=== PATIENT | male | born 1960 | race Caucasian/White ===

== ENCOUNTER 2024-07-02 22:44 | Inpatient (IN) | payer OTHER, SELFPAY ==
[2024-07-02] VITALS (8 sets, daily range): BP systolic 119–138; BP diastolic 71–115; BMI 34.6; BMI 36.0
[2024-07-02 16:50] LABS: % Basophils 0.5 % (0-2); % Immature Granulocytes 0.3 % (0-0.5); % Lymphocytes 27.2 % (20.5-51.1); % Monocytes 15.1 % (1.7-9.3); % Neutrophils 55.9 % (42.2-75.2); Absolute Eosinophils 0.1 10^3/uL (0-0.7); Absolute Lymphocytes 1.6 10^3/uL (1.2-3.4); Absolute Monocytes 0.9 10^3/uL (0.1-0.6); Absolute Neutrophils 3.3 10^3/uL (1.4-6.5); Hematocrit 39.8 % (39.0-52.0); Hemoglobin 13.7 g/dL (13.0-18.0); Mean Corp Hgb Conc. 34.4 g/dL (33.0-37.0); Mean Corpuscular Hgb 30.7 pg (27.0-31.0); Mean Corpuscular Volume 89.2 fL (80.0-94.0); Mean Platelet Volume 8.3 fL (7.4-10.4); Nucleated Red Blood Cells % 0 % (-); Platelet Count 232 10^3/uL (130-400); Red Blood Cell Count 4.46 10^6/uL (4.70-6.10); Red Cell Dist. Width 13.2 % (11.5-14.5)
[2024-07-02 17:13] LABS: ALT (SGPT) 27 U/L (0-50); AST (SGOT) 32 U/L (17-59); Albumin 3.7 g/dl (3.5-5.0); Alkaline Phosphatase 66 U/L (38-126); Blood Urea Nitrogen 10 mg/dl (9-20); Calcium 8.9 mg/dl (8.4-10.2); Carbon Dioxide 21 mmol/L (22-30); Chloride 107 mmol/L (98-107); Glucose 111 mg/dl (70-99); Potassium 3.7 mmol/L (3.5-5.1); Sodium 142 mmol/L (135-145); Total Bilirubin 0.8 mg/dl (0.2-1.3); Total Protein 6.1 g/dl (6.3-8.2); eGFR > 60.00
[2024-07-02 17:22] LABS: NT-proBNP 1180 pg/ml; Troponin I < 0.012 ng/ml
--- NOTE | 2024-07-02 20:05 | ED.GENMED ---
History of Present Illness
General
Chief Complaint: Breathing Problem
Source: patient
Exam Limitations: none
Time Seen by Provider: 07/02/24 19:38
Nursing documentation reviewed up to this point in time: agreed with
History of Present Illness
History of Present Illness:
64-year-old male type II diabetic not currently on meds diet controlled presents with shortness of breath onset a week ago seen in urgent care told he had a pleural effusion referred to the ER for evaluation no fever occasions or cough has trace
edema no history of congestive heart failure
Past History
Past History
ED Past Medical History: Hypercholesterolemia and NIDDM
ED Past Surgical History: Cholecystectomy and Orthopedic
Social History
Tobacco: Non-smoker
Alcohol: Occasional
Drug: None
Living: with family
Employment: Employed
Review of Systems
Review of Systems
All Other Systems: Not applicable
Constitutional: Denies fever or fatigue
EENT: Reports no symptoms
Respiratory: Reports cough and trouble breathing
Cardiac: Reports no symptoms
ABD/GI: Reports no symptoms
: Reports no symptoms
Musculoskeletal: Reports no symptoms
Skin: Reports no symptoms
Neurological: Reports no symptoms
Endocrine: Reports no symptoms
Hematologic/Lymphatic: Reports no symptoms
Phy Exam
Physical Exam
Physical Exam:
Physical Exam
General: Tachypneic 64
Neck: No jaundice
Heart: Irregular
Lungs: Crackles at the bases left greater than right
Abdomen: Nontender
Neuro: alert and oriented. no focal neurological deficits
Skin: no rash
Psychiatric: well kept. interactive and cooperative
Extremities: Trace edema
Scores
Heart Failure Risk
Heart Failure Risk Score: Yes
History of Stroke or TIA: No
History of intubation for respiratory distress: No
Heart rate on ED arrival >/= 110: Yes
SaO2 <90% on arrival on room air: No
HR >/=110 during 3min walk test (or too ill to perform test): Yes
ECG has acute ischemic changes: No
Urea >/=12mmol/L (BUN 33.6mg/dL): No
Serum CO2>/=35mmol/L: No
Troponin I or T elevated to NC Level (0.4mg/dL): No
NT-proBNP >/=5,000ng/L (5,000pg/ml): No
HF Risk Score: 2
Admission Status: MEDIUM RISK 9.2% Consider observation or discharge to home with homecare & f/u visit to PCP/[facility], or SNF for treatment
Course
Orders/Labs/Results
Orders:
Orders
07/02/24 16:02
Electrocardiogram (*1) Urgent
Reason for Study: Abnormal EKG
EKG- Treatment ONCE
07/02/24 16:30
CMP [Comprehensive Metabolic Panel] Urgent
Complete Blood Count/With Diff Urgent
NT-proBNP Urgent
Troponin I Urgent
07/02/24 20:03
Cardiac Monitoring- Treatment ONCE
Furosemide [Lasix] 60 mg IV NOW STA
07/02/24 20:38
CR Chest - 2 Views Urgent
Comment:
Reason For Exam: sob, outpt film radiologist needs order to read fi
07/02/24 21:19
Add On- LAB Urgent
Tests Added?: Magnesium
Potassium Chloride [KCl] 40 meq PO NOW STA
Abnormal Lab Results
07/02/24
16:30
RBC 4.46 L 10^6/uL
(4.70-6.10)
Absolute Monos (auto) 0.9 H 10^3/uL
(0.1-0.6)
Monocytes % 15.1 H %
(1.7-9.3)
Carbon Dioxide 21 L mmol/L
(22-30)
Glucose 111 H mg/dl
(70-99)
Total Protein 6.1 L g/dl
(6.3-8.2)
07/02/24 16:30
07/02/24 16:30
Vital Signs
Initial and Last Documented VS:
Initial Vital Signs
Temp Pulse Resp BP Pulse Ox
97.9 F 61 16 138/94 97
07/02/24 15:53 07/02/24 15:53 07/02/24 15:53 07/02/24 15:53 07/02/24 15:53
Last Documented Vital Signs
Temp Pulse Resp BP Pulse Ox
97.9 F 110 30 124/97 95
07/02/24 15:53 07/02/24 20:33 07/02/24 19:15 07/02/24 20:33 07/02/24 19:15
MDM/Problems Addressed
Differential Diagnosis Includes:
Heart failure pneumonia pleural effusion PE pneumothorax
MDM/Problems Addressed:
Shortness of breath
Chronic conditions affecting care: DM
Acute Exacerbation and/or Progression of Chronic Illness: DM
*Radiology
Radiology exam reviewed: preliminary read by ED provider (Outpatient chest x-ray reviewed looks like pulmonary edema possible left)
*Pulse Oximetry
Patient hypoxic: no
*EKG
Interpreted by ED Provider?: Yes
Interpretation: abnormal
Comparison EKG: no comparison EKG present
Heart Rate: 108
Rate: tachycardiac
Rhythm: a-fib
Ischemia: non-specific ST changes
*Server Support Technician Interpretation
Rate: normal
Interpretation: normal
Heart Rate: 100
Rhythm: sinus
*Critical Care Note
Total Time (30-74mins, 75-104mins- exclusive of procedures): Not Applicable
Update Note
Update Note:
X-ray noted formal report pending proBNP and troponin noted will try dose of diuretic, environmental monitoring specialist
environmental monitoring specialist EKG noted looks like he is in and out of A-fib or flutter potassium noted will replete, check magnesium placed on supplemental oxygen discussed with patient and his spouse I believe he would benefit from admission suspect he is
developed congestive heart failure
ED Attending Note
-
Portions of this chart may have been created with voice recognition software.� Occasional wrong word or��sound alike� substitutions may have occurred due to the inherent limitations of voice recognition software.
Discharge Plan
Departure
Patient Disposition: Admit
Date of Disposition: 07/02/24
Time of Disposition: 21:22
Admit to: Telemetry
Presentation/result/management discussed w/ accepting MD/DO: Hospitalist
Patient with high blood pressure during this ER visit?: No
Condition: Fair
Discharge Problem:
CHF (congestive heart failure)
Referrals:
Breanna Dailey DO [Family Provider] -
Interventions
Interventions:
*Risk Screen - Suicide Last Done: 07/02/24 15:55
*General Assessment Last Done: 07/02/24 18:29
*Neglect/Abuse Screening Last Done: 07/02/24 15:55
ED- Fall Risk Assessment Last Done: 07/02/24 18:29
*ED COVID-19 Vaccine History Last Done: 07/02/24 18:29
ED- Cardiac Assessment Last Done: 07/02/24 18:29
ED- Pulmonary Assessment Last Done: 07/02/24 18:29
Discharge Date and Time
Print Language: URDU
[2024-07-02] MEDS: LASIX 60 MG IV (20:33)
--- NOTE | 2024-07-02 21:49 | HPS.HSE ---
Family Physician
-
Family Physician: Breanna Dailey DO
Chief Complaint
-
Dyspnea on exertion, shortness of breath, pleural effusion
History of Present Illness
This is a 64-year-old male with past medical history of diet controlled diabetes, hypertension and hyperlipidemia as well as ARGENIS on CPAP who presents to the emergency department with approximately 1 week of dyspnea on exertion.
Patient reports that he been in usual state of health up until about 1 week ago. He started developing dyspnea exertion. He denies having any chest pain. He denies any palpitations lightheadedness or dizziness. He denies any nausea or vomiting.
He denies any lower extremity edema. He denies having any cough fevers or chills. He denies any sick contact. There is been no recent travels. He denies any pleuritic chest pain. Patient denies any prior history of irregular heartbeat, CAD, MD,
asthma or COPD. He reports that he has slow amount of weight gain recently. In the past a been treated with GLP-1 agonist but this has been discontinued. He denies any medication changes.
He was seen in urgent care and x-ray performed showed pleural effusion. Was also found to have an irregular heartbeat and was sent to the emergency department.
In the ED he was afebrile hemodynamic stable with a blood pressure of 1 01/27/1997 and found to be in atrial fibrillation with a pulse of 110. ECG shows A-fib at a rate of 115. His troponin was negative. BNP was elevated at 1180. Chemistries were
unremarkable. CBC also unremarkable.
Medical History
Past Medical History
Past Medical History: Reports HTN, Hypercholesterolemia and NIDDM
Additional Past Medical History:
ARGENIS on CPAP
Past Surgical History: Reports None
Social History
Tobacco: Non-smoker
Alcohol: None
Drug: None
Personal:
Living: With Family
Employment: Employed
Family History
Family History: Not pertinent
Allergies / Home Medications
Allergies reflects when Allergies were last updated in [facility].
Home Medications with original date entered in [employer]
Allergy/Medication List:
Allergies
Allergy/AdvReac Type Severity Reaction Status Date / Time
No Known Allergies Allergy Verified 07/02/24 19:25
Home Medications
benazepril 20 mg tablet 20 mg PO DAILY 07/02/24
ibuprofen 200 mg tablet 400 mg PO Q6HPRN PRN mild pain 07/02/24
rosuvastatin 5 mg tablet 5 mg PO DAILY 07/02/24
Review of Systems
-
History Source: Patient
Constitutional: Reports No Symptoms
EENT: Reports No Symptoms
Respiratory: Reports Trouble Breathing
Cardiac: Reports No Symptoms
Abdomen/GI: Reports No Symptoms
: Reports No Symptoms
Musculoskeletal: Reports No Symptoms
Skin: Reports No Symptoms
Neurological: Reports No Symptoms
Endocrine: Reports No Symptoms
Hematologic/Lymphatic: Reports No Symptoms
Psych: Reports No Symptoms
Physical Exam
Vital Signs
Vital Signs
Temp Pulse Resp BP Pulse Ox
97.9 F 83 30 124/97 96
07/02/24 15:53 07/02/24 21:30 07/02/24 21:30 07/02/24 20:34 07/02/24 21:00
Physical Exam
General: Well Developed and Comfortable
HEENT: NormoCephalic, Anicteric, Moist mucous membranes and Atraumatic
Respiratory: Non Labored Respirations and Decreased Breath Sounds
Cardiac: S1/S2, Irregular Rhythm and Tachycardia
Breast: Deferred by me
GI: Soft, Non Tender, Non Distended and Normal Bowel Sounds
Rectal: Other
Genito-urinary: Deferred by me
Musculoskeletal: No Clubbing, No Cyanosis and No Edema
Skin: Warm
Neuro: AO x 3
Hematologic/Lymphatic: No Lymphadenopathy
Psych: Calm
Laboratory Results
-
07/02/24 16:30
07/02/24 16:30
Laboratory Results
Total Bilirubin 0.8 mg/dl (0.2-1.3) 07/02/24 16:30
AST 32 U/L (17-59) 07/02/24 16:30
ALT 27 U/L (0-50) 07/02/24 16:30
Alkaline Phosphatase 66 U/L (38-126) 07/02/24 16:30
Troponin I < 0.012 ng/ml 07/02/24 16:30
Data Reviewed
-
Medical Tests (Nuc Med, Echo, EKG etc): Image Personally Visualized and interpreted
Lab Data: Labs Reviewed by me
Impression/Plan
-
IMPRESSION:
PLAN:
1. CHF - New onset CHF with pleural effusion and elevated BNP. Dyspnea on exertion only history. No history of ischemia. ECG w/o ischemia. Trop negative. No prior ischemic w/u. No recent illness. No new medications Unclear etiology.
Possibly afib induced but unlikely. Etiology includes possibly pericardial effusion.
- admit to telemetry
- lasix 40mg iv bid for now
- echo
- check tsh, inflammatory markers
- check a1c, lipid panel
- initiate rate control
2. AFIB - New onset atrial fibrillation
- start diltiazem IV then gtt for rate control
- CHADS2 > 2, patient refusing anticoagulation pending further evaluation
3. DM II - diet control
- blood glucose achs for now w/ low dose sliding scale coverage
DVT PPX - lovenox sq
Code Status - Full
[2024-07-02 21:54] LABS: Magnesium 2.4 mg/dl (1.6-2.3)
[2024-07-02] MEDS: KCL 40 MEQ PO (22:17)
[2024-07-02] MEDS: CARDIZEM 20 MG IV (22:17)
[2024-07-02 22:37] LABS: Glucose - Point of Care 132 mg/dl (70-99)
--- NOTE | 2024-07-02 23:33 | RESPNOTE ---
pt declines cpap usage due to the facility not having nose pillows
[2024-07-03 00:34] VITALS: BMI 36.0
--- NOTE | 2024-07-03 00:52 | PTCARENOTE ---
Pt is aaox3, no c/o pain. pt is on 2L 96%. placed pt on tele showed sinus rhythm- confirmed w/ ekg. PJ=263/80 P=80. informed DRUG SAFETY DATA MANAGEMENT SPECIALIST Kash - instructed to hold off on Cardizem gtt and monitor on tele for now.
reviewed w/ pt afib and chf. - packets handed to pt.
pt oriented to room w/ call matos in reach.
[2024-07-03 03:44] VITALS: BP 106/71
[2024-07-03 05:20] VITALS: BMI 35.5
--- NOTE | 2024-07-03 05:53 | PTCARENOTE ---
pt converted back to afib but HR 80-100;s. VSS. informed INTERNIST Kash. jack portillo ordered for am.
[2024-07-03] MEDS: CARDIZEM 30 MG PO (06:22)
[2024-07-03 07:05] VITALS: BP 108/96
[2024-07-03 07:38] LABS: Glucose - Point of Care 120 mg/dl (70-99)
[2024-07-03] MEDS: ZESTRIL 20 MG PO (07:50)
[2024-07-03] MEDS: CRESTOR 5 MG PO (07:53)
[2024-07-03] MEDS: LOPRESSOR 25 MG PO ×2 (07:55→20:57)
[2024-07-03] MEDS: LASIX 40 MG IV ×2 (07:55→16:30)
[2024-07-03] MEDS: NOVOLOG FLEXPEN-LOW RESISTANCE SC ×3 (07:57→17:00)
--- NOTE | 2024-07-03 08:02 | W.PN.HOSP.TC ---
Addendum entered and electronically signed by Tyson Yancey MD 07/03/24 08:05:
TSH pending
Original Note:
Today's Communication/Plan
-
start oral BB
Cardio
Echo
Chest XR
Assessment / Plan
Assessment / Plan
71yo M with PMHx of DM diet controlled, HTN, HLD, anxiety came with 2 weeks of worsening SOB. Noticed gaining 15lbs over past couple of months, found in Afib with RVR and CHF
A/P:
#Afib with RVR, new onset
Declined therapeutic AC in ED - pending discussion with cardio
Rate control with BB, avoid Cardizem with acute CHF
Telemetry
#Acute new onset CHF
Echo, lasix, daily electrolytes, daily weight, low sodium diet
Chest XR
Cardio consult
#COPD not in exacerbation
cont bronchodilators
#HLD
#essential HT
cont home meds
#DM type 2 with unknown complications
Accuchecks, Insulin SS, DM diet, check HgbA1c
DVT ppx lovenox pending therapeutic AC
Full code
I have spent at least 58min reviewing chart, test results, communication with consultants and direct patient care
Anticipated Discharge: 24 - 48 hours
Subjective/Interval History
-
Date of Service: July 03, 2024
Objective Data
-
Labs:
Laboratory Results
07/03/24
07:18
Sodium Pending
Potassium Pending
Chloride Pending
Carbon Dioxide Pending
BUN Pending
Creatinine Pending
Glucose Pending
Calcium Pending
Vital Signs:
Vital Signs
Temp Pulse Resp BP Pulse Ox
98.2 F 80 18 118/70 98
07/03/24 03:44 07/03/24 07:50 07/03/24 03:44 07/03/24 07:50 07/03/24 03:44
I&O
07/02/24 07/03/24 07/04/24
06:59 06:59 06:59
Intake Total 480 / 480
Output Total 950 / 950
Balance -470 / -470
Review of Systems
-
History Source: Patient
All other systems: Reviewed and negative
Respiratory: Reports Trouble Breathing
Physical Exam
-
General: No Apparent Distress
HEENT: Normocephalic and Atraumatic
Respiratory: Clear to Auscultation
Cardiac: Irregular Rhythm and Murmur
GI: Soft, Nontender and Nondistended
Genito-urinary: No Costovertebral Tender
Musculoskeletal: No Clubbing, No Cyanosis and No Edema
Skin: Warm
Neuro: Awake, Alert, Oriented and AO x 3
Psych: Calm
[2024-07-03 08:11] LABS: Blood Urea Nitrogen 11 mg/dl (9-20); Calcium 8.7 mg/dl (8.4-10.2); Carbon Dioxide 25 mmol/L (22-30); Chloride 105 mmol/L (98-107); Estimated Creatinine Clearance > 125 ml/min; Glucose 124 mg/dl (70-99); HDL Cholesterol 49 mg/dl; LDL Cholesterol, Calculated 73 mg/dl; Magnesium 2.3 mg/dl (1.6-2.3); Potassium 4.4 mmol/L (3.5-5.1); Sodium 143 mmol/L (135-145); Total Cholesterol 143 mg/dl (50-199); Triglyceride 108 mg/dl (10-149); Very Low Density Lipoprotein 21 mg/dl (0-30); eGFR > 60.00
[2024-07-03 08:42] LABS: TSH Reflex To Free T4 2.21 uIU/ml (0.47-4.68)
--- NOTE | 2024-07-03 09:18 | CON.CAR ---
Addendum entered and electronically signed by Jake Drew DO 07/03/24 21:09:
I saw and examined the patient.
The Household Coordinator's note was reviewed and I agree with the note.
Comment:
Plan:
Discussed atrial fibrillation including rate control, rhythm control and stroke prophylaxis. He was at first not agreeable to anticoagulation then agreeable to Eliquis. Cont Metoprolol for rate control. Discussed amiodarone for now given PAfib with
intermittent sinus. Eventual consideration for possible PVI pending eval and tx of significant MR.
Cont IV lasix diuresis as he admitted to recent significant wt gain.
Reviewed echo with pt showing preserved EF with severe MR. Discussed that MR likely contributed to his HF and aFib. Discussed checking a DOROTHY to further eval MR and that he ultimately may require MV surgery likely as outpt pending DOROTHY findings. Will
likely undergo outpt cath to eval coronary anatomy as part of work up
Took time to answer all questions.
Original Note:
Consultation
Consultation Request
Date/Time Consultation Requested: 07/02/2024, 2313
Date/Time Consultation Performed: 07/03/2024, 918
Performing Provider: INGRID Jalloh for Jake Drew MD
Reason for Consultation: New onset heart failure, atrial fibrillation w/ rapid ventricular response
Medical History
-
History of Present Illness:
64-year-old male with history of diabetes mellitus (now diet controlled per pt), hypertension, hyperlipidemia, sleep apnea on CPAP, anxiety, COPD, who presents with a 1-week history of worsening shortness of breath and cough. He also noted a 15
pound weight gain over the past couple months. He was initially seen at an urgent care on 07/02/24 and a chest x-ray showed a pleural effusion (per report). He was also found to have an irregular heartbeat and sent to [place] ER. In the ER an
EKG showed A-fib with rapid ventricular response. proBNP was 1180. In the ER he was initially given IV Cardizem and subsequently started on oral Metoprolol. He declined anticoagulation. He also received Lasix 60 mg IV.
Pt reports VALDEZ x 1 week, occurs with walking up flight of steps. No PND, orthopnea, edema, +15 lb wt gain in 2-3 months, + palpitations intermittantly over past week, maxine with exertion w/ occ associated lightheadedness. No fever, chills.
Past medical history:
Diabetes mellitus (per pt now diet-controlled, previously on insulin, Metformin, SGLT2)
Hypertension
Hyperlipidemia
sleep apnea on CPAP
Anxiety
COPD
Past Medical History
Past Medical History: Other (as above)
Past Surgical History: Cholecystectomy
Social History
Tobacco: Non-Smoker
Alcohol: Daily (2-3 beverages daily wine, beer)
Drug: None
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
Family History
Family History: Reviewed & Not Pertinent
Allergies / Home Medications
Allergy/AdvReac Type Severity Reaction Status Date / Time
No Known Allergies Allergy Verified 07/02/24 19:25
�Medication �Instructions �Recorded �Confirmed �Type
benazepril 20 mg tablet 20 mg PO DAILY 07/02/24 07/03/24 History
ibuprofen 200 mg tablet 400 mg PO Q6HPRN PRN mild pain 07/02/24 07/02/24 History
rosuvastatin 5 mg tablet 5 mg PO DAILY 07/02/24 07/03/24 History
Review of Systems
-
History Source: Patient
All other systems: Negative unless noted
Physical Exam
Vital Signs
Temp Pulse Resp BP Pulse Ox
98.4 F 80 24 118/70 96
07/03/24 07:05 07/03/24 07:50 07/03/24 07:05 07/03/24 07:50 07/03/24 07:05
Lab Results
GEN: No distress, awake, Ox3
HEENT: supple, anicteric, mmm
LUNGS: decreased BS R LL, no wheezes/rales
CV: irreg, irreg S1/S2, 2/6 systolic murmur, loudest apex
ABD: soft, BS+, NT/ND, obese
EXT: No edema
NEURO: Gross non-focal
SKIN: No rash
07/02/24 16:30
07/03/24 07:18
Troponin I < 0.012 ng/ml 07/02/24 16:30
[id number]-[id number] Pept 1180 pg/ml 07/02/24 16:30
Impression / Plan
-
PCP: [facility] in [place]
Has never seen a paralegal legal secretary
Impression:
Atrial fibrillation-new diagnosis
acute heart failure-new diagnosis
pleural effusion
shortness of breath
palpitations
murmur
DM
HTN
hyperlipidemia
sleep apnea
COPD
NSVT on telemetry
Telemetry reviewed by me: atrial fibrillation HR 80s-90s with bursts to 140s, occasionally alternating with NSR. 24 beat NSVT HR 150bpm @ 0806, 11 beat NSVT 0811
EKG personally reviewed 07/02/24 2356: NSR, iRBBB
EKG personally reviewed 07/02/24 1608:afib with RVR and iRBBB, HR 115
No known previous CV studies
Plan:
Afib- new diagnosis. Has had symptoms for past week. Going in an out of afib on telemetry, HRs <100 bpm with occ bursts to 130-140s. Start anticoagulation-spoke with pt about this and he agrees. Start Eliquis 5 mg bid-I ordered. [id number] 3
(HTN, DM, heart failure). Has known sleep apnea and uses CPAP consistently. Discussed case with Dr Drew, will start Amiodarone load given paroxysmal afib and VT on telemetry-I ordered. Should get CXR today- I ordered. Daily EKG. TSH WNL, LFTs
WNL. If afib becomes persistent consider DOROTHY/CV given acute heart failure. Decrease ETOH use
TSH 2.21
continue telemetry
acute heart failure- one week h/o VALDEZ and recent 15 lb wt gain over past few months. BNP 1180 and admission and pleural effusion on CXR at urgent care. Agree with continued diuresis with IV Lasix. Check echo today.
continue RENEE-I, may eventually switch Metoprolol tartrate to succinate given heart failure.
I/O, fluid restrict to 48 oz., low Na diet
troponin negative
on oxygen 2L
VT - 24 beat NSVT on telemetry today
-newly on beta tushar, starting Amiodarone for afib/VT
-check echo
keep K>4, Mag >2
murmur- noted on exam. Pt denies h/o murmur, has not had echo in past. Check echo today.
DM - per pt, when first diagnosed 5-6 yrs ago, needed to be on Insulin, metformin, SGLT2. He tells me he was able to get glucose controlled with diet and now off meds. Monitor glucose while inpt, check HgbA1c
HTN - continue - RENEE-I, now on Metoprolol. BPs controlled
sleep apnea- continue CPAP
hyperlipidemia - continue statin, LDL 73 (07/03/24).
Data Reviewed
-
EKG: Tracing Personally Visualized and interpreted
Labs: Labs Reviewed by me
--- NOTE | 2024-07-03 10:03 | PTCARENOTE ---
07:30 Received patient AAOx3. Pt on Telemetry - NSR, BBB, PVC's- also going in an out of A-Fib. HR range between 80-140. Intermittently sustaining 130-140. Dr. Yancey made aware. 08:00 HR currently in 80 range. Pt given Lopressor PO as
ordered. IV Lopressor discontinued by MD. Javed to assess patient status.
--- NOTE | 2024-07-03 11:15 | CM ---
Patient seen bedside, initial assessment completed. Patient resides with his , son, daughter in law, and three grandchildren in a multiple story home, one step to enter. Patient currently on O2, is not on home O2, does have a CPAP. Patient
denies VN or SNF history. Patient confirms PCP Breanna Mancilla, pharmacy [facility] in [place]. Patient reports he does not have insurance, agreeable for CM to contact [facility] from [facility]. CM placed call to [facility], will prescreen patient. CM
will continue to follow for all discharge planning needs.
Plan; home no needs likely.
[2024-07-03] MEDS: PACERONE 400 MG PO ×3 (11:20→22:59)
[2024-07-03] MEDS: ELIQUIS 5 MG PO ×2 (11:20→20:57)
[2024-07-03 11:29] VITALS: BP 103/56
--- NOTE | 2024-07-03 12:46 | PTCARENOTE ---
12:30 Pt had a 13 beat run of V tach on tele, on arrival back from x-ray an echo. Cardiology PA made aware an reviewed. Continuing amiodarone load as ordered. Cont to assess patient status.
[2024-07-03 13:08] LABS: Glucose - Point of Care 153 mg/dl (70-99)
[2024-07-03 15:33] VITALS: BP 116/73
[2024-07-03 16:45] LABS: Glucose - Point of Care 102 mg/dl (70-99)
--- NOTE | 2024-07-03 17:18 | PTCARENOTE ---
1635- Pt has an 11 beat run of v-tach, 1656-4 beat run of V -tach, 1700-10 beat run of v-tach. Cardiology made aware. Probably aberrancy from a fib as per cardiology. Cont to assess patient status.
[2024-07-03 19:24] VITALS: BP 103/81
[2024-07-03 21:20] LABS: Glucose - Point of Care 98 mg/dl (70-99)
[2024-07-03 22:59] VITALS: BP 111/62
[2024-07-04] VITALS (7 sets, daily range): BP systolic 92–116; BP diastolic 45–73; BMI 35.1
[2024-07-04] MEDS: NOVOLOG FLEXPEN-LOW RESISTANCE SC ×3 (07:45→17:00)
[2024-07-04 07:46] LABS: Glucose - Point of Care 130 mg/dl (70-99)
--- NOTE | 2024-07-04 08:37 | W.PN.CARDCBS ---
Today's Communication / Plan
-
Cont rate control strategy for PAfib. Continues to go in and out of Afib. Cont Metoprolol for rate control. Cont Eliquis for anticoagulation. Cont Amiodarone for rate control and PAFib.
Receiving 400mg TID amiodarone.
Possible NSVT vs aberrancy. Cont Amiodarone and beta tushar. Keep K>4, Mag >2
Cont IV lasix diuresis, wt is down 3 lbs over last 24 hrs. He admitted to recent significant wt gain 15 lbs prior to admit. Cont beta tushar and ACEI
Sodium and fluid restriction. HF teaching.
Reviewed echo with pt showing preserved EF with severe MR. Discussed that MR likely contributed to his HF and aFib. Reviewed DOROTHY today showing severe MR with torn chord P2. Discussed CT surgical eval with Dr Maldonado for eval for possible MV repair vs
replacement, likely as outpt. Will likely undergo outpt cath to eval coronary anatomy as part of work up
Impression / Plan
-
.
PCP: [facility] in [place]
Repeat Photocomposing Machine Operator: none, seen initially by Dr Drew
Impression:
Atrial fibrillation-new diagnosis
Acute heart failure-new diagnosis
Severe MR with torn cordae post leaflet.
Small b/l pleural effusions
DM-2, HbA1c 6.
HTN
Hyperlipidemia
ARGENIS on CPAP
COPD
NSVT on telemetry vs aberrancy
Overweight
Daily alcohol
EKG personally reviewed 07/02/24 2356: NSR, iRBBB
EKG personally reviewed 07/02/24 1608:afib with RVR and iRBBB, HR 115
Echo Jul 03 2024: EF 65-70% with severe eccentric MR.
Plan:
Cont rate control strategy for PAfib. Continues to go in and out of Afib. Cont Metoprolol for rate control. Cont Eliquis for anticoagulation. Cont Amiodarone for rate control and PAFib.
Receiving 400mg TID amiodarone.
Possible NSVT vs aberrancy. Cont Amiodarone and beta tushar. Keep K>4, Mag >2
Cont IV lasix diuresis, wt is down 3 lbs over last 24 hrs. He admitted to recent significant wt gain 15 lbs prior to admit. Cont beta tushar and ACEI
Sodium and fluid restriction. HF teaching.
Cr stable.
Reviewed echo with pt showing preserved EF with severe MR. Discussed that MR likely contributed to his HF and aFib. Reviewed DOROTHY today showing severe MR with torn chord P2. Discussed CT surgical eval with Dr Maldonado for eval for possible MV repair vs
replacement, likely as outpt. Will likely undergo outpt cath to eval coronary anatomy as part of work up
Troponin negative
DM tx as per primary service
Cont CPAP for ARGENIS
Continue statin for hyperlipiemia, LDL 73 (07/03/24).
Progress Note - Repeat Photocomposing Machine Operator
Subjective
Date of Service: July 04, 2024
Pt seen and examined. No complaints. No chest pain or shortness of breath.
Objective
Labs:
07/02/24 16:30
Labs
Hgb 13.7 g/dL (13.0-18.0) 07/02/24 16:30
Hct 39.8 % (39.0-52.0) 07/02/24 16:30
Plt Count 232 10^3/uL (130-400) 07/02/24 16:30
Sodium 143 mmol/L (135-145) 07/03/24 07:18
Potassium 4.4 mmol/L (3.5-5.1) 07/03/24 07:18
BUN 11 mg/dl (9-20) 07/03/24 07:18
Creatinine 0.7 mg/dL (0.7-1.3) 07/03/24 07:18
Glucose 124 mg/dl (70-99) H 07/03/24 07:18
Troponins
07/02/24
16:30
Troponin I < 0.012
Vital Signs and I&O:
Vital Signs
Temp Pulse Resp BP Pulse Ox
97.6 F 88 18 104/66 98
07/04/24 03:55 07/04/24 03:55 07/04/24 03:55 07/04/24 03:55 07/04/24 03:55
Vital Signs
Temp Pulse Resp BP Pulse Ox
97.6 F 88 18 104/66 98
07/04/24 03:55 07/04/24 03:55 07/04/24 03:55 07/04/24 03:55 07/04/24 03:55
Intake & Output
07/02/24 07/03/24 07/04/24 07/05/24
06:59 06:59 06:59 06:59
Intake Total 480 / 480 600 / 600
Output Total 950 / 950 2850 / 2850
Balance -470 / -470 -2250 / -2250
Physical Exam
Physical Exam
General: No acute distress, AAOX3
Neck: Negative JVD
Heart: Irregularly irregular, Negative S3 positive S1/S2, Negative S4, Holosystolic murmur
Lungs: CTA b/l, negative wheezes/rales/rhonchi
Abd: Truncal obesity. Positive BS, NT/ND, neg rebound/rigidity/guarding
Ext: Negative cyanosis/clubbing/edema
Neuro: nonfocal
[2024-07-04 09:04] LABS: Blood Urea Nitrogen 15 mg/dl (9-20); Carbon Dioxide 29 mmol/L (22-30); Chloride 99 mmol/L (98-107); Estimated Creatinine Clearance 100 ml/min; Glucose 128 mg/dl (70-99); Potassium 4.2 mmol/L (3.5-5.1); Sodium 141 mmol/L (135-145); eGFR > 60.00
--- NOTE | 2024-07-04 10:19 | CONSULT.CT ---
Consultation
-
Date/Time Consultation Requested: 07/04
Date/Time Consultation Performed: 07/04
Requesting Provider: Kenroy Drew
Performing Provider: Lia Villa/Javier Maldonado
Reason for Consultation: evaluate for mitral repair/replacement
Patient History
Physicians
Family Physician: Breanna Dailey
Outpatient Warehouse Attendant: shari [employer]OU[employer] DRIVER
Inpatient Warehouse Attendant: Kenroy Drew
History of Present Illness
Butch Guerrero is a 64-year-old , [id number] male in usual state of health until approximately 1 week prior to admission when he began noticing exertional dyspnea climbing stairs. Patient denied chest pain. On 07/02, patient sought
treatment at urgent care center and was noted to be in atrial fibrillation. Patient was referred to emergency room for further evaluation. Admission BNP was 1180. Patient was diuresed and was started on Eliquis, metoprolol, and amiodarone. His
weight decreased from 106 to 104.5 kg. Eliquis was initiated. A TTE on 07/03 reported an EF of 65-70%, severe mitral regurgitation with a torn P2 cord, trace AI and TR. Patient is currently sitting in bed comfortable, without shortness of breath.
He has not had a cardiac catheterization performed.
Patient denies history of COPD
Past Medical History
Past Medical History: HTN, Hypercholesterolemia, NIDDM (diet only), ARGENIS (uses CPAP w/auto setting) and Other (obesity (BMI 35.1))
Past Surgical History
Past Surgical History: Cholecystectomy and Orthopedic (B/L knee arthroscopy)
Dental History
Dental cleaning for months ago
Family History
Mother: N/A
Father: N/A
Social History
Alcohol: None
Drug: None
Tobacco: Non-Smoker
Personal:
Living: With Spouse
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
Allergies
Allergy/AdvReac Type Severity Reaction Status Date / Time
No Known Allergies Allergy Verified 07/02/24 19:25
Home Medications
�Medication �Instructions �Recorded �Confirmed �Type
benazepril 20 mg tablet 20 mg PO DAILY 07/02/24 07/03/24 History
ibuprofen 200 mg tablet 400 mg PO Q6HPRN PRN mild pain 07/02/24 07/02/24 History
rosuvastatin 5 mg tablet 5 mg PO DAILY 07/02/24 07/03/24 History
Review of Systems
-
History Source: Patient
General: Reports No Symptoms
HEENT: Reports No Symptoms
Respiratory: Reports VALDEZ
Cardiac: Reports No Symptoms
Abdomen/GI: Reports No Symptoms
: Reports No Symptoms
Musculoskeletal: Reports No Symptoms
Skin: Reports No Symptoms
Neurological: Reports No Symptoms
Vascular: Reports No Symptoms
Physical Exam
Vital Signs
Temp 97.6 F 07/04/24 03:55
Temp route: Oral 07/04/24 03:55
Pulse 88 07/04/24 03:55
Rhythm: Atrial fibrillation 07/03/24 20:45
With- Bundle Branch Block Confi, PVC's Monomorphic, Atrial fibrillation 07/03/24 07:45
Resp Rate 18 07/04/24 03:55
Blood pressure 104/66 07/04/24 03:55
Blood pressure extremity used: Right upper arm 07/04/24 03:55
Position: Lying 07/04/24 03:55
MAP (cuff-Love Monitor) 86 07/02/24 23:00
SaO2 98 07/04/24 03:55
Nasal Cannula flow liters per minute 2 07/04/24 03:55
Oxygen Mode of Delivery Room air 07/02/24 15:53
Acceptable pain level during hospitalization? 0 07/02/24 15:55
Can the patient verbally communicate their pain? Yes 07/03/24 07:45
Actual Weight 104.581 kg 07/04/24 04:56
Body Mass Index (BMI) 35.1 07/04/24 04:56
Labs
07/02/24 16:30
07/04/24 07:49
Hemoglobin A1c 6.0 % (4.0-5.6) H 07/03/24 07:18
Troponin I < 0.012 ng/ml 07/02/24 16:30
Qtp-M-Aawvperjgcr Pept 1180 pg/ml 07/02/24 16:30
Exam
General: No Apparent Distress, Comfortable and Other (obese)
HEENT: Normocephalic, Anicteric, Moist Mucous Membranes and PERRLA
Neck: Trachea Midline
Respiratory: Clear
Cardiac: S1/S2, Regular Rhythm and Murmur (II/ HSM LSB 5th ICS>axillae)
GI: Normal Bowel Sounds and Other (obese)
Rectal: Deferred by Provider
Skin: Warm and Dry
Neuro: AO x 3, No Motor Deficits and Nonfocal/Grossly Intact
Extremities: Pulses (+2/4 DP pulses B/L)
Lymph: No Lymphadenopathy
Psych: Calm
Assessment / Plan
-
64-year-old male with new onset atrial fibrillation and severe mitral regurgitation with torn P2 cord and preserved ejection fraction
Patient converted to sinus rhythm with beta-tushar and amiodarone. He is on Eliquis 5 mg twice daily. This will need to be discontinued 3 days prior to surgery. Patient will need left heart catheterization and to obtain dental clearance from his
dentist. Dr. Maldonado will review imaging and speak with patient.
- CT C/A/P ordered
Data Reviewed
-
EKG: Report Reviewed by me and Discussed with Physician
Echo: Report Reviewed by me and Discussed with Physician
Radiology: Report Reviewed by me and Discussed with Physician
Labs: Labs Reviewed by me and Discussed with Physician
[2024-07-04] MEDS: ZESTRIL 20 MG PO (10:24)
[2024-07-04] MEDS: ELIQUIS 5 MG PO ×2 (10:24→20:49)
[2024-07-04] MEDS: LASIX 40 MG IV ×2 (10:27→16:35)
[2024-07-04] MEDS: PACERONE 400 MG PO ×3 (10:27→22:04)
[2024-07-04] MEDS: LOPRESSOR 25 MG PO ×2 (10:27→20:49)
[2024-07-04] MEDS: CRESTOR 5 MG PO (10:27)
--- NOTE | 2024-07-04 10:44 | CM ---
CM reviewed chart, met with patient bedside. Patient reports his spoke with Christy from [facility], does not have any questions for CM at this time. Patient remains on O2. Patient denies any needs at this time, will follow for all discharge planning
needs.
Plan; home with family, [facility] pending.
--- NOTE | 2024-07-04 11:53 | W.PN.UPDATE ---
Update Note
Progress Note Update
Spoke with Ava via phone [phone]
Discussed AFib, HF and severe MR and need for CT surgery eval. As part of work up, he will require cardiac cath. She states that she would ask that this be performed prior to d/c. Would continue with diuresis and hold Eliqius in AM and plan for left
(and possible right heart cath if necessary) on sundayJul 07. She was appreciative of explanation. CT surgery to eval.
[2024-07-04 12:00] LABS: Glucose - Point of Care 132 mg/dl (70-99)
--- NOTE | 2024-07-04 12:18 | W.PN.HOSP.TC ---
Today's Communication/Plan
-
cont lasix and daily labs
check Bcx
Assessment / Plan
Assessment / Plan
71yo M with PMHx of DM diet controlled, HTN, HLD, anxiety came with 2 weeks of worsening SOB. Noticed gaining 15lbs over past couple of months, found in Afib with RVR and CHF, severe MR with torn chordae, planned for cardiac cath on 07/07/24 for preop
eval.
A/P:
#Afib with RVR, new onset
#severe MR with torn chordae
Elqiuis when possible
Echo with severe eccentric MR, DOROTHY on 07/04/24 flail posterior MV leaflet, torn chordae P2
Bcx pending
CTS eval, planned for CT C/A/P for preop and cardiac cath on 07/07/24
Rate control with BB, avoid Cardizem with acute CHF
Telemetry
#Acute hypoxic insufficiency 2/2 Acute new onset CHF
lasix, daily electrolytes, daily weight, low sodium diet
Cardio consult
#COPD not in exacerbation
cont bronchodilators
#HLD
#essential HT
cont home meds
#DM type 2 with unknown complications
Accuchecks, Insulin SS, DM diet, check HgbA1c
DVT ppx lovenox pending therapeutic AC
Full code
I have spent at least 38min reviewing chart, test results, communication with consultants and direct patient care
Anticipated Discharge: > 48 hours
Subjective/Interval History
-
Date of Service: July 04, 2024
Objective Data
-
Labs:
Laboratory Results
07/04/24
07:49
Sodium 141
Potassium 4.2
Chloride 99
Carbon Dioxide 29
BUN 15
Creatinine 0.9
Glucose 128 H
Calcium 9.0
Vital Signs:
Vital Signs
Temp Pulse Resp BP Pulse Ox
97.7 F 75 20 95/63 97
07/04/24 11:15 07/04/24 11:15 07/04/24 11:15 07/04/24 11:15 07/04/24 11:15
I&O
07/03/24 07/04/24 07/05/24
06:59 06:59 06:59
Intake Total 480 / 480 600 / 600
Output Total 950 / 950 2850 / 2850
Balance -470 / -470 -2250 / -2250
Review of Systems
-
History Source: Patient
All other systems: Reviewed and negative
Physical Exam
-
General: No Apparent Distress
HEENT: Normocephalic and Atraumatic
Respiratory: Clear to Auscultation
Cardiac: Irregular Rhythm and Murmur
GI: Soft, Nontender and Nondistended
Musculoskeletal: No Clubbing, No Cyanosis and No Edema
Neuro: Awake, Alert, Oriented and AO x 3
Psych: Calm
[2024-07-04 16:56] LABS: Glucose - Point of Care 119 mg/dl (70-99)
[2024-07-04 22:11] LABS: Glucose - Point of Care 153 mg/dl (70-99)
[2024-07-05] VITALS (8 sets, daily range): BP systolic 98–128; BP diastolic 57–75; BMI 35.0
[2024-07-05 06:02] LABS: INR 1.39; PT 16.9 Sec (11.4-14.6)
[2024-07-05 06:07] LABS: % Basophils 0.4 % (0-2); % Eosinophils 2.8 % (0-6); % Immature Granulocytes 1.3 % (0-0.5); % Lymphocytes 23.8 % (20.5-51.1); % Monocytes 15.3 % (1.7-9.3); % Neutrophils 56.4 % (42.2-75.2); Absolute Eosinophils 0.2 10^3/uL (0-0.7); Absolute Immature Granulocytes 0.1 10^3/uL (0-0.05); Absolute Lymphocytes 1.6 10^3/uL (1.2-3.4); Absolute Neutrophils 3.8 10^3/uL (1.4-6.5); Hemoglobin 13.8 g/dL (13.0-18.0); Mean Corp Hgb Conc. 34.5 g/dL (33.0-37.0); Mean Corpuscular Hgb 31.3 pg (27.0-31.0); Mean Corpuscular Volume 90.7 fL (80.0-94.0); Mean Platelet Volume 8.4 fL (7.4-10.4); Nucleated Red Blood Cells % 0 % (-); Platelet Count 243 10^3/uL (130-400); Red Blood Cell Count 4.41 10^6/uL (4.70-6.10); Red Cell Dist. Width 12.7 % (11.5-14.5); White Blood Cell Count 6.7 10^3/uL (4.8-10.8)
[2024-07-05 06:15] LABS: ALT (SGPT) 32 U/L (0-50); AST (SGOT) 34 U/L (17-59); Albumin 3.6 g/dl (3.5-5.0); Alkaline Phosphatase 58 U/L (38-126); Blood Urea Nitrogen 19 mg/dl (9-20); Calcium 8.8 mg/dl (8.4-10.2); Carbon Dioxide 31 mmol/L (22-30); Chloride 97 mmol/L (98-107); Direct Bilirubin 0.2 mg/dl (0.0-0.4); Estimated Creatinine Clearance 100 ml/min; Glucose 121 mg/dl (70-99); Magnesium 2.3 mg/dl (1.6-2.3); Potassium 4.1 mmol/L (3.5-5.1); Sodium 137 mmol/L (135-145); Total Protein 5.9 g/dl (6.3-8.2); eGFR > 60.00
[2024-07-05 09:35] LABS: Glucose - Point of Care 179 mg/dl (70-99)
[2024-07-05] MEDS: NOVOLOG FLEXPEN-LOW RESISTANCE SC ×3 (09:36→16:36)
[2024-07-05] MEDS: CRESTOR 5 MG PO (09:40)
[2024-07-05] MEDS: ELIQUIS 5 MG PO (09:40)
[2024-07-05] MEDS: PACERONE 400 MG PO ×3 (09:40→21:56)
[2024-07-05] MEDS: ZESTRIL PO (09:42)
[2024-07-05] MEDS: ZESTRIL 5 MG PO (09:45)
[2024-07-05] MEDS: LOPRESSOR 25 MG PO ×2 (09:45→20:48)
--- NOTE | 2024-07-05 09:52 | W.PN.HOSP.TC ---
Today's Communication/Plan
-
COnt current Lasix - with episodes of low BP cautious for overdiuresis
Assessment / Plan
Assessment / Plan
71yo M with PMHx of DM diet controlled, HTN, HLD, anxiety came with 2 weeks of worsening SOB. Noticed gaining 15lbs over past couple of months, found in Afib with RVR and CHF, severe MR with torn chordae, planned for cardiac cath on 07/07/24 for preop
eval.
A/P:
#Afib with RVR, new onset
#severe MR with torn chordae
Elqiuis when possible
Echo with severe eccentric MR, DOROTHY on 07/04/24 flail posterior MV leaflet, torn chordae P2
Bcx pending
CTS eval, planned for CT C/A/P for preop and cardiac cath on 07/07/24
Rate control with BB, avoid Cardizem with acute CHF
Telemetry
#Acute hypoxic insufficiency 2/2 Acute new onset CHF
lasix, daily electrolytes, daily weight, low sodium diet
Cardio consult
#COPD not in exacerbation
cont bronchodilators
#HLD
#essential HT
cont home meds
#DM type 2 with unknown complications
Accuchecks, Insulin SS, DM diet, check HgbA1c
DVT ppx lovenox pending therapeutic AC
Full code
I have spent at least 38min reviewing chart, test results, communication with consultants and direct patient care
Anticipated Discharge: > 48 hours
Subjective/Interval History
-
Date of Service: July 05, 2024
Objective Data
-
Labs:
Laboratory Results
07/05/24
05:27
WBC 6.7
Hgb 13.8
Hct 40.0
Plt Count 243
PT 16.9 H
INR 1.39
APTT 34.0
Sodium 137
Potassium 4.1
Chloride 97 L
Carbon Dioxide 31 H
BUN 19
Creatinine 0.9
Glucose 121 H
Calcium 8.8
Total Bilirubin 1.0
AST 34
ALT 32
Alkaline Phosphatase 58
Vital Signs:
Vital Signs
Temp Pulse Resp BP Pulse Ox
97.7 F 96 18 112/67 95
07/05/24 08:00 07/05/24 09:33 07/05/24 08:00 07/05/24 09:33 07/05/24 08:00
I&O
07/04/24 07/05/24 07/06/24
06:59 06:59 06:59
Intake Total 600 / 600 720 / 720
Output Total 2850 / 2850 1450 / 1450
Balance -2250 / -2250 -730 / -730
Review of Systems
-
History Source: Patient
All other systems: Reviewed and negative
Physical Exam
-
General: No Apparent Distress
HEENT: Normocephalic and Atraumatic
Respiratory: Clear to Auscultation; Negative Wheezes, Rales or Rhonchi
Cardiac: Regular Rhythm; Negative Murmur
GI: Soft, Nontender and Nondistended
Genito-urinary: No Costovertebral Tender
Musculoskeletal: No Clubbing, No Cyanosis and No Edema
Psych: Calm
--- NOTE | 2024-07-05 10:02 | W.PN.CARDCBS ---
Addendum entered and electronically signed by Marc Mares MD 07/05/24 12:53:
I saw and examined the patient.
The TAKER OFF DRYING KILN or PA's note was reviewed and I agree with the note.
Comment: General: Well developed, well nourished in NAD.
Neck: Supple, no JVD, HJR, carotids +2 B/L, no bruits bilaterally.
Heart: Non displaced PMI, RRR, 2/6 apical holosystolic murmur, No S3, S4, no rubs.
Lungs: Few crackles at the base
Extremities: No clubbing, cyanosis or edema bilaterally.
Neuro: Grossly nonfocal, awake, alert and oriented x3.
He continues to do well. Will decrease IV Lasix to once daily. Plan is for cardiac catheterization on Saturday 07/07. Will transition Eliquis to IV heparin tonight and start aspirin 325 mg daily in AM. Eventually change to baby aspirin but
catheterization likely to be diagnostic in preparation for mitral valve repair. Timing of mitral valve repair unclear but likely will be outpatient. Decrease lisinopril due to hypotension. Telemetry with continued A-fib episodes and will continue
amiodarone loading. Discussed with patient and in detail.
Original Note:
Today's Communication / Plan
-
Decrease IV Lasix to daily
Continue Lopressor, amiodarone
Will transition Eliquis to IV heparin tonight in preparation for cardiac catheterization
Lisinopril decreased due to hypotension
Timing of mitral valve surgery per patient preference/CT surgery schedule accommodation
Impression / Plan
-
.
PCP: [facility] in [place]
Dowel Maker: none, seen initially by Dr Drew
Impression:
Atrial fibrillation-new diagnosis
Acute heart failure-new diagnosis
Severe MR with torn cordae post leaflet.
Small b/l pleural effusions
DM-2, HbA1c 6.
HTN
Hyperlipidemia
ARGENIS on CPAP
COPD
NSVT on telemetry vs aberrancy
Overweight
Daily alcohol
EKG personally reviewed 07/02/24 2356: NSR, iRBBB
EKG personally reviewed 07/02/24 1608:afib with RVR and iRBBB, HR 115
Echo Jul 03 2024: EF 65-70% with severe eccentric MR.
Plan:
-Patient feeling improved from admission. Reports he feels close to his dry weight. Remains with mild dry cough and with some borderline blood pressures overnight/this morning
-Will decrease IV Lasix from twice daily to 40 mg daily. Creatinine stable
-On review of telemetry overnight, appears to continue with paroxysms of A-fib. Continue Lopressor, amiodarone load.
-Will plan to transition from Eliquis to IV heparin this evening with plans for cardiac catheterization on Sunday
-trop negative
-Lisinopril dose decreased and hold parameters placed given hypotension.
-Will discuss with CT surgery if plan for inpatient versus outpatient MV repair, and timing
-LDL 73. continue OP crestor
-d/w nursing
Progress Note - Dowel Maker
Subjective
Date of Service: July 05, 2024
Reports feeling improved from admission. States he feels close to his dry weight
Objective
Labs:
07/05/24 05:27
07/05/24 05:27
Labs
Hgb 13.8 g/dL (13.0-18.0) 07/05/24 05:27
Hct 40.0 % (39.0-52.0) 07/05/24 05:27
Plt Count 243 10^3/uL (130-400) 07/05/24 05:27
PT 16.9 Sec (11.4-14.6) H 07/05/24 05:27
INR 1.39 07/05/24 05:27
APTT 34.0 Sec (23.4-35.0) 07/05/24 05:27
Sodium 137 mmol/L (135-145) 07/05/24 05:27
Potassium 4.1 mmol/L (3.5-5.1) 07/05/24 05:27
BUN 19 mg/dl (9-20) 07/05/24 05:27
Creatinine 0.9 mg/dL (0.7-1.3) 07/05/24 05:27
Glucose 121 mg/dl (70-99) H 07/05/24 05:27
Troponins
07/02/24
16:30
Troponin I < 0.012
Vital Signs and I&O:
Vital Signs
Temp Pulse Resp BP Pulse Ox
97.7 F 96 18 112/67 95
07/05/24 08:00 07/05/24 09:33 07/05/24 08:00 07/05/24 09:33 07/05/24 08:00
Vital Signs
Temp Pulse Resp BP Pulse Ox
97.7 F 96 18 112/67 95
07/05/24 08:00 07/05/24 09:33 07/05/24 08:00 07/05/24 09:33 07/05/24 08:00
Intake & Output
07/03/24 07/04/24 07/05/24 07/06/24
07:59 07:59 07:59 07:59
Intake Total 480 / 480 600 / 600 720 / 720
Output Total 950 / 950 2850 / 2850 1450 / 1450
Balance -470 / -470 -2250 / -2250 -730 / -730
Physical Exam
Physical Exam
GEN: No distress, awake, alert, oriented x3. Obese. Sitting in chair
HEENT: supple, anicteric, mmm, eomi
LUNGS: Crackles B/L bases, no wheezes
CV: Irreg, S1/S2, 2/6 murmur
ABD: soft, BS+, NT/ND
EXT: No cyanosis, clubbing. trace edema of B/L LE
NEURO: Gross non-focal
SKIN: Warm, pink, dry. No rash
[2024-07-05] MEDS: LASIX 40 MG IV (11:32)
[2024-07-05 11:51] LABS: Glucose - Point of Care 118 mg/dl (70-99)
--- NOTE | 2024-07-05 14:33 | CM ---
MEt with patient who is now off oxygen. He said he hopes to be able to go home without needing home oxygen.
[2024-07-05 16:33] LABS: Glucose - Point of Care 114 mg/dl (70-99)
[2024-07-05 21:26] LABS: Glucose - Point of Care 114 mg/dl (70-99)
[2024-07-05] MEDS: HEPARIN 25000 UNITS/250 ML IV (21:43)
[2024-07-06] VITALS (10 sets, daily range): BP systolic 94–123; BP diastolic 58–84; BMI 35.1
[2024-07-06 04:24] LABS: % Basophils 0.7 % (0-2); % Eosinophils 2.4 % (0-6); % Immature Granulocytes 0.3 % (0-0.5); % Lymphocytes 29.7 % (20.5-51.1); % Monocytes 13.2 % (1.7-9.3); % Neutrophils 53.7 % (42.2-75.2); Absolute Basophils 0.1 10^3/uL (0-0.2); Absolute Eosinophils 0.2 10^3/uL (0-0.7); Absolute Lymphocytes 2.1 10^3/uL (1.2-3.4); Absolute Neutrophils 3.9 10^3/uL (1.4-6.5); Hemoglobin 13.9 g/dL (13.0-18.0); Mean Corp Hgb Conc. 34.8 g/dL (33.0-37.0); Mean Corpuscular Hgb 31.2 pg (27.0-31.0); Mean Corpuscular Volume 89.7 fL (80.0-94.0); Mean Platelet Volume 8.5 fL (7.4-10.4); Nucleated Red Blood Cells % 0 % (-); Platelet Count 258 10^3/uL (130-400); Red Blood Cell Count 4.46 10^6/uL (4.70-6.10); Red Cell Dist. Width 12.4 % (11.5-14.5); White Blood Cell Count 7.2 10^3/uL (4.8-10.8)
[2024-07-06 04:49] LABS: ALT (SGPT) 30 U/L (0-50); AST (SGOT) 32 U/L (17-59); Albumin 3.7 g/dl (3.5-5.0); Alkaline Phosphatase 64 U/L (38-126); Blood Urea Nitrogen 19 mg/dl (9-20); Calcium 9.2 mg/dl (8.4-10.2); Carbon Dioxide 24 mmol/L (22-30); Chloride 98 mmol/L (98-107); Estimated Creatinine Clearance 100 ml/min; Glucose 109 mg/dl (70-99); Magnesium 2.3 mg/dl (1.6-2.3); Potassium 3.8 mmol/L (3.5-5.1); Sodium 137 mmol/L (135-145); Total Protein 6.1 g/dl (6.3-8.2); eGFR > 60.00
[2024-07-06 05:45] LABS: APTT 41.6 Sec (23.4-35.0)
[2024-07-06 07:22] LABS: Glucose - Point of Care 112 mg/dl (70-99)
[2024-07-06] MEDS: NOVOLOG FLEXPEN-LOW RESISTANCE SC ×3 (08:33→17:21)
--- NOTE | 2024-07-06 08:35 | W.PN.UPDATE ---
Update Note
Progress Note Update
Patient seen this AM with Dr. Maldonado. Surgery options were discussed pending findings from [facility] tomorrow. Patient's Ava was in participation via telephone. Due to patient's symptomatic complaints of VALDEZ and short term memory complaints from his
a CTH was ordered. Patient will be transferred to IVU for closer monitoring and continued diureses. Discussed with primary team.
Mari QUINTERO
Cardiac Surgery
[2024-07-06] MEDS: CRESTOR 5 MG PO (08:53)
[2024-07-06] MEDS: ASPIRIN 325 MG PO (08:53)
[2024-07-06] MEDS: PACERONE 400 MG PO ×3 (08:53→22:55)
[2024-07-06] MEDS: ZESTRIL 5 MG PO (08:56)
[2024-07-06] MEDS: LOPRESSOR 25 MG PO ×2 (08:56→20:39)
[2024-07-06] MEDS: KCL 40 MEQ PO (09:03)
[2024-07-06] MEDS: BUMEX 2 MG IV (09:41)
--- NOTE | 2024-07-06 10:11 | W.PN.HOSP.TC ---
Addendum entered and electronically signed by Tyson Yancey MD 07/06/24 12:12:
on hep drip in preparation for procedures
Original Note:
Today's Communication/Plan
-
Patient to IVU in prep for cardiac cath and valve repair
Assessment / Plan
Assessment / Plan
71yo M with PMHx of DM diet controlled, HTN, HLD, anxiety came with 2 weeks of worsening SOB. Noticed gaining 15lbs over past couple of months, found in Afib with RVR and CHF, severe MR with torn chordae, planned for cardiac cath on 07/07/24 for preop
eval. To be managed with Lasix drip in IVU until valve repair
A/P:
#Afib with RVR, new onset
#severe MR with torn chordae
Elqiuis when possible
Echo with severe eccentric MR, DOROTHY on 07/04/24 flail posterior MV leaflet, torn chordae P2
Bcx NTD
CTS eval, planned for CT C/A/P for preop and cardiac cath on 07/07/24, meanwhile planned for possible Lasix drip in IVU
Rate control with BB, avoid Cardizem with acute CHF
Telemetry
#Acute hypoxic insufficiency 2/2 Acute new onset CHF
lasix, daily electrolytes, daily weight, low sodium diet
Cardio consult
#COPD not in exacerbation
cont bronchodilators
#HLD
#essential HT
cont home meds
#DM type 2 with unknown complications
Accuchecks, Insulin SS, DM diet, check HgbA1c
DVT ppx lovenox pending therapeutic AC
Full code
I have spent at least 38min reviewing chart, test results, communication with consultants and direct patient care
Anticipated Discharge: > 48 hours
Subjective/Interval History
-
Date of Service: July 06, 2024
Objective Data
-
Labs:
Laboratory Results
07/06/24 07/06/24 07/06/24
03:56 03:57 05:17
WBC 7.2
Hgb 13.9
Hct 40.0
Plt Count 258
APTT Cancelled 41.6 H
Sodium 137
Potassium 3.8
Chloride 98
Carbon Dioxide 24
BUN 19
Creatinine 0.9
Glucose 109 H
Calcium 9.2
Total Bilirubin 1.0
AST 32
ALT 30
Alkaline Phosphatase 64
07/06/24
12:00
WBC
Hgb
Hct
Plt Count
APTT Pending
Sodium
Potassium
Chloride
Carbon Dioxide
BUN
Creatinine
Glucose
Calcium
Total Bilirubin
AST
ALT
Alkaline Phosphatase
Vital Signs:
Vital Signs
Temp Pulse Resp BP Pulse Ox
98.6 F 70 18 123/75 94
07/06/24 07:55 07/06/24 09:42 07/06/24 07:55 07/06/24 09:42 07/06/24 07:55
I&O
07/05/24 07/06/24 07/07/24
06:59 06:59 06:59
Intake Total 720 / 720 1040 / 1040
Output Total 1450 / 1450 1800 / 1800
Balance -730 / -730 -760 / -760
Review of Systems
-
History Source: Patient
All other systems: Reviewed and negative
Physical Exam
-
General: No Apparent Distress
HEENT: Normocephalic
Respiratory: Clear to Auscultation
Cardiac: Regular Rhythm and Murmur
Musculoskeletal: No Clubbing, No Cyanosis, Edema, Right Lower Extrem and Edema, Left Lower Extrem
Psych: Calm
--- NOTE | 2024-07-06 10:35 | PTCARENOTE ---
Transferred pt to IVU rm 2246. All belongings with patient. Report given to Mohan. Heparin gtt remains at 12ml/hr.
--- NOTE | 2024-07-06 10:50 | W.PN.CARDCBS ---
Today's Communication / Plan
-
Cardiac catheterization on 07/07
DC IV Lasix as likely has reached dry weight
Still with episodes of A-fib and continue amiodarone loading at 400 mg p.o. 3 times daily started on 07/03
Impression / Plan
-
.
PCP: [facility] in [place]
Mri Ct Tech: none, seen initially by Dr Drew
Impression:
Atrial fibrillation-new diagnosis
Acute heart failure-new diagnosis
Severe MR with torn cordae post leaflet.
Small b/l pleural effusions
DM-2, HbA1c 6.
HTN
Hyperlipidemia
ARGENIS on CPAP
COPD
NSVT on telemetry vs aberrancy
Overweight
Daily alcohol
EKG personally reviewed 07/02/24 2356: NSR, iRBBB
EKG personally reviewed 07/02/24 1608:afib with RVR and iRBBB, HR 115
Echo Jul 03 2024: EF 65-70% with severe eccentric MR.
Plan:
He continues to do well.
He may have reached dry weight and we will hold IV Lasix for now
Plan is for cardiac catheterization on 07/07 to assess coronary arteries prior to mitral valve surgery
Timing of surgery is still unclear and will depend on CT surgery input after cardiac catheterization
On IV heparin now with Eliquis being held
Continues with episodes of A-fib and will continue loading with amiodarone for 100 mg p.o. 3 times daily which was started on 07/03
Discussed with nursing
Progress Note - Mri Ct Tech
Subjective
Date of Service: July 06, 2024
No complaints
Objective
Labs:
07/06/24 03:57
07/06/24 03:57
Labs
Hgb 13.9 g/dL (13.0-18.0) 07/06/24 03:57
Hct 40.0 % (39.0-52.0) 07/06/24 03:57
Plt Count 258 10^3/uL (130-400) 07/06/24 03:57
PT 16.9 Sec (11.4-14.6) H 07/05/24 05:27
INR 1.39 07/05/24 05:27
APTT 41.6 Sec (23.4-35.0) H 07/06/24 05:17
Sodium 137 mmol/L (135-145) 07/06/24 03:57
Potassium 3.8 mmol/L (3.5-5.1) 07/06/24 03:57
BUN 19 mg/dl (9-20) 07/06/24 03:57
Creatinine 0.9 mg/dL (0.7-1.3) 07/06/24 03:57
Glucose 109 mg/dl (70-99) H 07/06/24 03:57
Vital Signs and I&O:
Vital Signs
Temp Pulse Resp BP Pulse Ox
98.6 F 70 18 123/75 98
07/06/24 07:55 07/06/24 09:42 07/06/24 07:55 07/06/24 09:42 07/06/24 08:00
Vital Signs
Temp Pulse Resp BP Pulse Ox
98.6 F 70 18 123/75 98
07/06/24 07:55 07/06/24 09:42 07/06/24 07:55 07/06/24 09:42 07/06/24 08:00
Intake & Output
07/04/24 07/05/24 07/06/24 07/07/24
06:59 06:59 06:59 06:59
Intake Total 600 / 600 720 / 720 1040 / 1040
Output Total 2850 / 2850 1450 / 1450 1800 / 1800
Balance -2250 / -2250 -730 / -730 -760 / -760
Physical Exam
Physical Exam
General: Well developed, well nourished in NAD.
Neck: Supple, no JVD, HJR, carotids +2 B/L, no bruits bilaterally.
Heart: Non displaced PMI, RRR, 2/6 apical holosystolic murmur, No S3, S4, no rubs.
Lungs: Scattered rhonchi
Extremities: No clubbing, cyanosis or edema bilaterally.
Neuro: Grossly nonfocal, awake, alert and oriented x3.
[2024-07-06 11:53] LABS: Glucose - Point of Care 130 mg/dl (70-99)
[2024-07-06 12:14] LABS: APTT 58.1 Sec (23.4-35.0)
--- NOTE | 2024-07-06 12:32 | PTCARENOTE ---
Rec'd pt as transfer from 4E. Pt on TELE monitor in Afib with HR in the 70's and VSS. Pt denies any pain or VALDEZ while resting. Pt oriented to room and unit. Pt sitting at bedside with call matos in reach.
[2024-07-06 16:37] LABS: Glucose - Point of Care 103 mg/dl (70-99)
[2024-07-06] MEDS: HEPARIN 25000 UNITS/250 ML IV (18:14)
[2024-07-06 18:39] LABS: APTT 78.9 Sec (23.4-35.0)
[2024-07-06 23:14] LABS: Glucose - Point of Care 109 mg/dl (70-99)
[2024-07-07] VITALS (15 sets, daily range): BP systolic 95–122; BP diastolic 56–81; BMI 35.0
[2024-07-07 02:15] LABS: % Basophils 0.7 % (0-2); % Eosinophils 2.4 % (0-6); % Immature Granulocytes 0.4 % (0-0.5); % Monocytes 13.1 % (1.7-9.3); % Neutrophils 53.4 % (42.2-75.2); Absolute Basophils 0.1 10^3/uL (0-0.2); Absolute Eosinophils 0.2 10^3/uL (0-0.7); Absolute Lymphocytes 2.2 10^3/uL (1.2-3.4); Absolute Monocytes 0.9 10^3/uL (0.1-0.6); Absolute Neutrophils 3.8 10^3/uL (1.4-6.5); Hematocrit 38.3 % (39.0-52.0); Hemoglobin 13.3 g/dL (13.0-18.0); Mean Corp Hgb Conc. 34.7 g/dL (33.0-37.0); Mean Corpuscular Hgb 31.1 pg (27.0-31.0); Mean Corpuscular Volume 89.5 fL (80.0-94.0); Mean Platelet Volume 8.4 fL (7.4-10.4); Nucleated Red Blood Cells % 0 % (-); Platelet Count 239 10^3/uL (130-400); Red Blood Cell Count 4.28 10^6/uL (4.70-6.10); Red Cell Dist. Width 12.5 % (11.5-14.5); White Blood Cell Count 7.2 10^3/uL (4.8-10.8)
[2024-07-07 02:27] LABS: APTT 80.4 Sec (23.4-35.0)
[2024-07-07 02:40] LABS: ALT (SGPT) 28 U/L (0-50); AST (SGOT) 32 U/L (17-59); Albumin 3.7 g/dl (3.5-5.0); Alkaline Phosphatase 59 U/L (38-126); Blood Urea Nitrogen 21 mg/dl (9-20); Calcium 9.1 mg/dl (8.4-10.2); Carbon Dioxide 22 mmol/L (22-30); Chloride 101 mmol/L (98-107); Estimated Creatinine Clearance 100 ml/min; Glucose 106 mg/dl (70-99); Magnesium 2.3 mg/dl (1.6-2.3); Phosphorus 4.2 mg/dl (2.5-4.5); Sodium 137 mmol/L (135-145); Total Bilirubin 0.8 mg/dl (0.2-1.3); eGFR > 60.00
[2024-07-07 02:47] LABS: NT-proBNP 279 pg/ml
--- NOTE | 2024-07-07 03:21 | PTCARENOTE ---
Pt. received at change of shift. VSS, flipping between NSR and Afib on tele with HR 60s-80s. Pt. endorses SOB when ambulating to the bathroom and also a dry cough. Lungs sound clear and sats 95% on RA. No complaints of pain at this time.
Heparin gtt currently infusing at 14ml/hr. Ambulating independently, gait steady. Plan of care discussed and pt. verbalizes understanding. NPO since midnight for cardiac cath in AM. Can make needs known. Call matos within reach.
--- NOTE | 2024-07-07 07:00 | PTCARENOTE ---
report received at change of shift. Pt AAOX3. denies pain, resting comfortably. Afib on telemetry heart rate 60-80s. pulses palpable. no edema. pt on room air, sat 95%. lung sounds diminished in bases. active bowel sounds, NPO for cath. voiding in
bathroom no difficulty. see worklist for full nursing assessment and interventions.
[2024-07-07 07:15] LABS: Glucose - Point of Care 125 mg/dl (70-99)
[2024-07-07] MEDS: NOVOLOG FLEXPEN-LOW RESISTANCE SC ×3 (07:21→18:27)
[2024-07-07] MEDS: ASPIRIN 325 MG PO (08:36)
[2024-07-07] MEDS: PACERONE 400 MG PO ×3 (08:37→22:14)
[2024-07-07] MEDS: CRESTOR 5 MG PO (08:40)
--- NOTE | 2024-07-07 09:06 | W.PN.HOSP.TC ---
Today's Communication/Plan
-
For cardiac catheterization today
Assessment / Plan
Assessment / Plan
71yo M with PMHx of DM diet controlled, HTN, HLD, anxiety came with 2 weeks of worsening SOB. Noticed gaining 15lbs over past couple of months, found in Afib with RVR and CHF, severe MR with torn chordae, planned for cardiac cath on 07/07/24 for preop
eval. To be managed with Lasix drip in IVU until valve repair
A/P:
#Afib with RVR, new onset
#Severe MR with torn chordae
Eliquis held
Echo with severe eccentric MR, DOROTHY on 07/04/24 flail posterior MV leaflet, torn chordae P2
Appreciate CTS, planned for cardiac cath on 07/07/24
Appreciate cardiology input, rate control with BB & amiodarone, avoid Cardizem with acute CHF
#Acute hypoxic insufficiency 2/2 Acute new onset CHF
S/p IV lasix
#COPD not in exacerbation
Continue bronchodilators
#HLD
#Essential HTN
Continue statin, lisinopril
#DM type 2 with unknown complications
Accuchecks, Insulin SS, DM diet, check HgbA1c
DVT ppx -hold eliquis
Full code
Updated at bedside 07/07
Total time spent to see the patient on the floor, examine the patient, review data and lab results, discuss treatment plan with patient, nursing staff around 36 minutes.
Physical Exam
General: Obese, no acute distress
HEENT: Normocephalic, Atraumatic, EOMI, MMM
Respiratory: Clear to Auscultation bilaterally
Cardiac: Normal S1/S2, Regular Rate and Rhythm
GI: Soft, Nontender, Nondistended, Normal Bowel Sounds
Extremities: No Clubbing, Cyanosis
Neuro: Nonfocal/Grossly Intact
Psych: Calm, Cooperative
Derm: No Visible lesions
Anticipated Discharge: > 48 hours
Subjective/Interval History
-
Date of Service: July 07, 2024
Patient continues to have dyspnea with activity. He also reports a cough. No shortness of breath at rest. No nausea, no vomiting. No fever.
Objective Data
-
Labs:
Laboratory Results
07/07/24
02:05
WBC 7.2
Hgb 13.3
Hct 38.3 L
Plt Count 239
APTT 80.4 H
Sodium 137
Potassium 4.0
Chloride 101
Carbon Dioxide 22
BUN 21 H
Creatinine 0.9
Glucose 106 H
Calcium 9.1
Total Bilirubin 0.8
AST 32
ALT 28
Alkaline Phosphatase 59
Vital Signs:
Vital Signs
Temp Pulse Resp BP Pulse Ox
97.9 F 76 20 109/66 92
07/07/24 07:33 07/07/24 08:39 07/07/24 07:33 07/07/24 08:39 07/07/24 07:36
I&O
07/06/24 07/07/24 07/08/24
06:59 06:59 06:59
Intake Total 1040 / 1040 168 / 168
Output Total 1800 / 1800 1225 / 1225
Balance -760 / -760 -1057 / -1057
[2024-07-07] MEDS: LOPRESSOR 25 MG PO ×2 (09:23→19:39)
[2024-07-07] MEDS: HEPARIN 25000 UNITS/250 ML IV ×2 (13:30→22:15)
[2024-07-07 13:39] LABS: Glucose - Point of Care 114 mg/dl (70-99)
[2024-07-07] MEDS: ZESTRIL PO (15:05)
--- NOTE | 2024-07-07 16:27 | CM ---
spoke with pt and in room. pt lost his insurance in May and did not sign up for cobra that was offered. he is awaiting new insurance that is sched to start jul 29. they are aware that the new insurance will not cover this admission. pt is in
the process of getting cobra reinstated retroactively.
plan is for CT consult for poss MVR. cm following.
asked to vargas jannyquis- can not complete until pts cobra is reinstated and pt has perscrip plan.
--- NOTE | 2024-07-07 17:41 | ITS.CL.CATH ---
Circuit Design Engineer - Catheterization
Cardiac Catheterization
Procedure Report:
RIGHT AND LEFT HEART STUDY
Date of Procedure: July 07, 2024
Referring: Dr. Jake Drew
PROCEDURES:
1. Right heart catheterization
2. Left heart catheterization with coronary and single-plane left ventriculography
INDICATION: This is a 64-year-old gentleman who was admitted to [facility] following the abrupt onset of severe shortness of breath and new onset atrial fibrillation. He was found to have severe mitral regurgitation secondary to a partial
flail posterior mitral leaflet. He was seen by CT surgery for evaluation of mitral valve repair/replacement and is referred now for coronary angiography and right heart catheterization preoperatively
ACCESS: Right radial artery, 6 Maori sheath in right common femoral vein, 6 Maori sheath
HEMODYNAMICS : mmHg
RA (m) : 17
RV (s/d) : 41/7
PA (s/d, m) : 38/24, 26
PCWP (m) : 26
AO (s/d, m) : 100/73
LV (s/d) : 103/14
LVEDP : 20
Estimated Zach Cardiac Output: 4.6 L / min and Cardiac Index: 2.1 L/ min / m-2
CORONARY FINDINGS :
Dominance: Right
LEFT MAIN: Normal
LEFT ANTERIOR DESCENDING: The LAD arises normally from the left main and runs in the anterior interventricular groove. There is a hazy irregular 70% mid LAD stenosis involving the origin of a moderate caliber diagonal branch. The remainder of the
LAD has minor irregularities.
CIRCUMFLEX: The circumflex is a medium caliber nondominant vessel giving rise to a small OM1. The AV continuation of the circumflex gives rise to a moderate size OM 2 that has a 40% proximal stenosis and the circumflex terminates in a sizable
posterolateral branch
RIGHT CORONARY ARTERY: The right coronary artery is a medium caliber dominant vessel with a 30% proximal stenosis and luminal irregularities throughout the remainder of the vessel.
VENTRICULOGRAPHY: Left ventriculography was performed in an MELENDREZ projection. The digital single-plane left ventricular ejection fraction is estimated at 60% feeling a dilated left atrium with +4 mitral regurgitation. No significant aortic valve
gradient was noted
RADIATION SUMMARY: Fluoro Time (min): 5.0, Dose (mGy): 1077, DAP (Gy.cm2) : 81.5
CONCLUSIONS
1. Elevated left ventricular filling pressures with severe mitral regurgitation
2. Preserved left ventricular systolic function
3. Coronary artery disease involving mid LAD and diagonal branch
RECOMMENDATIONS
1. Coronary angiograms will be reviewed by Dr. Maldonado
2. Continue IV diuresis
Copy to: Dr. Jake Drew
--- NOTE | 2024-07-07 18:05 | PTCARENOTE ---
received patient back from analyst microbiology lab. right radial TR band intact, pulse palpable. right venous femoral cath site CDI. dp pulse palpable. A fib on telemetry heart rate 70s. pt resting comfortably, denies pain. tolerated water without difficulty.
educated on restrictions with right arm and to lay flat for 2 hours.
[2024-07-07] MEDS: NSS 1000 IV (18:20)
[2024-07-07 18:27] LABS: Glucose - Point of Care 103 mg/dl (70-99)
--- NOTE | 2024-07-07 20:00 | PTCARENOTE ---
Received pt from [facility]. pt resting comfortably in bed. pt is s/p heart cancerization and has reach expected ambulation time with RN assistance. Currently pt is siting up in bed, pt is instructed to call RN before getting up. pt is AAOx4, denies
pain. Afib on monitor. VSS. heart sounds audible, radial and DP pulses palpable, no edema noted. lungs CTA, spo2 95% on RA. + BS x4 quadrants, abdomen round/obese, soft non tender. pt voiding clear yellow urine. right radial TR bad in place,
deflation in process per orders, right femoral groin site dressing clean, dry, and intact, right upper arm ecchymotic. PIV maintained. heparin gtt ordered to resume at 2200. pt is scheduled for CT surgery later in the week. call matos within reach.
will continue to monitor.
[2024-07-07 22:01] LABS: Glucose - Point of Care 138 mg/dl (70-99)
[2024-07-08] VITALS (9 sets, daily range): BP systolic 101–123; BP diastolic 60–83; BMI 35.0
--- NOTE | 2024-07-08 | PTCARENOTE ---
Pt assessment unchanged. SB on monitor. VSS. pt resting comfortably in bed. right radial TR band removed bt 2200, no bleeding, palpable radial pulse. right femoral cath dressing CDI, palpable DP pulse. Heparin restarted per orders. PTT to be checked
at 0400. call matos within reach. will continue to monitor.
[2024-07-08 03:00] LABS: Hematocrit 35.8 % (39.0-52.0); Hemoglobin 12.6 g/dL (13.0-18.0); Mean Corp Hgb Conc. 35.2 g/dL (33.0-37.0); Mean Corpuscular Hgb 30.6 pg (27.0-31.0); Mean Corpuscular Volume 86.9 fL (80.0-94.0); Mean Platelet Volume 8.7 fL (7.4-10.4); Platelet Count 276 10^3/uL (130-400); Red Blood Cell Count 4.12 10^6/uL (4.70-6.10); Red Cell Dist. Width 12.7 % (11.5-14.5); White Blood Cell Count 7.2 10^3/uL (4.8-10.8)
[2024-07-08 03:06] LABS: APTT 73.4 Sec (23.4-35.0)
[2024-07-08 03:14] LABS: Blood Urea Nitrogen 21 mg/dl (9-20); Calcium 8.8 mg/dl (8.4-10.2); Carbon Dioxide 24 mmol/L (22-30); Chloride 104 mmol/L (98-107); Estimated Creatinine Clearance 90 ml/min; Glucose 111 mg/dl (70-99); Potassium 4.1 mmol/L (3.5-5.1); Sodium 136 mmol/L (135-145); eGFR > 60.00
--- NOTE | 2024-07-08 04:00 | PTCARENOTE ---
Pt assessment unchanged. NSR on monitor. VSS. pt resting comfortably in bed. right radial and right femoral cath dressing CDI, palpable radial and DP pulse. Heparin infusing. PTT lab drawn, no changed to gtt, see worklist. call matos within reach.
will continue to monitor.
--- NOTE | 2024-07-08 04:59 | W.PN.CT ---
Addendum entered and electronically signed by Javier Maldonado MD 07/09/24 14:04:
I saw and examined the patient.
The PA's note was reviewed and I agree with the note.
Comment:
I reviewed MR. Guerrero's [facility] findings with him. Planning for surgery on Sunday as Sternotomy, MV repair, MAZE, ANANT Clip, CABG x (NIEVES-LAD and RSVG-Diagonal).
Original Note:
Today's Communication / Plan
-
Plan:
-Cont. current medical management per primary team
-Cont. current meds (ASA, Heparin gtt, Crestor, Lopressor, Lasix prn; will place Lisinopril on future hold)
-Cont. to hold Eliquis in preparation for OR
-Cont. heparin gtt, will d/c director translation to OR
-Will place Lisinopril on future hold, hold 48hrs prior to OR
-Ongoing preop workup
-For MV repair/replacement/MAZE/ELAA/+/- CABG by Dr. Maldonado on Wednesday 07/11
-Will cont. to closely monitor
Assessment / Plan
-
Assessment:
-Severe eccentric MR (torn chordae @ P2)
-LVEF 60-65% per DOROTHY 07/04/24
-Moderate dilated left atrium
-Single vessel CAD (70% mid/origin of diag) per cath 07/07/24
-New onset Atrial fibrillation (was on Eliquis, transitioned to heparin gtt)
-Acute Diastolic CHF
-Small b/l pleural effusion with adjacent atelectasis
-HTN
-HLD
-T2DM (hgb A1C 6.0, diet controlled)
-Class 2 obesity (BMI 35.2)
-ARGENIS (uses CPAP)
-COPD (pt denies)
-B/L knee arthroscopy
-S/p Cholecystectomy
Discussed patient care with: Cardiology, Nursing, Respiratory Therapy, Pharmacy and Care Team
Subjective
-
Date of Service: July 08, 2024
Pt c/o mild SOB overnight, denies CP
Objective Data
-
Lab Results
07/08/24 02:32
07/08/24 02:32
PT 16.9 Sec (11.4-14.6) H 07/05/24 05:27
INR 1.39 07/05/24 05:27
APTT 73.4 Sec (23.4-35.0) H 07/08/24 02:32
Vital Signs
Vital Signs
Temp Pulse Resp BP Pulse Ox
98.1 F 62 20 121/77 97
07/08/24 02:38 07/08/24 02:38 07/08/24 00:01 07/08/24 02:38 07/08/24 02:38
CT Intake/Output/Weight
07/07/24 07/07/24 07/08/24
06:59 18:59 06:59
Output Total 625 / 1225 350 / 350
Balance -625 / -1057 -350 / -350
SaO2: 97 (2L)
Physical Exam
-
General: Awake, Oriented and AOx3
Cardiovascular: Regular rate & rhythm, Murmur (3/6 sytolic ), No Rub and No Gallop
Respiratory: Decreased Breath Sounds (at bases, otherwise clear)
Incision: Clean, Dry, Intact and Dressing Intact
Extremities: No Edema
Data Reviewed
-
Lab Results: Results Reviewed
Medications: Active Meds Reviewed
Chest X-Ray: Report Reviewed and Image Reviewed
ECG: Report Reviewed and Image Reviewed
[2024-07-08] MEDS: NOVOLOG FLEXPEN-LOW RESISTANCE SC ×3 (07:55→18:34)
[2024-07-08 07:56] LABS: Glucose - Point of Care 124 mg/dl (70-99)
[2024-07-08] MEDS: PACERONE 400 MG PO (07:56)
[2024-07-08] MEDS: ZESTRIL 5 MG PO (07:56)
[2024-07-08] MEDS: CRESTOR 5 MG PO (07:56)
[2024-07-08] MEDS: LOPRESSOR 25 MG PO ×2 (07:56→19:24)
[2024-07-08] MEDS: ASPIRIN 325 MG PO (07:56)
--- NOTE | 2024-07-08 08:44 | W.PN.CARDCBS ---
Addendum entered and electronically signed by Marc Mares MD 07/08/24 10:09:
I saw and examined the patient.
The ART COORDINATOR or PA's note was reviewed and I agree with the note.
Comment: General: Well developed, well nourished in NAD.
Neck: Supple, no JVD, HJR, carotids +2 B/L, no bruits bilaterally.
Heart: Non displaced PMI, RRR, no murmurs, No S3, S4, no rubs.
Lungs: Scattered rhonchi at the bases
Extremities: No clubbing, cyanosis or edema bilaterally.
Neuro: Grossly nonfocal, awake, alert and oriented x3.
Will continue diuresis with IV Lasix based on elevated filling pressures at the time of catheterization on 07/08/2024. For mitral valve repair on Wednesday 07/11
Original Note:
Today's Communication / Plan
-
IV lasix
continue asa, IV heparin, lopressor
decrease amiodarone to 200mg BID. follow QTc
planned for CT surgery Sunday
Impression / Plan
-
.
PCP: [facility] in [place]
Editorial Assistant: none, seen initially by Dr Drew
Impression:
Atrial fibrillation-new diagnosis
Acute heart failure-new diagnosis
Severe MR with torn cordae post leaflet.
Small b/l pleural effusions
Mid LAD stenosis involving diagonal branch by cath 07/07/24
DM-2, HbA1c 6.
HTN
Hyperlipidemia
ARGENIS on CPAP
COPD
NSVT on telemetry vs aberrancy
Overweight
Daily alcohol
EKG personally reviewed 07/02/24 2356: NSR, iRBBB
EKG personally reviewed 07/02/24 1608:afib with RVR and iRBBB, HR 115
Echo Jul 03 2024: EF 65-70% with severe eccentric MR.
Plan:
-reports some orthopnea last evening around 3:30AM, improved with sitting up. his lasix had been stopped due to reaching dry weight, will restart with this episode. Cr stable at 1.0
-cath 07/07 with mid LAD stenosis involving diagonal branch. planned for MV repair/replacement/MAZE/ELAA/+/- CABG by Dr. Maldonado on Wednesday 07/11. continue preop work up
-continue asa, IV heparin, lopressor. lisinopril on future hold
-eventual OAC for PAF post operatively. currently in SR on review of tele, however with several paroxysms of afib noted. also with several 3-4 beat runs of NSVT vs aberrancy. continue amio, with sufficient load, will reduce dose to 200mg BID today.
repeat EKG today to reassess QTc
-Discussed with nursing
Progress Note - Editorial Assistant
Subjective
Date of Service: July 08, 2024
reports orthopnea, SOB overnight
Objective
Labs:
07/08/24 02:32
07/08/24 02:32
Labs
Hgb 12.6 g/dL (13.0-18.0) L 07/08/24 02:32
Hct 35.8 % (39.0-52.0) L 07/08/24 02:32
Plt Count 276 10^3/uL (130-400) 07/08/24 02:32
PT 16.9 Sec (11.4-14.6) H 07/05/24 05:27
INR 1.39 07/05/24 05:27
APTT 73.4 Sec (23.4-35.0) H 07/08/24 02:32
Sodium 136 mmol/L (135-145) 07/08/24 02:32
Potassium 4.1 mmol/L (3.5-5.1) 07/08/24 02:32
BUN 21 mg/dl (9-20) H 07/08/24 02:32
Creatinine 1.0 mg/dL (0.7-1.3) 07/08/24 02:32
Glucose 111 mg/dl (70-99) H 07/08/24 02:32
Vital Signs and I&O:
Vital Signs
Temp Pulse Resp BP Pulse Ox
98.1 F 63 22 115/71 97
07/08/24 07:43 07/08/24 07:43 07/08/24 07:43 07/08/24 07:43 07/08/24 07:43
Vital Signs
Temp Pulse Resp BP Pulse Ox
98.1 F 63 22 115/71 97
07/08/24 07:43 07/08/24 07:43 07/08/24 07:43 07/08/24 07:43 07/08/24 07:43
Intake & Output
07/06/24 07/07/24 07/08/24 07/09/24
07:59 07:59 07:59 07:59
Intake Total 1040 / 1040 168 / 168
Output Total 1800 / 1800 1225 / 1225 350 / 350 425 / 425
Balance -760 / -760 -1057 / -1057 -350 / -350 -425 / -425
Physical Exam
Physical Exam
GEN: No distress, awake, alert, oriented x3
HEENT: supple, anicteric, mmm, eomi
LUNGS: Few crackles B/L bases, no wheezes
CV: Reg, S1/S2, 2/6 murmur
ABD: soft, BS+, NT/ND
EXT: No cyanosis, clubbing. Trace edema of B/L LE
NEURO: Gross non-focal
SKIN: Warm, pink, dry. No rash
--- NOTE | 2024-07-08 09:23 | W.PN.HOSP.TC ---
Today's Communication/Plan
-
see bold
Assessment / Plan
Assessment / Plan
71yo M with PMHx of DM diet controlled, HTN, HLD, anxiety came with 2 weeks of worsening SOB. Noticed gaining 15lbs over past couple of months, found in Afib with RVR and CHF, severe MR with torn chordae, planned for cardiac cath on 07/07/24 for preop
eval. To be managed with Lasix drip in IVU until valve repair
A/P:
#Afib with RVR, new onset
#Severe MR with torn chordae
Heparin drip, hold eliquis
Echo with severe eccentric MR, DOROTHY on 07/04/24 flail posterior MV leaflet, torn chordae P2
Appreciate CTS, cardiac cath on 07/07/24 shows elevated filling pressure
Appreciate cardiology input, rate control with BB & amiodarone, avoid Cardizem with acute CHF
For mitral valve repair on Wednesday 07/11
#Acute hypoxic insufficiency 2/2 Acute new onset CHF
Back on IV Lasix
#COPD not in exacerbation
Continue bronchodilators
#HLD
#Essential HTN
Continue statin, lisinopril
#DM type 2 with unknown complications
Accuchecks, Insulin SS, DM diet, HgbA1c 6
DVT ppx -heparin drip, hold eliquis
Full code
Updated at bedside 07/07
Total time spent to see the patient on the floor, examine the patient, review data and lab results, discuss treatment plan with patient, nursing staff around 37 minutes.
Physical Exam
General: Obese, no acute distress
HEENT: Normocephalic, Atraumatic, EOMI, MMM
Respiratory: Clear to Auscultation bilaterally
Cardiac: Normal S1/S2, Regular Rate and Rhythm
GI: Soft, Nontender, Nondistended, Normal Bowel Sounds
Extremities: No Clubbing, Cyanosis
Neuro: Nonfocal/Grossly Intact
Psych: Calm, Cooperative
Derm: No Visible lesions
Anticipated Discharge: > 48 hours
Subjective/Interval History
-
Date of Service: July 08, 2024
Patient had a tough night, was unable to sleep, reports dyspnea with activity. No fever, no vomiting.
Objective Data
-
Labs:
Laboratory Results
07/08/24 07/08/24
02:32 08:25
WBC 7.2
Hgb 12.6 L
Hct 35.8 L
Plt Count 276
APTT 73.4 H Pending
Sodium 136
Potassium 4.1
Chloride 104
Carbon Dioxide 24
BUN 21 H
Creatinine 1.0
Glucose 111 H
Calcium 8.8
Vital Signs:
Vital Signs
Temp Pulse Resp BP Pulse Ox
98.1 F 63 22 115/71 97
07/08/24 07:43 07/08/24 07:43 07/08/24 07:43 07/08/24 07:43 07/08/24 07:43
I&O
07/07/24 07/08/24 07/09/24
06:59 06:59 06:59
Intake Total 168 / 168
Output Total 1225 / 1225 350 / 350 425 / 425
Balance -1057 / -1057 -350 / -350 -425 / -425
[2024-07-08] MEDS: LASIX 40 MG IV ×2 (09:52→22:45)
--- NOTE | 2024-07-08 10:20 | W.PN.UPDATE ---
Update Note
Progress Note Update
�[email or web address]
Procedure Type:�CABG + MVr
PERIOPERATIVE OUTCOME ESTIMATE %
Operative Mortality 1.24%
Morbidity & Mortality 11.2%
Stroke 1.43%
Renal Failure 2.05%
Reoperation 3%
Prolonged Ventilation 6.63%
Deep Sternal Wound Infection 0.993%
Long Hospital Stay (>14 days) 9.72%
Short Hospital Stay (<6 days)* 22.9%
*higher values reflect a better outcome
Clinical Summary
Planned Surgery: CABG + MVr, Urgent, First cardiovascular surgery
Demographics: 64 year old, White, male, 104kg, 173cm, BMI: 34.8 kg/m�
Insurance/Payor: Medicaid
Lab Values: Creatinine: 1 mg/dL, Hematocrit: 35.8%, WBC Count: 7.2 10�/�L, Platelet Count: 065621 cells/�L
Substance Abuse: Never smoker
Risk Factors / Comorbidities: Diabetes Mellitus , Hypertension
Pulmonary RF: Sleep Apnea
Cardiac Status: Acute heart failure, Ejection Fraction = 60%
Coronary Artery Disease: 1 vessel diseased, Proximal LAD Stenosis >=70%, Stable Angina
Valve Disease: Severe MR, Trivial/Trace TR
Arrhythmia: Recent A-fib, Paroxysmal
[2024-07-08] MEDS: HEPARIN 25000 UNITS/250 ML IV (13:39)
--- NOTE | 2024-07-08 16:15 | PTCARENOTE ---
No acute changes. NSR with pac's. Room air. Mildly short of breath with exertion minimal. PTT was 84.7 (therapeutic) Heparin gtt remains at 1500 units/hr.
[2024-07-08 16:38] LABS: APTT 84.7 Sec (23.4-35.0)
[2024-07-08] MEDS: PACERONE 200 MG PO (19:24)
[2024-07-08 22:08] LABS: Glucose - Point of Care 123 mg/dl (70-99)
[2024-07-08 22:34] LABS: APTT 103.3 Sec (23.4-35.0)
--- NOTE | 2024-07-08 22:49 | W.PN.UPDATE ---
Update Note
Progress Note Update
-at 10:40 pm came in to evaluate pt for SOB. There is no distress, but looks slightly SOB with conversation, + JVD, crackles at the bases b/l, no wheeze, trace ankle edema. Denies any CP. pOx 95% on RA and 98% on 2L. Pt got iv Lasix in am and
diuresed over 1 L. Noted elevated PCWP 26, LVEDP 20, severe MR, EF 60% by Cath on 07/07. Pt is in and out of a-fib 60-70s, BP 123/74.
-will give 40 iv Lasix now
-follow-up CXR in am. BMP/Mg in am
-renewed iv Heparin
-discussed plan with pt, his and nursing
--- NOTE | 2024-07-08 23:03 | PTCARENOTE ---
Pt c/o SOB and 'wheezing'. Upon auscultation pt w/ b/l crackles in the bases. No wheezing noted at this time. Sating 95% RA, applied 2L of O2 for comfort. Pt currently sating 98% on 2L of O2. Has an occasional CARAMEL MAKER dry cough. Eli MCDONALD
made aware, and at bedside. Orders obtained/carried out for STAT IV Lasix 40mg. Med administered at 22:45. Pts spouse Ava on the phone and aware of POC. Pt voids in urinal. Staff monitoring intake and output. Tele monitor shows SR w/ occasional
PACs and intermittently flips in and out of Afib. Eli MCDONALD aware. Rate controlled, in the 60-90's. IV Heparin gtt infusing at 15ml/hr. Call matos within reach.
[2024-07-09] VITALS (8 sets, daily range): BP systolic 98–138; BP diastolic 57–82; BMI 34.5
[2024-07-09 04:44] LABS: APTT 106.8 Sec (23.4-35.0)
[2024-07-09 04:55] LABS: Blood Urea Nitrogen 15 mg/dl (9-20); Calcium 8.9 mg/dl (8.4-10.2); Carbon Dioxide 25 mmol/L (22-30); Chloride 103 mmol/L (98-107); Estimated Creatinine Clearance 99 ml/min; Glucose 117 mg/dl (70-99); Magnesium 2.2 mg/dl (1.6-2.3); Potassium 3.7 mmol/L (3.5-5.1); Sodium 136 mmol/L (135-145); eGFR > 60.00
[2024-07-09] MEDS: KCL 40 MEQ PO (06:11)
[2024-07-09] MEDS: NOVOLOG FLEXPEN-LOW RESISTANCE SC ×3 (06:45→17:27)
[2024-07-09] MEDS: HEPARIN 25000 UNITS/250 ML IV (07:08)
[2024-07-09 07:59] LABS: Glucose - Point of Care 215 mg/dl (70-99)
[2024-07-09] MEDS: CRESTOR 5 MG PO (08:04)
[2024-07-09] MEDS: LOW STRENGTH ASPIRIN 81 MG PO (08:06)
[2024-07-09] MEDS: LOPRESSOR 25 MG PO ×2 (08:06→20:31)
[2024-07-09] MEDS: PACERONE 200 MG PO ×2 (08:06→20:31)
[2024-07-09] MEDS: LASIX 40 MG IV ×2 (08:06→15:54)
[2024-07-09] MEDS: FLUSH (NSS) 2 FLUSH IV (08:07)
--- NOTE | 2024-07-09 08:47 | W.PN.HOSP.TC ---
Today's Communication/Plan
-
see bold
Assessment / Plan
Assessment / Plan
71yo M with PMHx of DM diet controlled, HTN, HLD, anxiety came with 2 weeks of worsening SOB. Noticed gaining 15lbs over past couple of months, found in Afib with RVR and CHF, severe MR with torn chordae, planned for cardiac cath on 07/07/24 for preop
eval. To be managed with Lasix drip in IVU until valve repair
A/P:
#Afib with RVR, new onset
#Severe MR with torn chordae
Heparin drip, hold eliquis
Echo with severe eccentric MR, DOROTHY on 07/04/24 flail posterior MV leaflet, torn chordae P2
Appreciate CTS, cardiac cath on 07/07/24 shows elevated filling pressure
Appreciate cardiology input, rate control with BB & amiodarone, avoid Cardizem with acute CHF
For mitral valve repair on Wednesday 07/11
#Acute hypoxic insufficiency 2/2 Acute new onset CHF
Back on IV Lasix
#COPD not in exacerbation
Continue bronchodilators
#HLD
#Essential HTN
Continue statin, hold lisinopril for surg
#DM type 2 with unknown complications
Accuchecks, Insulin SS, DM diet, HgbA1c 6
DVT ppx -heparin drip, hold eliquis
Full code
Updated at bedside 07/07
Total time spent to see the patient on the floor, examine the patient, review data and lab results, discuss treatment plan with patient, nursing staff around 35 minutes.
Physical Exam
General: Obese, no acute distress
HEENT: Normocephalic, Atraumatic, EOMI, MMM
Respiratory: Clear to Auscultation bilaterally
Cardiac: Normal S1/S2, Regular Rate and Rhythm
GI: Soft, Nontender, Nondistended, Normal Bowel Sounds
Extremities: No Clubbing, Cyanosis
Neuro: Nonfocal/Grossly Intact
Psych: Calm, Cooperative
Derm: No Visible lesions
Anticipated Discharge: > 48 hours
Subjective/Interval History
-
Date of Service: July 09, 2024
Patient reports sleeping better. Dyspnea with activity improved on IV Lasix. No fever, no vomiting.
Objective Data
-
Labs:
Laboratory Results
07/08/24 07/09/24
22:14 04:07
APTT 103.3 H 106.8 H
Sodium 136
Potassium 3.7
Chloride 103
Carbon Dioxide 25
BUN 15
Creatinine 0.9
Glucose 117 H
Calcium 8.9
Vital Signs:
Vital Signs
Temp Pulse Resp BP Pulse Ox
97.6 F 63 16 102/65 95
07/09/24 07:55 07/09/24 07:55 07/09/24 07:55 07/09/24 03:59 07/09/24 07:55
I&O
07/08/24 07/09/24 07/10/24
06:59 06:59 06:59
Intake Total 1300 / 1300
Output Total 350 / 350 2975 / 2975
Balance -350 / -350 -1675 / -1675
--- NOTE | 2024-07-09 08:52 | W.PN.CARDCBS ---
Addendum entered and electronically signed by Jake Drew DO 07/09/24 09:55:
I saw and examined the patient.
The Cardiovascular Technologist's note was reviewed and I agree with the note.
Comment:
Plan:
Increase IV lasix given symptomatic HF
Is and Os negative
Plan for MV repair +/- CABG and consider MAZE Jul 11.
Cont Amiodarone and lopressor. Sinus with prior PAFib
IV heparin with eventual transition to oral anticoagulation post op
Pt was appreciative.
Original Note:
Today's Communication / Plan
-
increase IV lasix
continue asa, IV heparin, lopressor, crestor, amio
for surgery Wednesday 07/11
Impression / Plan
-
.
PCP: [facility] [place]
Secondary School Principal: none, seen initially by Dr Drew
Impression:
Atrial fibrillation-new diagnosis
Acute heart failure-new diagnosis
Severe MR with torn cordae post leaflet.
Small b/l pleural effusions
Mid LAD stenosis involving diagonal branch by cath 07/07/24
DM-2, HbA1c 6.
HTN
Hyperlipidemia
ARGENIS on CPAP
COPD
NSVT on telemetry vs aberrancy
Overweight
Daily alcohol
EKG personally reviewed 07/02/24 2356: NSR, iRBBB
EKG personally reviewed 07/02/24 1608:afib with RVR and iRBBB, HR 115
Echo Jul 03 2024: EF 65-70% with severe eccentric MR.
Plan:
-he had SOB overnight again requiring additional dose of IV lasix with improvement in breathing. will increase IV lasix dose from 40mg daily to BID to attempt to maintain euvolemic status. Cr stable
-cath 07/07 with mid LAD stenosis involving diagonal branch. planned for MV repair/replacement/MAZE/ELAA/+/- CABG by Dr. Maldonado on Wednesday 07/11.
-continue asa, IV heparin, lopressor. lisinopril now on hold
-currently in rate controlled afib on review of tele. eventual OAC for PAF post operatively. currently in SR on review of tele, however with several paroxysms of afib noted. also with several 3 beat runs of NSVT vs aberrancy. continue amio, with
sufficient load, now on 200mg BID. follow QTc
-LDL 73. continue crestor
Progress Note - Secondary School Principal
Subjective
Date of Service: July 09, 2024
denies CP, current SOB, LE edema
Objective
Labs:
07/08/24 02:32
07/09/24 04:07
Labs
Hgb 12.6 g/dL (13.0-18.0) L 07/08/24 02:32
Hct 35.8 % (39.0-52.0) L 07/08/24 02:32
Plt Count 276 10^3/uL (130-400) 07/08/24 02:32
PT 16.9 Sec (11.4-14.6) H 07/05/24 05:27
INR 1.39 07/05/24 05:27
APTT 106.8 Sec (23.4-35.0) H 07/09/24 04:07
Sodium 136 mmol/L (135-145) 07/09/24 04:07
Potassium 3.7 mmol/L (3.5-5.1) 07/09/24 04:07
BUN 15 mg/dl (9-20) 07/09/24 04:07
Creatinine 0.9 mg/dL (0.7-1.3) 07/09/24 04:07
Glucose 117 mg/dl (70-99) H 07/09/24 04:07
Vital Signs and I&O:
Vital Signs
Temp Pulse Resp BP Pulse Ox
97.6 F 63 16 102/65 95
07/09/24 07:55 07/09/24 07:55 07/09/24 07:55 07/09/24 03:59 07/09/24 07:55
Vital Signs
Temp Pulse Resp BP Pulse Ox
97.6 F 63 16 102/65 95
07/09/24 07:55 07/09/24 07:55 07/09/24 07:55 07/09/24 03:59 07/09/24 07:55
Intake & Output
07/07/24 07/08/24 07/09/24 07/10/24
07:59 07:59 07:59 07:59
Intake Total 168 / 168 1300 / 1300
Output Total 1225 / 1225 350 / 350 2975 / 2975
Balance -1057 / -1057 -350 / -350 -1675 / -1675
Physical Exam
Physical Exam
GEN: No distress, awake, alert, oriented x3
HEENT: supple, anicteric, mmm, eomi
LUNGS: CTA B/L, no wheezes
CV: Reg, S1/S2, 2/6 murmur
ABD: soft, BS+, NT/ND
EXT: No cyanosis, clubbing, edema
NEURO: Gross non-focal
SKIN: Warm, pink, dry. No rash
--- NOTE | 2024-07-09 09:22 | PTCARENOTE ---
Received patient this morning resting in bed, IV heparin infusing at 1500 units/hr, PTT at therapeutic range. Accu check completed after patient had eaten a full breakfast, sliding scale based on the patient's lab draw which was fasting. Patient
feels much better, denies sob, call matos in reach.
[2024-07-09 12:45] LABS: Glucose - Point of Care 106 mg/dl (70-99)
--- NOTE | 2024-07-09 14:06 | CM ---
CM following for DC planning needs.
Met w/ patient at bedside. He feels well and is planning to undergo CT Surg 07/11.
We reviewed pre and post op routines.
Pt. has CT surgery booklet.
Reviewed post op restrictions to include lifting, driving, flying and sternal precautions.
Reviewed post op MD appointments, Cardiac Rehab and visit from CT Transitional Care RN.
Plan is for CT Surgery, 07/11
Anticipated DC plan is for home w/ CT Transitional Care RN.
Will cont. to follow.
--- NOTE | 2024-07-09 14:11 | CM ---
Asked that patient update us when he is aware of [employer] insurance coverage.
Once obtained, can check on medication cost/coverage and provide to hospital for hospitalization.
[2024-07-09 17:25] LABS: Glucose - Point of Care 136 mg/dl (70-99)
--- NOTE | 2024-07-09 21:00 | PTCARENOTE ---
Assumed care of pt from dayshift RN. Walking rounds completed. Pt AAOx3. Speech appropriate. Pt flipping between SR and a-fib on the monitor. Murmur on auscultation. BP 138/82. Palpable pulses throughout. No edema. Pt on RA. POX 97%. Fine crackles
auscultated @ L base. Pt dyspnic w/ exertion. Pt abdomen soft/nontender. +BS. Pt voiding w/o difficulty. Right wrist and right groin cath sites intact, soft/nontender. Left PIVx1 CDI. Heparin infusing as ordered. No c/o pain at this time. Pt updated
w/ plan of care for the night. Call matos within reach.
[2024-07-10] VITALS (8 sets, daily range): BP systolic 102–144; BP diastolic 55–85; BMI 34.3
[2024-07-10] MEDS: HEPARIN 25000 UNITS/250 ML IV ×2 (00:59→17:44)
[2024-07-10 04:25] LABS: APTT 85.3 Sec (23.4-35.0)
[2024-07-10 04:38] LABS: Blood Urea Nitrogen 14 mg/dl (9-20); Carbon Dioxide 25 mmol/L (22-30); Chloride 100 mmol/L (98-107); Estimated Creatinine Clearance 111 ml/min; Glucose 121 mg/dl (70-99); Potassium 3.8 mmol/L (3.5-5.1); Sodium 135 mmol/L (135-145); eGFR > 60.00
--- NOTE | 2024-07-10 07:49 | W.PN.CARDCBS ---
Addendum entered and electronically signed by Jake Drew DO 07/10/24 12:10:
I saw and examined the patient.
The Vice President Of Contracts's note was reviewed and I agree with the note.
Comment:
Plan:
Cont IV lasix
Cont amiodarone, continues with PAFib
Cont IV heparin with eventual transition to oral anticoagulation
For MV repair and CABG MAZE LA clip am
Original Note:
Today's Communication / Plan
-
Continue IV Lasix
Continue amiodarone
Plan for OR tomorrow
Impression / Plan
-
.
PCP: [facility] [place]
Primary Education Professor: none, seen initially by Dr Drew
Impression:
Atrial fibrillation-new diagnosis
Acute heart failure-new diagnosis
Severe MR with torn cordae post leaflet.
Small b/l pleural effusions
Mid LAD stenosis involving diagonal branch by cath 07/07/24
DM-2, HbA1c 6.
HTN
Hyperlipidemia
ARGENIS on CPAP
COPD
NSVT on telemetry vs aberrancy
Overweight
Daily alcohol
EKG personally reviewed 07/02/24 2356: NSR, iRBBB
EKG personally reviewed 07/02/24 1608: afib with RVR and iRBBB, HR 115
Echo Jul 03 2024: EF 65-70% with severe eccentric MR.
Plan:
-Had a better night last night. No shortness of breath. Continue IV Lasix 40 mg twice daily to maintain euvolemia
-echo with preserved EF and severe MR. cath 07/07 with mid LAD stenosis involving diagonal branch. planned for MV repair/replacement/MAZE/ELAA/+/- CABG by Dr. Maldonado on Wednesday 07/11.
-continue asa, IV heparin, lopressor. lisinopril on hold preop
-currently in rate controlled afib with suspected occasional brief runs of aberrancy on review of tele. eventual OAC for PAF post operatively. continue amio 200mg BID. follow QTc
-LDL 73. continue crestor
-will continue to follow
Progress Note - Primary Education Professor
Subjective
Date of Service: July 10, 2024
No issues overnight. States he slept well
Objective
Labs:
07/08/24 02:32
07/10/24 03:56
Labs
Hgb 12.6 g/dL (13.0-18.0) L 07/08/24 02:32
Hct 35.8 % (39.0-52.0) L 07/08/24 02:32
Plt Count 276 10^3/uL (130-400) 07/08/24 02:32
PT 16.9 Sec (11.4-14.6) H 07/05/24 05:27
INR 1.39 07/05/24 05:27
APTT 85.3 Sec (23.4-35.0) H 07/10/24 03:56
Sodium 135 mmol/L (135-145) 07/10/24 03:56
Potassium 3.8 mmol/L (3.5-5.1) 07/10/24 03:56
BUN 14 mg/dl (9-20) 07/10/24 03:56
Creatinine 0.8 mg/dL (0.7-1.3) 07/10/24 03:56
Glucose 121 mg/dl (70-99) H 07/10/24 03:56
Vital Signs and I&O:
Vital Signs
Temp Pulse Resp BP Pulse Ox
98.4 F 72 18 117/56 95
07/10/24 07:19 07/10/24 05:00 07/10/24 07:19 07/10/24 03:52 07/10/24 03:52
Vital Signs
Temp Pulse Resp BP Pulse Ox
98.4 F 72 18 117/56 95
07/10/24 07:19 07/10/24 05:00 07/10/24 07:19 07/10/24 03:52 07/10/24 03:52
Intake & Output
07/07/24 07/08/24 07/09/24 07/10/24
07:59 07:59 07:59 07:59
Intake Total 168 / 168 1300 / 1300
Output Total 1225 / 1225 350 / 350 2975 / 2975 2099 / 2099
Balance -1057 / -1057 -350 / -350 -1675 / -1675 -2099 / -2099
Physical Exam
Physical Exam
GEN: No distress, awake, alert, oriented x3
HEENT: supple, anicteric, mmm, eomi
LUNGS: CTA B/L, no wheezes
CV: Reg, S1/S2, 2/6 murmur
ABD: soft, BS+, NT/ND
EXT: No cyanosis, clubbing, edema
NEURO: Gross non-focal
SKIN: Warm, pink, dry. No rash
[2024-07-10] MEDS: LASIX 40 MG IV ×2 (08:00→15:46)
[2024-07-10] MEDS: FLUSH (NSS) 1 FLUSH IV (08:01)
[2024-07-10] MEDS: CRESTOR 5 MG PO (08:01)
[2024-07-10] MEDS: LOW STRENGTH ASPIRIN 81 MG PO (08:01)
[2024-07-10] MEDS: PACERONE 200 MG PO ×2 (08:01→20:24)
[2024-07-10] MEDS: LOPRESSOR 25 MG PO ×2 (08:02→20:24)
[2024-07-10 08:28] LABS: Glucose - Point of Care 126 mg/dl (70-99)
[2024-07-10] MEDS: NOVOLOG FLEXPEN-LOW RESISTANCE SC ×2 (08:32→12:11)
--- NOTE | 2024-07-10 09:33 | W.PN.HOSP.TC ---
Today's Communication/Plan
-
For MV valve repair and CABG MAZE LA clip tomorrow
Assessment / Plan
Assessment / Plan
71yo M with PMHx of DM diet controlled, HTN, HLD, anxiety came with 2 weeks of worsening SOB. Noticed gaining 15lbs over past couple of months, found in Afib with RVR and CHF, severe MR with torn chordae, planned for cardiac cath on 07/07/24 for preop
eval. To be managed with Lasix drip in IVU until valve repair
A/P:
#Afib with RVR, new onset
#Severe MR with torn chordae
Heparin drip, hold eliquis
Echo with severe eccentric MR, DOROTHY on 07/04/24 flail posterior MV leaflet, torn chordae P2
Appreciate CTS, cardiac cath on 07/07/24 shows elevated filling pressure
Appreciate cardiology input, rate control with BB & amiodarone, avoid Cardizem with acute CHF
For mitral valve repair and CABG MAZE LA clip on Wednesday 07/11
#Acute hypoxic insufficiency 2/2 Acute new onset CHF
Back on IV Lasix
#COPD not in exacerbation
Continue bronchodilators
#HLD
#Essential HTN
Continue statin, hold lisinopril for surg
#DM type 2 with unknown complications
Accuchecks, Insulin SS, DM diet, HgbA1c 6
DVT ppx -heparin drip, hold eliquis
Full code
Updated at bedside 07/07
Total time spent to see the patient on the floor, examine the patient, review data and lab results, discuss treatment plan with patient, nursing staff around 37 minutes.
Physical Exam
General: Obese, no acute distress
HEENT: Normocephalic, Atraumatic, EOMI, MMM
Respiratory: Clear to Auscultation bilaterally
Cardiac: Normal S1/S2, Regular Rate and Rhythm
GI: Soft, Nontender, Nondistended, Normal Bowel Sounds
Extremities: No Clubbing, Cyanosis
Neuro: Nonfocal/Grossly Intact
Psych: Calm, Cooperative
Derm: No Visible lesions
Anticipated Discharge: > 48 hours
Subjective/Interval History
-
Date of Service: July 10, 2024
Feels well. No CP/SOB/palp. No fever, no vomiting.
Objective Data
-
Labs:
Laboratory Results
07/10/24
03:56
APTT 85.3 H
Sodium 135
Potassium 3.8
Chloride 100
Carbon Dioxide 25
BUN 14
Creatinine 0.8
Glucose 121 H
Calcium 9.0
Vital Signs:
Vital Signs
Temp Pulse Resp BP Pulse Ox
98.4 F 66 18 112/55 96
07/10/24 07:19 07/10/24 08:02 07/10/24 07:19 07/10/24 08:02 07/10/24 08:34
I&O
07/09/24 07/10/24 07/11/24
06:59 06:59 06:59
Intake Total 1300 / 1300
Output Total 2975 / 2975 2099 / 2099
Balance -1675 / -1675 -2099 / -2099
[2024-07-10 11:46] LABS: Glucose - Point of Care 140 mg/dl (70-99)
--- NOTE | 2024-07-10 14:42 | CM ---
Cm following for DC planning needs.
Met w/ patient at bedside. He is planning and preparing for CT Surgery on 07/11.
Pt. has no concerns or needs at this time. Pre-op teaching completed 07/10.
Pt. knows to provide insurance info. once known.
Will cont. to try to obtain information on [employer] from pt.
[2024-07-10 17:20] LABS: Glucose - Point of Care 164 mg/dl (70-99)
[2024-07-10] MEDS: NOVOLOG FLEXPEN-LOW RESISTANCE 1 UNITS SC (18:27)
[2024-07-10 22:13] LABS: Glucose - Point of Care 126 mg/dl (70-99)
[2024-07-10] MEDS: ATIVAN 1 MG PO (22:29)
--- NOTE | 2024-07-10 22:50 | PTCARENOTE ---
Pt prepped for cvor in am. clipped and showered with $ % chlorhexidine. Pt aware of npo status after mn. po Ativan given at HS per pt request due to anxiety. Heparin continued at 1500 units/hr
[2024-07-11 05:24] VITALS: BP 105/74
[2024-07-11 05:27] VITALS: BP 113/68
[2024-07-11] MEDS: LOPRESSOR 25 MG PO (05:50)
[2024-07-11] MEDS: BACTROBAN 2% OINTMENT 1 APPLIC NASAL ×2 (05:51→19:09)
[2024-07-11] MEDS: PROTONIX 40 MG PO (05:51)
[2024-07-11] MEDS: MAGNESIUM OXIDE 500 MG PO (05:51)
[2024-07-11 05:57] LABS: Glucose - Point of Care 121 mg/dl (70-99)
[2024-07-11 06:00] VITALS: BMI 33.8
--- NOTE | 2024-07-11 06:21 | W.CVOR.SURPR ---
CVOR Surgeon Immed Pre Op
-
I have examined this patient prior to performance of the scheduled procedure.
The patient's condition is unchanged from the time of the dictated/written History and
Physical and the patient is able to undergo the scheduled procedure.
MV Repair + CABG x 2 + MAZE + ANANT Clip
[2024-07-11 07:22] LABS: ACT+ - POC 104 Seconds (82-134)
[2024-07-11 07:55] LABS: Urine Albumin Trace (Neg - Trace); Urine Bilirubin Negative (Negative); Urine Character Slightly Cloudy (Clear); Urine Color Yellow; Urine Glucose Negative (Negative); Urine Ketone Negative (Negative); Urine Leukocyte Trace (Negative); Urine Nitrite Negative (Negative); Urine Occult Blood 1+ (Negative); Urine Urobilinogen Negative (Neg - 1+)
[2024-07-11 08:13] LABS: Urine Bacteria Few (Negative); Urine Red Blood Cell 0-2 /HPF (0-2); Urine Squamous Cell 0-2 /LPF (Few); Urine White Cell 0-2 /HPF (0-5)
[2024-07-11 08:47] LABS: ACT+ - POC 458 Seconds (82-134)
--- NOTE | 2024-07-11 09:14 | CM ---
Plan is for OR today for MV Repair + CABG x 2 + MAZE + ANANT Clip
CM to follow for DC planning needs.
Pt. resides at home w/ spouse, son, DIL and several grandchildren. Pt. is indep. at baseline w/ ADLs, mobility. Recently lost his job and is currently un-insured. Reportedly working on [employer]; awaiting confirmation of coverage to ascertain coverage
for medications, hospitalization.
Anticipated DC plan is for home with CT Transitional Care RN.
CM to follow.
[2024-07-11 09:17] LABS: B.E. - POC -0.7 mmol/L; Glucose - POC 134 mg/dl (70-99); HCO3 - POC 24 mmol/L (21-29); Hematocrit - POC 41 % PCV (42-52); Hemodilution- POC No; Ionized Calcium - POC 1.19 mmol/L (1.12-1.27); O2 Saturation %Calculated-POC 94.9 5 (92-96); PCO2 - POC 38 mmHg (35-45); PO2 - POC 75 mmHg (80-100); POC Comment PRE; Potassium - POC 3.7 mmol/L (3.6-5.0); Sodium - POC 137 mmol/L (135-145); pH - POC 7.41 (7.35-7.45)
[2024-07-11 09:24] LABS: ACT+ - POC 542 Seconds (82-134)
[2024-07-11 09:51] LABS: Glucose - POC 135 mg/dl (70-99); HCO3 - POC 27 mmol/L (21-29); Hematocrit - POC 29 % PCV (42-52); Hemodilution- POC Yes; Ionized Calcium - POC 0.98 mmol/L (1.12-1.27); PCO2 - POC 33 mmHg (35-45); PO2 - POC 326 mmHg (80-100); POC Comment CPB; Potassium - POC 4.3 mmol/L (3.6-5.0); Sodium - POC 135 mmol/L (135-145); pH - POC 7.52 (7.35-7.45)
[2024-07-11 09:59] LABS: ACT+ - POC 526 Seconds (82-134)
[2024-07-11 10:12] LABS: B.E. - POC 1.8 mmol/L; Glucose - POC 190 mg/dl (70-99); HCO3 - POC 27 mmol/L (21-29); Hematocrit - POC 34 % PCV (42-52); Hemodilution- POC Yes; Hemoglobin Calculated - POC 11.6; Ionized Calcium - POC 1.02 mmol/L (1.12-1.27); O2 Saturation %Calculated-POC 99.3 5 (92-96); PCO2 - POC 42 mmHg (35-45); PO2 - POC 150 mmHg (80-100); POC Comment CPB; Sodium - POC 136 mmol/L (135-145); pH - POC 7.41 (7.35-7.45)
[2024-07-11 10:21] LABS: ACT+ - POC 527 Seconds (82-134)
[2024-07-11 10:49] LABS: B.E. - POC 1.1 mmol/L; Glucose - POC 210 mg/dl (70-99); HCO3 - POC 27 mmol/L (21-29); Hematocrit - POC 37 % PCV (42-52); Hemodilution- POC Yes; Hemoglobin Calculated - POC 12.7; Ionized Calcium - POC 1.07 mmol/L (1.12-1.27); O2 Saturation %Calculated-POC 99.8 5 (92-96); PCO2 - POC 49 mmHg (35-45); PO2 - POC 263 mmHg (80-100); POC Comment CPB; Potassium - POC 4.1 mmol/L (3.6-5.0); Sodium - POC 137 mmol/L (135-145); pH - POC 7.36 (7.35-7.45)
[2024-07-11 10:58] LABS: ACT+ - POC 508 Seconds (82-134)
[2024-07-11 11:12] LABS: B.E. - POC 0.5 mmol/L; Glucose - POC 175 mg/dl (70-99); HCO3 - POC 26 mmol/L (21-29); Hematocrit - POC 36 % PCV (42-52); Hemodilution- POC Yes; Hemoglobin Calculated - POC 12.2; Ionized Calcium - POC 1.07 mmol/L (1.12-1.27); O2 Saturation %Calculated-POC 99.9 5 (92-96); PCO2 - POC 46 mmHg (35-45); PO2 - POC 310 mmHg (80-100); POC Comment CPB; Potassium - POC 4.5 mmol/L (3.6-5.0); Sodium - POC 138 mmol/L (135-145); pH - POC 7.37 (7.35-7.45)
[2024-07-11 11:22] LABS: ACT+ - POC 565 Seconds (82-134)
[2024-07-11] MEDS: LASIX IV (11:30)
[2024-07-11] MEDS: NOVOLOG FLEXPEN-LOW RESISTANCE SC ×2 (11:30→11:31)
[2024-07-11] MEDS: CRESTOR PO (11:30)
[2024-07-11] MEDS: LOW STRENGTH ASPIRIN PO (11:31)
[2024-07-11] MEDS: PACERONE PO ×2 (11:31→16:52)
[2024-07-11] MEDS: LOPRESSOR PO (11:31)
[2024-07-11] MEDS: ANCEF 10 IV ×2 (11:53→13:14)
[2024-07-11 12:03] LABS: B.E. - POC 0.8 mmol/L; Glucose - POC 183 mg/dl (70-99); HCO3 - POC 26 mmol/L (21-29); Hematocrit - POC 35 % PCV (42-52); Hemodilution- POC Yes; Ionized Calcium - POC 1.06 mmol/L (1.12-1.27); O2 Saturation %Calculated-POC 99.9 5 (92-96); PCO2 - POC 42 mmHg (35-45); PO2 - POC 258 mmHg (80-100); POC Comment WARM; Potassium - POC 4.4 mmol/L (3.6-5.0); Sodium - POC 139 mmol/L (135-145)
[2024-07-11 12:08] LABS: ACT+ - POC 98 Seconds (82-134)
[2024-07-11 12:34] LABS: B.E. - POC -2.2 mmol/L; Glucose - POC 141 mg/dl (70-99); HCO3 - POC 23 mmol/L (21-29); Hematocrit - POC 32 % PCV (42-52); Hemodilution- POC Yes; Hemoglobin Calculated - POC 10.8; Ionized Calcium - POC 1.27 mmol/L (1.12-1.27); O2 Saturation %Calculated-POC 91.1 5 (92-96); PCO2 - POC 41 mmHg (35-45); PO2 - POC 64 mmHg (80-100); POC Comment POST; Potassium - POC 3.8 mmol/L (3.6-5.0); Sodium - POC 140 mmol/L (135-145); pH - POC 7.36 (7.35-7.45)
--- NOTE | 2024-07-11 12:40 | W.PN.UPDATE ---
Addendum entered and electronically signed by INGRID Patel 07/11/24 16:03:
Edit: UOP 350
Original Note:
Update Note
Progress Note Update
Crystalloid:� 1200
U.O.:� 60
UF:� 1450
Blood:� None
Wires:� A+V
Inotropes:� Dobutamine
Pressors:� Levophed
Sedatives:� Precedex
�
NEURO: sedated on precedex, pupils +1mm B/L
RESP: #8OT @23cm> 12/500/5/60 sats 86% and PEEP was increased to 10 and FIO2 increased to 80%. Lungs clear B/L. 2 mediastinal (10cc on arrival) and pleural (5cc on arrival) chest tubes to -20cm suction. Sanguineous drainage
CV: RRR +S1, S2, no S3, no�rub, no murmur. Dermabond to median sternotomy. RIJ w/Pitts locked @ 48cm. PA XX; CVP XX; C.O XX/CI XX
ABD: round, soft, no BS
EXT: no edema, +2/4 DP pulses B/L, no femoral bruit, LE RENEE wrap intact; left radial A-line intact
: Echeverria with clear yellow urine
�
A/P: POD #0 s/p Radical mitral valve repair [triangular resection of P2, primary repair of P2 and P1, closure of cleft of P2 and P3, plication of the free margin at A2 A3, single Amenia-Jonathan cord to the posterior medial papillary muscle head to the P2
segment, 34 mm band annuloplasty], CABG x 2 [in situ NIEVES to LAD, Ao to RSVG to diagonal], MAZE, LAAC
DOROTHY: EF�50% with no new regional wall motion abnormalities
- wean and extubate
- Monitor CT and urine output
- Follow up labs and CXR
- Wean levophed for maps >65
- Slow wean on dobutamine
- Will start ASA tonight
- EKG pending and will send to cards
>>Currently Junctional with HRs 40s (Pre-op EKG was SB with HR 50s)
>>Hold BB/Amio until HR recovery
- Cards consulted
- will need instruction regarding antibiotic prophylaxis for dental and invasive procedures
�
# acute surgical blood loss anemia-expected
- trend CBC
�
# Pre-DM (A1C 6.0)
- insulin infusion x 24h
- Will transition to SSI
�
# Hyperlipidemia
- resume�statin when tolerating PO
--- NOTE | 2024-07-11 12:46 | W.PN.CT.SURG ---
CT Surgery Operative Note
-
CARDIAC SURGERY OPERATIVE REPORT
Preoperative Diagnosis: Respiratory failure and new onset atrial fibrillation secondary to mitral valve insufficiency
Postoperative Diagnosis: Same in addition to coronary artery disease of the proximal LAD
Procedure(s) Performed:
1. Standard sternotomy with aortic and bicaval cannulation
2. CABG x 2 [in situ NIEVES to LAD, Ao to RSVG to diagonal]
3. Radical mitral valve repair [triangular resection of P2, primary repair of P2 and P1, closure of cleft of P2 and P3, plication of the free margin at A2 A3, single [place]-Jonathan cord to the posterior medial papillary muscle head to the P2 segment, 34
mm band annuloplasty]
4. Left atrial maze using cryo ablation
5. Left atrial appendage exclusion [35 mm clip, additional suture closure of the internal orifice was required]
6. Placement of temporary atrial and ventricular pacing wires
7. Transesophageal echocardiography
8. Endoscopic vein harvest of the right lower extremity
Date of Surgery: 07/11/2024
Comorbidities:
1. Acute on chronic congestive systolic and diastolic heart failure with associated respiratory failure from volume overload, LVEDP was elevated, right heart filling pressures were also elevated
2. Left heart catheter this admission with newly diagnosed proximal LAD disease
3. Type II mitral valve insufficiency secondary to prolapse as well as flail with torn cords at the P2 scallop
4. Morbidly obese with a BMI of 33
5. Non-insulin diabetes melitis
6. Hypertension
7. Hyperlipidemia
8. ARGENIS on CPAP
Attending Surgeon: Javier Maldonado MD, MS
Assistants: Leah Ace PA-C (present and necessary to wheelchair van operator first responder, retraction, suction, exposure, suture management, and wound closure under my direction)
Anesthesiology: Get Leyva MD and Gem Smith CRNA
Scrub and Circulating RNs: Chantell Canchola, RN, Shasta Guthrie RN
Scalping Machine Operator: Fabricio Gutierrez CCP
Anesthesia: GETA
EBL: per perfusion records
Products: None
CPB Time: 166 minutes
Aortic Cross Clamp Time: 139 minutes
Indication(s) for Procedures: This is a 64-year-old male who denies any significant history in the past of mitral valve disease. He presented approximately 12 days ago with new onset atrial fibrillation as well as shortness of breath and
respiratory failure. Per his he also gained significant amount of weight over the last several days. As part of her workup, he was found to have severe mitral valve insufficiency secondary to type II pathology myxomatous degeneration of the
mitral valve, prolapse of the P2 into P1 segment as well as a flail P2 segment with multiple torn cords. His annulus was also dilated with a dilated left atrium. He underwent left heart cath on this admission as part of his workup he was found to
have newly diagnosed proximal LAD disease spanning a large diagonal vessel. He is unable to be discharged home given that he had continued symptoms with ambulation and required IV Lasix frequently. Right heart cath demonstrated significantly
elevated LVEDP is also right heart filling pressures. He was counseled on the risk of mitral valve repair, maze, left atrial appendage ligation, and now CABG x 2. He accepted those risks and so we proceeded..
Conduit(s) Quality:
NIEVES -good quality/excellent visual flow with removal of the bulldog clamp
RSVG -good quality/uniform with no significant varicosities or thickening
Target(s) Quality:
Dx -intramyocardial/overall good quality vessel with a flow of approximately 40 cc a minute at a pressure of 80.
LAD -also intramyocardial/use graft onto the mid to distal region with good visual flow directed towards the apex upon removal of the bulldog
Mitral Valve Description: Abnormal valve with bileaflet thickening, the most significantly abnormal regions include P1 and P2 with prolapse mainly of the P2 scallop heading into towards the P1 scallop. There are also multiple torn cords at the P2
free margin. There was a central jet towards the anterior lateral aspect of the valve between A3 and P3. There was some evidence of prolapsing of the A3 scallop accounting for the central jet.
Findings: Left ventricular ejection fraction preoperatively was 50 to 55% with no significant regional wall motion abnormalities. Following surgery his EF remained the same at approximately 50% with no new regional wall motion abnormalities. His
mitral valve was very abnormal with a complex jet involving both an eccentric component directed anteriorly from the flail segment at the P2 into P1 scallop but also a central component at the anterior lateral aspect of the mitral valve between A3
P3. His valve was repaired using a triangular resection at the P2 scallop of the torn cords and redundant tissue as well as reapproximation of the P2 scallop onto the P1 scallop. I then closed the cleft between P2 and P3 and also had to do free
margin remodeling at the A2 A3 segment in order to bring down the A3 scallop. A single [place]-Jonathan cord was placed to the posterior medial papillary muscle to the P2 scallop and the valve was remodeled using a total of 12 nonpledgeted 2-0 Ethibond
sutures securing a [address] with core knots. Dynamic inflation of the left ventricle demonstrated good coaptation height and ink test demonstrated a posterior coaptation line with appropriate height. Prior to doing the mitral valve
repair, his bypasses were performed as well as the left atrial appendage ligation. His appendage was verified to be free of any thrombus or debris preoperatively and totally occlusive at the conclusion of the case. I did have to sew the orifice of
the left atrial appendage close at the inside of the left atrium as I noticed that the clip may have slipped back slightly given he had a significant amount of intra pericardial fat. A full left atrial maze was performed using cryotherapy with the
lesion set listed below. Test dosing of antegrade down the vein graft demonstrated a mean flow of 40 cc a minute at a pressure of 80. There is excellent visual flow in the LAD territory upon removal of the bulldog clamp. After coming off
cardiopulmonary bypass transesophageal echocardiogram evaluation of mitral valve revealed no residual mitral valve insufficiency. No systolic anterior motion of leaflets. And a mean gradient of 2 across the valve. He was in complete heart block
at the inclusion of the case and required atrial-ventricular pacing. His cardiac index was mild to moderately depressed at approximately 1.6 coming off of cardiopulmonary bypass and so a low-dose of dobutamine was started at 3. No blood products
were given. Some scavenged Cell Saver blood was given back to the patient.
Ablation Lines:
1. Box lesion to posterior LA wall
2. ANANT lesion + ANANT Exclusion + Division of Ligament of Hema
3. Coronary sinus lesion
4. Posterior mitral annular line toward P2/P3
Specimen(s): Posterior P2 scallop, flail segment.
Prosthesis:
1. ANANT Clip, 35mm, SN [id number]
2. 34mm ALEXANDRE PhysioFlex Band, SN [id number]
Description of Procedure: The patient was taken to the operating room. Their identity and procedure to be performed were verified and they were positioned supine on the operating table. Induction via general anesthesia with endotracheal intubation
was performed and central venous access and arterial monitoring were inserted. A preoperative transesophageal echocardiogram was performed to assess cardiac function and valvular function. The patient was then prepped and draped from chin to feet in
a sterile fashion. A preoperative time-out was performed with all members of the team present. A midline chest incision was performed along with median sternotomy. Simultaneous endoscopic access of the right lower extremity for saphenous vein
harvest was obtained along with administration of an initial 5,000 units of IV heparin. A RulTract sternal retractor was positioned to exposure the left internal mammary bed. The mammary was harvested and found to have good flow. A bulldog clamp was
applied to the distal end of the mammary after dividing it. It was wrapped in a papaverine soaked RayTec and replaced back into the left hemithorax. The RulTract was exchanged for a median sternal retractor. The innominate vein was isolated. Full
heparinization was given [place] [address]53 units). We created a pericardial well. The aortic cannulation site was chosen where it was soft, pliable, and free of calcium. Cannulation was performed with an arterial cannula in the ascending aorta,
malleable 32F cannula in the superior vena cava via the right atrial appendage and straight bendable cannula in the inferior vena cava. The arterial cannula line had an appropriate bounce and correlating pressures. Next, a root vent/antegrade
cannula was inserted into the ascending aorta. The ACT was confirmed to be over 400 and retrograde autologous priming was performed before commencing cardiopulmonary bypass. The pulmonary artery was away from the aorta to facilitate a
clamp site. Sondergaard�s groove was developed after creating the oblique sinus. The aortic cross-clamp was placed after decreasing the flow on the bypass and mean arterial pressure. A total of 1.2L initial dose of antegrade Del-Nido cardioplegia
solution was given and planned for re-dosing every 75 minutes as necessary. There was rapid electro-mechanical arrest of the heart at 300 cc of cardioplegia. The left ventricle was observed for distention on echocardiogram and manual palpation. Cold
slush was placed into a lap on the RV and we systemically cooled to 34 degrees centigrade. As the heart was arrested, the left atrial appendage was exposed and clipped with a 35 mm clip.
I positioned the heart to expose the diagonal vessel. Of note, his LAD and diagonal vessels were very intrapericardial and buried in fat. A [place]of bay blade was used to expose the coronary and perform the arteriotomy. Coronary Briceño scissors were used
to enlarge the incision. The saphenous vein was trimmed and beveled to an appropriate size. The distal anastomosis was performed using 7-0 prolene in an end-to-side fashion. Antegrade cardioplegia was administered into the graft. Appropriate
hemostasis and flow were confirmed. The graft was measured for length to the aorta and cut. We retrieved the NIEVES from the chest and created a pericardial opening while being cognizant of the phrenic nerve to facilitate the course of the mammary.
The distal end of the mammary was prepped and beveled to size. We verified orientation and length of the DEYSI and found brisk flow. An end-to-side anastomosis was created with a 7-0 prolene. We temporarily released the bulldog clamp on the mammary to
inspect flow. Perfusion to the LAD territory was visualized and hemostasis was confirmed. The bull clamp was replaced on the mammary. Carbon dioxide was used to flood the field. The mitral valve was access via the left atrium followed by valve
analysis. The mitral valve was repaired as described above. Left atrial maze was also performed using cryoablation the left ventricular vent was repositioned across the mitral valve into the left ventricular and the left atrium was closed with a
3-0 prolene. At this point I turned my attention back to the root performed 1 aortotomy. The vein graft was then anastomosed in end-to-side fashion with 6-0 Prolene in a running fashion.
De-airing maneuvers were performed and temporary bipolar ventricular pacing wires were placed on the base of the right ventricle and atrial pacing wires at the svc right atrial junction. The patient was placed in a Trendelenburg position and flows
on bypass were lowered. The aortic cross clamp was removed and flows were slowly brought back up. The left atrial suture line was hemostatic. Transesophageal echocardiography revealed no evidence of systolic anterior motion and ventricular function
was normal. Once de-airing was satisfactory the left ventricular and root vents were removed. After verifying acceptable parameters, we initiated weaning from cardiopulmonary bypass. Once we were off cardiopulmonary bypass, the venous cannulas was
clamped and removed sequentially. A test dose of protamine was administered and the patient was monitored for any adverse reaction before resuming protamine. Once half of the protamine dose was delivered, pump suckers were turned off and the
systolic blood pressure was lowered for aortic decannulation. The aortic cannula was removed and purse strings were tied down. All cannulation sites were oversewn with a 4-0 prolene. The left atrial suture line was inspected and hemostasis was
confirmed. Mediastinal hemostasis was obtained. Two #24 Nigel drains were placed within the pericardium with a single #19 Nigel drain to the left hemithorax. The sternum was approximated with 4 #7 single and 3 #8 double stainless steel wires. Fascia
was approximated with #1 vicryl suture. The subcutaneous, dermis and epidermis were closed in layers in a running fashion. The skin wound was cleansed and dressed.
All instrument, sponge, and needle counts were confirmed to be correct x 2 at the end of the operation. The patient was transferred to the cardiac intensive care unit in critical but stable condition.
I, Dr. Javier Maldonado, was present, scrubbed for, and performed all critical elements of this procedure.
Javier Maldonado MD, MS
Cardiothoracic Surgeon
[facility]
This dictation was created using the Machine Talker dictation system. Please excuse any grammatical, typographical, or 'sound alike' errors
[2024-07-11 13:00] LABS: Glucose - Point of Care 136 mg/dl (70-99)
--- NOTE | 2024-07-11 13:00 | PTCARENOTE ---
Patient received from [facility] at 1300, intubated and sedated. AV paced HR 70 on the monitor. Epicardial AV wires present with DDD pacer settings 70/15/10. Lungs clear, 8.0 ETT positioned and secured at 23 cm center lip. Ventilator settings SIMV
12/500/5/5 FiO2 80% for low SpO2 on arrival to the unit. CTx3 to -20 cm wall suction draining sanguinous drainage, no tidaling, air leak or crepitus. Hypoactive BS - abdomen soft. Echeverria catheter in place draining yellow urine. Skin dry, cool,
midline sternal incision CDI with skin glue NICOLE. R groin site FARE COLLECTOR, soft, ecchymotic. RSVG site CDI with phillip wrap, distal pedal pulses palpable.
[place] R radial artery, line zeroed/level. Cordis present in RIJ with Hayti-vince at 45. PIV 20 gauge in L wrist. Levophed, insulin, Precedex, and Dobutamine running on arrival. See worklist for titration details.
--- NOTE | 2024-07-11 13:10 | CON.INTV ---
Consultation
Consultation Request
Date/Time Consultation Requested: 07/11/2024 - 1220
Date/Time Consultation Performed: 07/11/2024 - 1250
Requesting Provider: INGRID Valverde
Performing Provider: David Quintanilla MD
Reason for Consultation: s/p CABG + MV-repair
Medical History
-
Chief Complaint: Shortness of breath
History of Present Illness:
64-year-old male with a past medical history of DM type II, hypertension, ARGENIS on CPAP + hyperlipidemia who presented on 07/02/2024 with worsening SOB with activity x 1 week. He denies chest pain, palpitations or dizziness. [facility] and CXR showed pleural effusion (unclear which side). He is also found to have irregular heartbeat so was sent to the ER for further evaluation. Initial EKG showed atrial fibrillation with RVR with ventricular rate of 115 bpm.
Initial vitals showed he was afebrile to 97.9 �F, breathing at 16 breaths/min, BP 138/94 and saturating 97% on room air. Initial vitals showed Hb 13.7, proBNP 1180, and initial troponin negative at <0.12. Initial CXR showed mild pulmonary edema
with small bilateral pleural effusions with adjacent atelectasis. He was given 20 mg Cardizem, 40 mEq potassium +60 mg Lasix and admitted to telemetry under the hospitalist service. Cardiology was consulted, he is started on diuresis and echo
showed severe eccentric MR with preserved LVEF 65-70% with normal regional wall motion. CT surgery was consulted. DOROTHY was performed on 07/04/2024 showing severe eccentric anteriorly directed MR with partial flail posterior MV leaflet with torn
chordae at approximately P2. Left heart catheterization performed on 07/07 showed 70% mid LAD stenosis with elevated LV filling pressures with LVEDP 20 mmHg and +4 mitral regurgitation. Surgical revascularization plus valve repair was discussed
with the patient including its risks and benefits. Eliquis was stopped, heparin drip was started and Lasix was continued. Today, patient underwent CABG x 2 with radical mitral valve repair, ANANT maze using cryoablation + left atrial appendage
exclusion with a 35mm clip. Patient underwent procedure without any immediate complications and was transferred to the CVICU postoperatively. [facility] services consulted for additional management/recommendations.
When I saw the patient he was intubated on SIMV at 12/500/80%/10, with PS of 5. PIP was 24 cmH2O, he was breathing at 12 breaths/minute and VTe was 451 mL. He was saturating 95%, with BP via right femoral A-line 108/58, heart rate 70, PAP: 38/22
and CO/CI: 3.42/1.78. He was on Levophed at 2 mcg/min, dobutamine at 3 mcg/kg/min and insulin drip at 3 units/hr.
PMHx: DM type II, ARGENIS on CPAP, hyperlipidemia, hypertension
PSHx: Bilateral knee surgery, cholecystectomy
Past Medical History
Past Medical History: Other (Above as per HPI)
Past Surgical History: Other (Above as per HPI)
Social History
Tobacco: Non-smoker
Alcohol: None
Drug: None
Personal:
Living: With Family
Employment: Employed
Family History
Family History: Reviewed & Not Pertinent
Allergies / Home Medications
Allergies
Allergy/AdvReac Type Severity Reaction Status Date / Time
No Known Allergies Allergy Verified 07/02/24 19:25
Home Medications
�Medication �Instructions �Recorded �Confirmed �Last Taken �Type
benazepril 20 mg tablet 20 mg PO DAILY 07/02/24 07/03/24 07/02/24 History
ibuprofen 200 mg tablet 400 mg PO Q6HPRN PRN mild pain 07/02/24 07/02/24 07/01/24 History
rosuvastatin 5 mg tablet 5 mg PO DAILY 07/02/24 07/03/24 07/02/24 History
Review of Systems
-
Unable to Obtain full review of systems at this time due to: Patient Intubation
Vitals / Labs / Diagnostic Testing
Vital Signs
Temp Pulse Resp BP Pulse Ox
97.6 F 70 18 113/68 92
07/11/24 15:00 07/11/24 14:05 07/11/24 15:00 07/11/24 05:27 07/11/24 15:00
Lab Data
07/11/24 16:21
07/11/24 12:59
Laboratory Results
07/11/24
12:59
PT 18.0 H
INR 1.51
APTT 35.5 H
pH 7.34 L
pCO2 46
pO2 67 L
HCO3 24.8
O2 Delivery Level Vent
Microbiology
07/04/24 19:25 Blood/Venous Blood Culture - Final
No Growth - Final Report
07/04/24 13:57 Blood/Venous Blood Culture - Final
No Growth - Final Report
Diagnostic Testing:
Physical Exam
-
HEENT: Normocephalic, Anicteric and Other (ETT in place)
Cardiovascular: Peripheral Edema (negative) and Other (normal heart rate)
Respiratory: Wheeze (negative), Rales (negative), Rhonchi (negative), Non-Labored Respirations, Other (Mechanical breath sounds heard bilaterally) and Other (Chest tubes:(mediastinal chest tubes x 2+ left pleural chest tube x 1))
GI: Soft, Non Distended, Non Tender and Normal Bowel Sounds
Neurology: Tremors (negative) and Other (Sedated)
Skin: Warm and Dry
General: Respiratory Distress (negative), Chills (negative) and Sweats (negative)
Assessment
-
Assessment: 64-year-old male with a past medical history of DM type II, hypertension, ARGENIS on CPAP + hyperlipidemia who presented on 07/02/2024 with worsening SOB with activity x 1 week. He denies chest pain, palpitations or dizziness. [facility] and CXR showed pleural effusion (unclear which side). He is also found to have irregular heartbeat so was sent to the ER for further evaluation. Initial EKG showed atrial fibrillation with RVR with ventricular rate of
115 bpm. Initial vitals showed he was afebrile to 97.9 �F, breathing at 16 breaths/min, BP 138/94 and saturating 97% on room air. Initial vitals showed Hb 13.7, proBNP 1180, and initial troponin negative at <0.12. Initial CXR showed mild
pulmonary edema with small bilateral pleural effusions with adjacent atelectasis. He was given 20 mg Cardizem, 40 mEq potassium +60 mg Lasix and admitted to telemetry under the hospitalist service. Cardiology was consulted, he is started on
diuresis and echo showed severe eccentric MR with preserved LVEF 65-70% with normal regional wall motion. CT surgery was consulted. DOROTHY was performed on 07/04/2024 showing severe eccentric anteriorly directed MR with partial flail posterior MV
leaflet with torn chordae at approximately P2. Left heart catheterization performed on 07/07 showed 70% mid LAD stenosis with elevated LV filling pressures with LVEDP 20 mmHg and +4 mitral regurgitation. Surgical revascularization plus valve
repair was discussed with the patient including its risks and benefits. Eliquis was stopped, heparin drip was started and Lasix was continued. On 07/11/2024, he underwent CABG x 2 with radical mitral valve repair, ANANT maze using cryoablation + left
atrial appendage exclusion with a 35mm clip. Patient underwent procedure without any immediate complications and was transferred to the CVICU postoperatively. [facility] services consulted for additional management/recommendations.
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
Impression:
#CAD involving mid-LAD s/p CABG x 2 (POD#0)
#Acute respiratory failure with hypoxia with new onset atrial fibrillation due to mitral valve insufficiency s/p radical mitral valve repair + ANANT-exclusion + LA-MAZE (POD #0)
#Abnormal urinalysis with trace leukocyte esterase and few urine bacteria
#RUL patchy opacities seen on CT Chest from 07/04/2024
#ARGENIS on CPAP
#DM type II
#HTN
#HLD
Plan:
Ventilator settings reviewed
FiO2 will be weaned to maintain SpO2 >90-94%
Minute ventilation will be adjusted
Arterial blood gases will be monitored
Spontaneous breathing trial will be attempted with hopeful extubation after anesthesia/sedation wear off
prn nebulized bronchodilators
Pulmonary artery catheter parameters will be followed
Pressors/antihypertensive/inotropes/diuretics will be provided as needed
Maintain MAP>65
Replete electrolytes with K>4, Mg>2
Monitor chest tube output (mediastinal x 2+ left pleural chest tube x 1)
Monitor hemoglobin
Monitor platelet count and coags
Transfuse blood products as needed to maintain Hb>7g/dL, plt>50k (given post-operative status)
CT surgery managing chest tubes
Monitor blood sugar to maintain euglycemia with goal BG 140-180
Insulin drip per protocol
Aspiration precautions
VAP prevention protocol
DVT prophylaxis
Early nutrition
Early mobilization
Of note, he had several patchy opacities seen in his right upper lobe from CT chest from 07/04/2024. Imaging with CT chest without contrast should be repeated in about 4-6 weeks to follow-up this to resolution.
Critical care statement: A total of 41 minutes of critical care time was provided for this patient today. This includes management of ventilator, spontaneous breathing trial, arterial blood gases, pressors, of unstable vital signs, evaluation of the
patient at bedside, reviewing the patient's pertinent medical records including radiographs, microbiology, laboratory evaluations, and discussion with primary team and critical care nursing.
Data:
Ct Chest/Abdomen/Pelvis 07/04/2024:
1. Small bilateral pleural effusions with adjacent atelectatic changes as above, right greater than left. Small amount of abnormal peribronchovascular groundglass and interstitial opacity in the right upper lobe which could be related to either
edema or infection.
2. Coronary and aortic atherosclerosis. Negative for aortic aneurysmal dilation.
3. No acute intra-abdominal process.
[2024-07-11] MEDS: NEURONTIN PO ×2 (13:14→16:52)
[2024-07-11] MEDS: NOVOLOG FLEXPEN SC ×2 (13:15→16:52)
[2024-07-11] MEDS: TYLENOL PO (13:15)
[2024-07-11] MEDS: NSS 500 IV (13:15)
[2024-07-11 13:20] LABS: B.E. -1.2 mmol/L; HCO3 24.8 mmol/L (21-28); Ionized Calcium 1.19 mMOL/L (1.15-1.33); O2 Saturation % 94.1 % (94-98); PCO2 46 mmHg (35-48); PO2 67 mmHg (83-108); Potassium 4.2 mMOL/L (3.5-5.1); Sodium 135 mMOL/L (136-145); pH 7.34 (7.35-7.45)
[2024-07-11 13:22] LABS: O2 Therapy VENT
[2024-07-11 13:32] LABS: INR 1.51
[2024-07-11 13:33] LABS: APTT 35.5 Sec (23.4-35.0)
--- NOTE | 2024-07-11 13:33 | W.PN.CARDCBS ---
Addendum entered and electronically signed by Robert Sadler MD 07/11/24 17:40:
I saw and examined the patient.
The Water Hydrant Installer's note was reviewed and I agree with the note.
Comment: Briefly, 64-year-old man presenting in decompensated heart failure found to have severe mitral regurgitation due to torn chordae and is now postop day 0 from mitral valve repair and CABG x 2
Intubated and sedated in the CVICU at the time of my exam
On low-dose dobutamine for hemodynamic support
Filling pressures are reasonable by invasive hemodynamics but would monitor closely as he may require IV diuresis in the next few days
Postop ECG with ectopic atrial bradycardia, currently AV paced at 70 bpm
Beta-tushar on hold given bradycardia
Agree with aspirin/Plavix and statin
On Amio given recent diagnosis of atrial fibrillation
Now status post left atrial appendage clip, would consider oral anticoagulation when safe from a surgical standpoint
Original Note:
Today's Communication / Plan
-
continue post op care
follow rhythm
Impression / Plan
-
.
PCP: [facility] in [place]
Energy Conservation Director: none, seen initially by Dr Drew
Impression:
Status post CABG x2 in situ NIEVES to LAD, Ao ro RSVG to diagonal, radial MV repair, maze, ANANT clip 07/11/24
Atrial fibrillation-new diagnosis
Acute heart failure-new diagnosis
Severe MR with torn cordae post leaflet.
Small b/l pleural effusions
Mid LAD stenosis involving diagonal branch by cath 07/07/24
DM-2, HbA1c 6.
HTN
Hyperlipidemia
ARGENIS on CPAP
COPD
NSVT on telemetry vs aberrancy
Overweight
Daily alcohol
EKG personally reviewed 07/02/24 2356: NSR, iRBBB
EKG personally reviewed 07/02/24 1608: afib with RVR and iRBBB, HR 115
Echo Jul 03 2024: EF 65-70% with severe eccentric MR.
Plan:
-Status post CABG x2 in situ NIEVES to LAD, Ao ro RSVG to diagonal, radial MV repair, maze, ANANT clip 07/11/24
-remains intubated, sedated
-CI 1.78
-on dobut @3, levo @2. wean as able
-currently in paced rhythm on review of tele. was in ectopic atrial rhythm with HRs in 30-40s immediately postop. will follow
-had PAF preop. will need OAC once deemed safe to resume from surgical standpoint. would continue amiodarone post operatively
-follow volume status, required diuresis preop
-d/w CT surgery, nursing
Progress Note - Energy Conservation Director
Subjective
Date of Service: July 11, 2024
intubated, sedated
Objective
Labs:
07/11/24 16:21
Labs
Hgb Cancelled 07/11/24 16:21
Hct Cancelled 07/11/24 16:21
Plt Count 276 10^3/uL (130-400) 07/08/24 02:32
PT 16.9 Sec (11.4-14.6) H 07/05/24 05:27
INR 1.39 07/05/24 05:27
APTT 85.3 Sec (23.4-35.0) H 07/10/24 03:56
Sodium 135 mmol/L (135-145) 07/10/24 03:56
Potassium 3.8 mmol/L (3.5-5.1) 07/10/24 03:56
BUN 14 mg/dl (9-20) 07/10/24 03:56
Creatinine 0.8 mg/dL (0.7-1.3) 07/10/24 03:56
Glucose 121 mg/dl (70-99) H 07/10/24 03:56
Vital Signs and I&O:
Vital Signs
Temp Pulse Resp BP Pulse Ox
97.6 F 60 20 113/68 96
07/11/24 13:00 07/11/24 06:30 07/11/24 05:27 07/11/24 05:27 07/11/24 13:31
Vital Signs
Temp Pulse Resp BP Pulse Ox
97.6 F 60 20 113/68 96
07/11/24 13:00 07/11/24 06:30 07/11/24 05:27 07/11/24 05:27 07/11/24 13:31
Intake & Output
07/09/24 07/10/24 07/11/24 07/12/24
07:59 07:59 07:59 07:59
Intake Total 1300 / 1300 280 / 280 88.4 / 88.4
Output Total 2975 / 2975 2100 / 2100 3490 / 3490 120 / 120
Balance -1675 / -1675 -2100 / -2100 -3210 / -3210 -31.6 / -31.6
Physical Exam
Physical Exam
GEN: No distress, intubated, sedated
HEENT: supple, mmm
LUNGS: CTA B/L, no wheezes/rales
CV: Reg, S1/S2, no murmur
ABD: soft, BS+
EXT: No cyanosis, clubbing, edema
NEURO: sedated
SKIN: Warm, pink, dry. No rash. Sternotomy incision c/d/i
[2024-07-11 13:39] LABS: Blood Urea Nitrogen 16 mg/dl (9-20); Estimated Creatinine Clearance 98 ml/min; Glucose 136 mg/dl (70-99); Magnesium 3.8 mg/dl (1.6-2.3)
[2024-07-11 14:09] LABS: Glucose - Point of Care 159 mg/dl (70-99)
[2024-07-11 14:17] LABS: Hemoglobin 11.9 g/dL (13.0-18.0); Platelet Count 147 10^3/uL (130-400)
[2024-07-11] MEDS: DILAUDID 0.5 MG IV (14:29)
[2024-07-11 15:03] LABS: Glucose - Point of Care 159 mg/dl (70-99)
[2024-07-11 15:57] LABS: B.E. -0.2 mmol/L; HCO3 24.8 mmol/L (21-28); O2 Saturation % 94.9 % (94-98); PCO2 41 mmHg (35-48); PO2 68 mmHg (83-108); pH 7.39 (7.35-7.45)
[2024-07-11 16:02] LABS: Hematocrit 37.6 % (39.0-52.0); Hemoglobin 13.2 g/dL (13.0-18.0); Platelet Count 158 10^3/uL (130-400)
[2024-07-11 16:04] LABS: Glucose - Point of Care 159 mg/dl (70-99)
--- NOTE | 2024-07-11 16:52 | PTCARENOTE ---
Patient extubated at 1620, tolerated well. Satting 93% on 6LNC. No reports of pain at this time.
[2024-07-11 17:03] LABS: Glucose - Point of Care 155 mg/dl (70-99)
[2024-07-11] MEDS: ROXICODONE 2.5 MG PO (18:12)
[2024-07-11] MEDS: LOW STRENGTH ASPIRIN 81 MG PO (18:12)
[2024-07-11 19:06] LABS: Glucose - Point of Care 151 mg/dl (70-99)
[2024-07-11] MEDS: SENOKOT-S 1 TABLET PO (19:09)
[2024-07-11] MEDS: ANCEF 5 IV (19:09)
--- NOTE | 2024-07-11 20:00 | PTCARENOTE ---
Care of patient continued. Patient c/o of some sternal pain and pressure, 2.5 mg Oxycodone given, see MAR. Patient sleepy and dozing intermittently between care. Patient tolerating sips of water with PO medication and ice chips. Family at bedside,
education provided about plan for the evening. Patient and family in agreement. Assessment of needs ongoing.
[2024-07-11] MEDS: DILAUDID 0.25 MG IV ×2 (20:09→23:43)
[2024-07-11 20:29] VITALS: BP 103/62
--- NOTE | 2024-07-11 20:30 | PTCARENOTE ---
Report received from Luis Angel, RNs. Walking rounds done. Pt assessed at 1999. Pt awake oriented to person, place, purpose. Speech clear. moving all extremities equally. Pt on 6L/NC. Sats 90-91% CDB and IS encouraged. IS peak ~ 750 mls. BBS
present. Decreased to B bases.
CTs x 3, all to -20 cm suction (see flowsheets). Q 1 hr outputs recorded. Pt with AV epicardial pacing wires. AV paced 100% at 70 bpm. Dobutamine gtt infusing at 3 mcg/kg/min. CI 2.14. Audible heart tones. For pulse and wound assessments, see
flowsheets. Belly soft, nontender. Hypoactive BS x 4. Echeverria to drain, clear, yellow urine. Q1hr UO recorded.
Pt c/o 8/10 sternal pain, tightness. Dilaudid 0.25 mg IV given for pain.
PA in to see and assess pt.
[2024-07-11 21:00] VITALS: BP 104/60
[2024-07-11 21:02] LABS: Glucose - Point of Care 135 mg/dl (70-99)
[2024-07-11] MEDS: TYLENOL 1000 MG PO (21:08)
[2024-07-11] MEDS: NEURONTIN 100 MG PO (21:08)
[2024-07-11] MEDS: FLEXERIL 5 MG PO (21:09)
--- NOTE | 2024-07-11 21:55 | PTCARENOTE ---
RT at bedside offering patient CPAP for bed. Patient refused d/t the full face mask. Switched to 9LPM midflow nasal cannula, satting 92-93%. Patient reported some pain relief with Flexeril PRN and scheduled medications, however stated he feels
anxious at this time. PA aware.
[2024-07-11 22:00] VITALS: BP 108/67
[2024-07-11] MEDS: CALCIUM CHLORIDE 10% SYRINGE 60 MG IV (22:00)
[2024-07-11 22:05] LABS: Glucose - Point of Care 133 mg/dl (70-99)
[2024-07-11 23:00] VITALS: BP 119/61
[2024-07-11 23:11] LABS: Glucose - Point of Care 113 mg/dl (70-99)
[2024-07-11 23:53] LABS: Glucose - Point of Care 123 mg/dl (70-99)
[2024-07-12] VITALS (32 sets, daily range): BP systolic 89–148; BP diastolic 45–80; BMI 34.4
[2024-07-12 01:20] LABS: Glucose - Point of Care 111 mg/dl (70-99)
--- NOTE | 2024-07-12 01:30 | PTCARENOTE ---
Repeat CI 2.55. Dobutamine gtt remains at 3 mcg/kg/min.
Pt repositioned onto side at ~ 2330. Pt with increased pain, 08/07. Dilaudid 0.25 mg IV given for c/o pain at 2343.
Pt able to expectorate small, thick, munoz sputum with CDB. Sats up to 97% on 9L/midflow. Midflow weaned to 8L.
remaining at bedside overnight.
[2024-07-12] MEDS: ROXICODONE 5 MG PO ×4 (03:14→21:11)
[2024-07-12] MEDS: ANCEF 5 IV ×2 (03:15→12:08)
[2024-07-12 03:24] LABS: Glucose - Point of Care 116 mg/dl (70-99)
[2024-07-12 04:31] LABS: Ionized Calcium 1.18 mMOL/L (1.15-1.33)
[2024-07-12 04:33] LABS: Mixed Venous O2 Saturation 75.4 %
[2024-07-12 04:36] LABS: Hemoglobin 11.7 g/dL (13.0-18.0); Mean Corp Hgb Conc. 34.4 g/dL (33.0-37.0); Mean Corpuscular Hgb 31.2 pg (27.0-31.0); Mean Corpuscular Volume 90.7 fL (80.0-94.0); Mean Platelet Volume 8.8 fL (7.4-10.4); Platelet Count 165 10^3/uL (130-400); Red Blood Cell Count 3.75 10^6/uL (4.70-6.10); Red Cell Dist. Width 12.7 % (11.5-14.5); White Blood Cell Count 11.1 10^3/uL (4.8-10.8)
[2024-07-12 04:46] LABS: INR 1.24; PT 15.5 Sec (11.4-14.6)
[2024-07-12] MEDS: DILAUDID 0.5 MG IV (04:51)
[2024-07-12 05:00] LABS: Blood Urea Nitrogen 19 mg/dl (9-20); Calcium 8.8 mg/dl (8.4-10.2); Carbon Dioxide 22 mmol/L (22-30); Chloride 105 mmol/L (98-107); Estimated Creatinine Clearance 110 ml/min; Glucose 107 mg/dl (70-99); Magnesium 2.6 mg/dl (1.6-2.3); Potassium 4.4 mmol/L (3.5-5.1); Sodium 137 mmol/L (135-145); eGFR > 60.00
[2024-07-12 05:11] LABS: Glucose - Point of Care 115 mg/dl (70-99)
--- NOTE | 2024-07-12 05:30 | PTCARENOTE ---
Lab work drawn and sent. EKG done with PA at bedside. Intrinsic rhythm is Junctional, rate-50's with prolonged QT. CXR done this am. Pt with increased c/o pain at ~0300. Oxycodone 5 mg po given for sternal pain. Continued pain and elevated BP at
~3619-8901. Discussed with PA. PA saw pt at bedside. Dilaudid 0.5 mg IV given for sternal pain. O2 weaned to 7L/midflow. Sats on 7L are 95%.Repeat CI 2.88. Dobutamine gtt remains at 3 mcg/kg/min. Glycemic protocol followed.
[2024-07-12 06:19] LABS: Glucose - Point of Care 118 mg/dl (70-99)
--- NOTE | 2024-07-12 06:20 | W.PN.CT ---
Today's Communication / Plan
-
Plan:
-No major issues overnight. Hemodynamically and neurologically intact
-Successfully extubated on 07/11/24 @ 1630
-Noted to be in junctional bradycardia in 40's postop, required A/V pacing @ 70 bpm. Junctional @ 55 bpm this AM, remains A/V paced @ 70 bpm
-Weaned of Levophed gtt, remains on dobutamine gtt @ 3 mcg/kg/min, and on insulin gtt per protocol
-Last CI 2.88, MVO2 75.4, U/O since OR 760 mL
-Monitor chest tube output: 2 meds 165/275, L pleural 85/110
-Cont. current meds (ASA, Crestor; Amiodarone and Lopressor are on hold while on dobutamine; will add Plavix for vein graft; will eventually require resumption of Eliquis for a-fib hx)
-Wean off dobutamine gtt as tolerated
-Will transition off insulin gtt tomorrow since pt is a diabetic
-Telemetry phase once of insulin and dobutamine gtt
-D/C swan and a-line once off dobutamine gtt
-D/C mares later today
-Maintain temporary PW (will pull likely tomorrow)
-Maintain cordis (will d/c on POD#3)
-Wean off of O2 as tolerated
-Encourage use of IS
-OOB into chair/Ambulate
Assessment / Plan
-
Assessment:
-S/P Sternotomy with aortic and bicaval cannulation/CABG x 2 [in situ NIEVES to LAD, Ao to RSVG to diagonal]/R EVH/Radical mitral valve repair [triangular resection of P2, primary repair of P2 and P1, closure of cleft of P2 and P3, plication of the
free margin at A2 A3, single [place]-Jonathan cord to the posterior medial papillary muscle head to the P2 segment, 34 mm band annuloplasty]/Left atrial maze using cryo ablation/Left atrial appendage exclusion [35 mm clip, additional suture closure of the
internal orifice was required], by Dr. Maldonado, 07/11/24, pod#1
-Severe eccentric MR secondary to prolapse as well as flail with torn cords at the P2 scallop
-LVEF 60-65% per intraop DOROTHY
-Moderate dilated left atrium
-Single vessel CAD (70% mid/origin of diag) per cath 07/07/24
-New onset Atrial fibrillation (was on Eliquis)
-Acute on chronic Diastolic CHF with associated respiratory failure from volume overload, LVEDP was elevated, right heart filling pressures were also elevated
-Small b/l pleural effusion with adjacent atelectasis
-HTN
-HLD
-T2DM (hgb A1C 6.0, diet controlled)
-Class 2 obesity (BMI 35.2)
-ARGENIS (uses CPAP)
-COPD (pt denies)
-B/L knee arthroscopy
-S/p Cholecystectomy
-Acute postop blood loss/Anemia (stable without transfusion)
-Acute pre and postop atelectasis
-Acute postop hypovolemia with subsequent hypervolemia
-Acute postop hypoxemia (PO2 60's per ABG)
-Acute postop junctional rhythm in the 40's (requiring A/V pacing @ 70 bpm)
Discussed patient care with: Cardiology, Nursing, Respiratory Therapy, Pharmacy and Care Team
Subjective
Procedure
S/P Sternotomy with aortic and bicaval cannulation/CABG x 2 [in situ NIEVES to LAD, Ao to RSVG to diagonal]/R EVH/Radical mitral valve repair [triangular resection of P2, primary repair of P2 and P1, closure of cleft of P2 and P3, plication of the
free margin at A2 A3, single [place]-Jonathan cord to the posterior medial papillary muscle head to the P2 segment, 34 mm band annuloplasty]/Left atrial maze using cryo ablation/Left atrial appendage exclusion [35 mm clip, additional suture closure of the
internal orifice was required], by Dr. Maldonado, 07/11/24
-
Date of Service: July 12, 2024
Pt c/o incisional pain, otherwise feels well
Objective Data
-
Lab Results
07/12/24 04:00
07/12/24 03:59
PT 15.5 Sec (11.4-14.6) H 07/12/24 03:59
INR 1.24 07/12/24 03:59
APTT 35.5 Sec (23.4-35.0) H 07/11/24 12:59
Vital Signs
Vital Signs
Temp Pulse Resp BP Pulse Ox
98.1 F 70 24 113/59 96
07/12/24 05:00 07/12/24 05:15 07/12/24 05:15 07/12/24 05:00 07/12/24 05:15
CT Intake/Output/Weight
07/11/24 07/11/24 07/12/24
06:59 18:59 06:59
Intake Total 280 / 280 310.9 / 1237.5 926.6 / 1237.5
Output Total 900 / 3490 555 / 1100 545 / 1100
Balance -620 / -3210 -244.1 / 137.5 381.6 / 137.5
SaO2: 94 (6L)
Physical Exam
-
General: Awake, Oriented and AOx3
Cardiovascular: Regular rate & rhythm, No Murmurs and No Gallop
Respiratory: Decreased Breath Sounds
Sternum: Stable
Incision: Clean, Dry, Intact and Dressing Intact
Extremities: No Edema
Data Reviewed
-
Lab Results: Results Reviewed
Medications: Active Meds Reviewed
Chest X-Ray: Report Reviewed and Image Reviewed
ECG: Report Reviewed and Image Reviewed
[2024-07-12] MEDS: TYLENOL 1000 MG PO ×3 (07:00→21:11)
[2024-07-12 07:05] LABS: Glucose - Point of Care 112 mg/dl (70-99)
[2024-07-12] MEDS: NOVOLIN R INSULIN INFUSION 100 IV (07:06)
--- NOTE | 2024-07-12 08:10 | W.PN.CARDCBS ---
Today's Communication / Plan
-
Cont post op care
Impression / Plan
-
.
PCP: [facility] in [place]
Auto Finance Sales Rep: none, seen initially by Dr Drew
Impression:
Status post CABG x2 in situ NIEVES to LAD, Ao ro RSVG to diagonal, radial MV repair, maze, ANANT clip 07/11/24
Atrial fibrillation-new diagnosis
Acute heart failure-new diagnosis
Severe MR with torn cordae post leaflet.
Small b/l pleural effusions
Mid LAD stenosis involving diagonal branch by cath 07/07/24
DM-2, HbA1c 6.
HTN
Hyperlipidemia
ARGENIS on CPAP
COPD
NSVT on telemetry vs aberrancy
Overweight
Daily alcohol
EKG personally reviewed 07/02/24 2356: NSR, iRBBB
EKG personally reviewed 07/02/24 1608: afib with RVR and iRBBB, HR 115
Echo Jul 03 2024: EF 65-70% with severe eccentric MR.
Plan:
64-year-old man presenting in decompensated heart failure found to have severe mitral regurgitation due to torn chordae s/p CABG x2 in situ NIEVES to LAD, Ao ro RSVG to diagonal, radial MV repair, maze, ANANT clip 07/11/24
Cont to wean low-dose dobutamine over next [address] surgery
Gentle IV diuresis as bp will tolerate.
Postop ECG with ectopic atrial bradycardia, remains AV paced at 70 bpm
Beta-tushar on hold
was in ectopic atrial rhythm with HRs in 30-40s immediately postop.
Cont aspirin/Plavix and statin
Cont Amio given recent diagnosis of atrial fibrillation
Now status post left atrial appendage clip, would consider oral anticoagulation when safe from a surgical standpoint
was in ectopic atrial rhythm with HRs in 30-40s immediately postop. will follow
Discussed with CT surgery
Progress Note - Auto Finance Sales Rep
Subjective
Date of Service: July 12, 2024
Pt seen and examined. No complaints. No chest pain or shortness of breath.
Objective
Labs:
07/12/24 04:00
07/12/24 03:59
Labs
Hgb 11.7 g/dL (13.0-18.0) L 07/12/24 04:00
Hct 34.0 % (39.0-52.0) L 07/12/24 04:00
Plt Count 165 10^3/uL (130-400) 07/12/24 04:00
PT 15.5 Sec (11.4-14.6) H 07/12/24 03:59
INR 1.24 07/12/24 03:59
APTT 35.5 Sec (23.4-35.0) H 07/11/24 12:59
Sodium 137 mmol/L (135-145) 07/12/24 03:59
Potassium 4.4 mmol/L (3.5-5.1) 07/12/24 03:59
BUN 19 mg/dl (9-20) 07/12/24 03:59
Creatinine 0.8 mg/dL (0.7-1.3) 07/12/24 03:59
Glucose 107 mg/dl (70-99) H 07/12/24 03:59
Vital Signs and I&O:
Vital Signs
Temp Pulse Resp BP Pulse Ox
97.9 F 70 15 111/58 96
07/12/24 06:00 07/12/24 07:30 07/12/24 07:30 07/12/24 07:00 07/12/24 07:30
Vital Signs
Temp Pulse Resp BP Pulse Ox
97.9 F 70 15 111/58 96
07/12/24 06:00 07/12/24 07:30 07/12/24 07:30 07/12/24 07:00 07/12/24 07:30
Intake & Output
07/10/24 07/11/24 07/12/24 07/13/24
06:59 06:59 06:59 06:59
Intake Total 280 / 280 1291.6 / 1325.7 34.1 / 34.1
Output Total 2099 3490 / 3490 1145 / 1145
Balance -2099 / -2099 -3210 / -3210 146.6 / 180.7 34.1 / 34.1
Physical Exam
Physical Exam
General: No acute distress, AAOX3
Neck: Negative JVD
Heart: Regular, Negative S3 positive S1/S2, Negative S4, No murmur
Lungs: CTA b/l, negative wheezes/rales/rhonchi
Abd: Positive BS, NT/ND, neg rebound/rigidity/guarding
Ext: Negative cyanosis/clubbing/edema
Neuro: nonfocal
--- NOTE | 2024-07-12 08:15 | PTCARENOTE ---
Assumed care of patient. Walking rounds completed with previous RN. Pt assessed while he was lying in the bed. Pt rates sternal pain 6/10-see MAR. Pt denies nausea, and shortness of breath. DEMARCO with equal strength in all extremities. 100% AV paced
via epicardial AV wires. CT PA changed pacing to AAI 80/15. Pt tolerating A pacing. Heart tones audible. BP stable CI 3.16. PA pressures 30s/10s. CVP 6. Bilateral radial and DP pulses palpable. No edema noted. POX 95% on 7L, titrated to 5L NC POX
96%. Lungs diminished in the bases. IS encouraged-1250mL achieved. No cough noted. Left pleural chest tube to -20cm suction draining serosanguineous fluid. Mediastinal x2 chest tubes y-sited to 1 atrium to -20cm suction draining serosanguineous
fluid. No air leaks, tidaling, crepitus noted. Abdomen soft, round, nontender. +BS. Tolerating clear liquid diet. Echeverria draining josemanuel urine, inadequate amounts-CT PA notified. Sternal incision approximated with skin glue, ecchymotic, STORAGE MANAGEMENT CONSULTANT. Chest
tube dressing CDI. Right groin puncture site ecchymotic, approximated with skin glue. Right SVG harvest approximated with skin glue, covered with RENEE-CDI. Right IJ cordis and swan floated to 46cm. Right radial frederick intact with appropriate waveform.
Left wrist 20g PIV intact infusing insulin per Critical Care Glycemic Protocol. All lines flushed, leveled, and zeroed. Dobutamine infusing at 3mcg/kg/min, per CT PA, decrease to 2mcg/kg/min. See MAR for medication administration. See worklist for
complete nursing assessment. Plan of care reviewed and patient in agreement.
[2024-07-12 08:18] LABS: Glucose - Point of Care 99 mg/dl (70-99)
--- NOTE | 2024-07-12 08:21 | W.PN.INTV ---
Today's Communication / Plan
Recommendations
Up OOB as tolerated
Removal of chest tubes per CT surgery team
Continue with insulin drip and wean as tolerated with goal BG 140�180
Wean off dobutamine as tolerated
Goal SpO2 >90-94%
Check procalcitonin in the morning and consider starting ABx if >0.5
Outpatient pulmonary follow-up will be arranged for repeat CT chest to follow-up resolution of RUL patchy opacities
Workers' Compensation Claims Examiner service will continue to follow along while patient remains in the CVICU; once transferred to CVICU�telemetry then we will sign off at that time.
Assessment
-
Assessment: 64-year-old male with a past medical history of DM type II, hypertension, ARGENIS on CPAP + hyperlipidemia who presented on 07/02/2024 with worsening SOB with activity x 1 week. He denies chest pain, palpitations or dizziness. [facility] and CXR showed pleural effusion (unclear which side). He is also found to have irregular heartbeat so was sent to the ER for further evaluation. Initial EKG showed atrial fibrillation with RVR with ventricular rate of
115 bpm. Initial vitals showed he was afebrile to 97.9 �F, breathing at 16 breaths/min, BP 138/94 and saturating 97% on room air. Initial vitals showed Hb 13.7, proBNP 1180, and initial troponin negative at <0.12. Initial CXR showed mild
pulmonary edema with small bilateral pleural effusions with adjacent atelectasis. He was given 20 mg Cardizem, 40 mEq potassium +60 mg Lasix and admitted to telemetry under the hospitalist service. Cardiology was consulted, he is started on
diuresis and echo showed severe eccentric MR with preserved LVEF 65-70% with normal regional wall motion. CT surgery was consulted. DOROTHY was performed on 07/04/2024 showing severe eccentric anteriorly directed MR with partial flail posterior MV
leaflet with torn chordae at approximately P2. Left heart catheterization performed on 07/07 showed 70% mid LAD stenosis with elevated LV filling pressures with LVEDP 20 mmHg and +4 mitral regurgitation. Surgical revascularization plus valve
repair was discussed with the patient including its risks and benefits. Eliquis was stopped, heparin drip was started and Lasix was continued. On 07/11/2024, he underwent CABG x 2 with radical mitral valve repair, ANANT maze using cryoablation + left
atrial appendage exclusion with a 35mm clip. Patient underwent procedure without any immediate complications and was transferred to the CVICU postoperatively. Workers' Compensation Claims Examiner services consulted for additional management/recommendations.
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
Impression:
#CAD involving mid-LAD s/p CABG x 2 (POD#1)
#Acute respiratory failure with hypoxia with new onset atrial fibrillation due to mitral valve insufficiency s/p radical mitral valve repair + ANANT-exclusion + LA-MAZE (POD #1)
#Abnormal urinalysis with trace leukocyte esterase and few urine bacteria
#RUL patchy opacities seen on CT Chest from 07/04/2024
#ARGENIS on CPAP
#DM type II
#HTN
#HLD
Plan:
Patient successfully extubated on 07/11/2024 to nasal cannula. He is now on room air breathing comfortably saturating 94%
prn nebulized bronchodilators
Encourage incentive spirometer use 10x/hr for at least 4 hrs a day
Pressors/antihypertensive/inotropes/diuretics will be provided as needed
Removal of R-IJ cordis per CT surgery team
Maintain MAP>65
Replete electrolytes with K>4, Mg>2
Monitor chest tube output (mediastinal x 2+ left pleural chest tube x 1)
Monitor hemoglobin
Monitor platelet count and coags
Transfuse blood products as needed to maintain Hb>7g/dL, plt>50k (given post-operative status)
CT surgery managing chest tubes
Given RUL patchy opacities seen on CT chest from 07/04/2024, check procal tomorrow AM, and if >0.5 then consider starting ABx.
Monitor blood sugar to maintain euglycemia with goal BG 140-180
Insulin drip per protocol
Aspiration precautions
DVT prophylaxis
Early nutrition
Early mobilization
Of note, he had several patchy opacities seen in his right upper lobe from CT chest from 07/04/2024. Imaging with CT chest without contrast should be repeated in about 4-6 weeks to follow-up this to resolution.
Patient continued on insulin drip + dobutamine, and remains CVICU status. Once weaned off drips and downgraded to CVICU�telemetry, we will sign off at that time. Workers' Compensation Claims Examiner services will continue to follow along while patient remains in CVICU.
Critical care statement: A total of 38 minutes of critical care time was provided for this patient today. This includes management of ventilator, spontaneous breathing trial, arterial blood gases, pressors, of unstable vital signs, evaluation of the
patient at bedside, reviewing the patient's pertinent medical records including radiographs, microbiology, laboratory evaluations, and discussion with primary team and critical care nursing.
Data:
CXR 07/12/2024:
Since prior examination, the endotracheal tube has been discontinued. Left chest tube and multiple mediastinal tubes remain in place as does a right internal jugular Schoenchen-Ruben catheter. The cardiomediastinal margins are stable. No pneumothorax
identified. No significant change in mild left lower lobe atelectasis.
CT Chest/Abdomen/Pelvis 07/04/2024:
1. Small bilateral pleural effusions with adjacent atelectatic changes as above, right greater than left. Small amount of abnormal peribronchovascular groundglass and interstitial opacity in the right upper lobe which could be related to either
edema or infection.
2. Coronary and aortic atherosclerosis. Negative for aortic aneurysmal dilation.
3. No acute intra-abdominal process.
Subjective Dataa
Subjective Data
Date of Service:
Date of Service: July 12, 2024
Chief Complaint: Workers' Compensation Claims Examiner Follow Up
Subjective:
Patient seen and evaluated today at bedside. Currently on room air breathing comfortably, saturating 94%. BP 123/64, and heart rate 80. Mediastinal chest tubes x 2+ left pleural chest tube x [address]. Currently on insulin drip at 4 units/hr
and dobutamine at 1.5mcg/kg/min. He has some postoperative chest discomfort, but denies shortness of breath, MARIE, abdominal pain, nausea, fevers or chills.
Review of Systems
General: Other (Negative unless mentioned above)
Objective Data
Data Reviewed
Vital Signs / I&O / Oxygen:
Vital Signs
Temp Pulse Resp BP Pulse Ox
97.5 F 80 19 127/57 97
07/12/24 09:00 07/12/24 09:00 07/12/24 09:00 07/12/24 09:00 07/12/24 09:00
Intake and Output
07/11/24 07/12/24 07/13/24
06:59 06:59 06:59
Intake Total 280 / 280 1291.6 / 1325.7 108.9 / 108.9
Output Total 3490 / 3490 1145 / 1145 105 / 105
Balance -3210 / -3210 146.6 / 180.7 3.9 / 3.9
SaO2 [CPAP] 92
SaO2 [SIMV] 93
SaO2 97
Nasal Cannula flow liters per 5
minute
Physical Exam
General: Respiratory Distress (negative), Comfortable, Pain (Postoperative chest discomfort) and Chills (negative)
HEENT: Normocephalic and Anicteric
Cardiovascular: S1-S2 and Peripheral Edema (negative)
Respiratory: Wheeze (negative), Rhonchi (negative), Non-Labored Respirations and Other (Coarse breath sounds heard bilaterally)
GI: Soft, Non Distended, Non Tender and Normal Bowel Sounds
Neurology: AO x 3 and Tremors (negative)
Skin: Warm, Dry and Jaundice (negative)
Labs/Micro/Reports
Lab Data
07/12/24 04:00
07/12/24 03:59
Laboratory Results
07/11/24 07/11/24 07/12/24
12:59 15:37 03:59
PT 18.0 H 15.5 H
INR 1.51 1.24
APTT 35.5 H
pH 7.34 L 7.39
pCO2 46 41
pO2 67 L 68 L
HCO3 24.8 24.8
O2 Delivery Level Vent
Microbiology
07/04/24 19:25 Blood/Venous Blood Culture - Final
No Growth - Final Report
07/04/24 13:57 Blood/Venous Blood Culture - Final
No Growth - Final Report
[2024-07-12] MEDS: MAGNESIUM OXIDE PO (08:42)
[2024-07-12] MEDS: LIDOCAINE 4% PATCH 1 PATCH TOPICAL (08:55)
[2024-07-12] MEDS: PROTONIX 40 MG PO (08:56)
[2024-07-12] MEDS: NEURONTIN 100 MG PO ×3 (08:56→21:12)
[2024-07-12] MEDS: SENOKOT-S 1 TABLET PO ×2 (08:56→20:10)
[2024-07-12] MEDS: VITAMIN C 500 MG PO (08:56)
[2024-07-12] MEDS: FLUSH (NSS) 1 FLUSH IV (08:56)
[2024-07-12] MEDS: LASIX 20 MG IV ×2 (08:56→20:09)
[2024-07-12] MEDS: CRESTOR 5 MG PO (08:56)
[2024-07-12] MEDS: FEOSOL 325 MG PO (08:57)
[2024-07-12] MEDS: BACTROBAN 2% OINTMENT 1 APPLIC NASAL ×2 (08:57→20:11)
[2024-07-12] MEDS: LOW STRENGTH ASPIRIN 81 MG PO (08:57)
[2024-07-12] MEDS: PLAVIX 75 MG PO (08:57)
[2024-07-12] MEDS: NOVOLOG FLEXPEN 4 UNITS SC ×3 (09:31→17:32)
[2024-07-12 09:32] LABS: Glucose - Point of Care 124 mg/dl (70-99)
[2024-07-12] MEDS: KCL 20 MEQ PO ×2 (09:32→20:10)
[2024-07-12 10:21] LABS: Mixed Venous O2 Saturation 77.2 %
[2024-07-12] MEDS: NSS IV (11:12)
--- NOTE | 2024-07-12 11:45 | PTCARENOTE ---
Pt reassessed. VSS. 100% A-paced via temp pacer at 80bpm. BP stable. POX 96% on 4L, titrated to 2L NC, POX 94%. Surgical sites stable. Chest tube dressing changed, cleansed with CHG. [place] d/c per orders, new dressing applied to IJ cordis. Right
radial frederick d/c per orders. Hemostasis achieved, dressing applied. Pt assisted OOB with 2 assist. Denies dizziness. Remains on dobutamine 2mcg/kg/min and insulin gtt per Critical care Glycemic Protcol. Pt's at bedside.
[2024-07-12 11:51] LABS: Glucose - Point of Care 112 mg/dl (70-99)
[2024-07-12 12:51] LABS: Glucose - Point of Care 94 mg/dl (70-99)
[2024-07-12] MEDS: FERRLECIT 110 MG IV (13:58)
[2024-07-12 14:07] LABS: Mixed Venous O2 Saturation 65.7 %
[2024-07-12 15:10] LABS: Glucose - Point of Care 141 mg/dl (70-99)
[2024-07-12] MEDS: DOBUTREX 500 MG 250 IV (15:13)
[2024-07-12] MEDS: FLEXERIL 5 MG PO (15:13)
--- NOTE | 2024-07-12 15:15 | PTCARENOTE ---
Pt reassessed. VSS. 100% A-paced via temp wires. Pacer paused, junctional with PACs noted on tele, CT PA notified. BP stable 119/66. POX 95% on RA. Surgical sites stable. CT output WNL. Echeverria d/c per orders. Dobutamine titrated to 1.5mcg/kg/min per
orders. Insulin gtt continues to infuse per critical care glycemic protocol. No other acute changes from previous assessment.
--- NOTE | 2024-07-12 15:26 | W.PN.ANS.POP ---
Anesthesia Post Operative
- Anesthesia Post Op Note
Vital Signs Stable-See Nursing Note: Yes
Airway Patent: Yes
Adequate Pain Control: Yes
Change in Mental Status: No
Current Postoperative Nausea & Vomiting: No
Anesthesia Complications: No
General Anesthetic Recall: No
Unplanned Admission: No
Post Op Hydration Adequate: Yes
[2024-07-12 17:12] LABS: Glucose - Point of Care 107 mg/dl (70-99)
[2024-07-12 19:19] LABS: Glucose - Point of Care 134 mg/dl (70-99)
[2024-07-12] MEDS: MAGNESIUM OXIDE 500 MG PO (20:10)
--- NOTE | 2024-07-12 20:30 | PTCARENOTE ---
Report received from GOOD Carvalho. Pt assess, VS done. See flowsheet. Pt awake, alert, oriented x 4. Speech clear. Moves all extremities equally. Pt on CPAP. Room air. Sats 91%. 2L/NC placed on pt. Sats up to 95-97%. BBS present. Decreased B bases.
CDB and IS encouraged. IS peak 1250 mls. CTs x 3 to -20 suction. Pt A paced at 80. V wire also attached to pacer. Audible heart tones. Normotensive BPs, see flowsheet. For pulse and wound assessments, see flowsheet. Belly round, soft, large/obese.
Normoactive bs x 4. Denies passing flatus. Pt due to void. Lasix 20 mg IV ordered and given with KCL 20 meq po as ordered. Glycemic protocol followed. at bedside. Pt and updated on ongoing plan of care for evening/am.
[2024-07-12 21:19] LABS: Glucose - Point of Care 89 mg/dl (70-99)
--- NOTE | 2024-07-12 21:35 | PTCARENOTE ---
Addendum entered by Jamarcus Stallworth RN 07/13/24 00:37:
Additionally, pt give Oxycodone 5 mg po for c/o moderate to severe sternal pain. Tylenol and gabapentin given per scheduled orders. Ongoing assessment of pain.
Addendum entered by Jamarcus Stallworth RN 07/13/24 00:36:
Additionally, pt give Oxycodone 5 mg po for c/o modeatsternal pain.
Original Note:
Pt voided 300 mls clear, yellow urine in urinal after receiving Lasix 20 mg IV. Pt given CHG bath. Face washed. New gown applied. Pt had brushed teeth with . Ed, PA in to speak with pt and family. went home for evening. Glycemic protocol
maintained.
[2024-07-12 23:47] LABS: Glucose - Point of Care 127 mg/dl (70-99)
[2024-07-12] MEDS: CORDARONE 518 MG IV (23:56)
[2024-07-13] VITALS (16 sets, daily range): BP systolic 93–142; BP diastolic 49–124; BMI 35.3
--- NOTE | 2024-07-13 00:31 | PTCARENOTE ---
Addendum entered by Jamarcus Stallworth RN 07/13/24 00:36:
Of note, dobutamine gtt stopped per order at 2300 after pt went into AF.
Original Note:
Pt noted to be in AF at 2249. Rate 78-100's. See VS for BPs. Normotensive. PA aware. Amiodarone gtt started at 0000 at 0.5 mg/min. Temp pacer Atrial backup rate set at 40 per PA. Glycemic protocol maintained. Pt on 2L/NC. Sats 95-97%. Sleeping
intermittently.
[2024-07-13 01:31] LABS: Glucose - Point of Care 115 mg/dl (70-99)
[2024-07-13] MEDS: ROXICODONE 5 MG PO ×3 (01:34→20:17)
[2024-07-13] MEDS: MUCINEX 600 MG PO ×3 (01:52→20:16)
[2024-07-13 03:17] LABS: Glucose - Point of Care 108 mg/dl (70-99)
--- NOTE | 2024-07-13 03:49 | RESPNOTE ---
Added 2 lpm O2 through patients home CPAP machine
[2024-07-13 05:21] LABS: Glucose - Point of Care 86 mg/dl (70-99)
[2024-07-13 05:22] LABS: Hematocrit 31.9 % (39.0-52.0); Mean Corp Hgb Conc. 34.5 g/dL (33.0-37.0); Mean Corpuscular Hgb 31.3 pg (27.0-31.0); Mean Corpuscular Volume 90.9 fL (80.0-94.0); Mean Platelet Volume 8.9 fL (7.4-10.4); Platelet Count 153 10^3/uL (130-400); Red Blood Cell Count 3.51 10^6/uL (4.70-6.10); Red Cell Dist. Width 12.7 % (11.5-14.5); White Blood Cell Count 11.1 10^3/uL (4.8-10.8)
--- NOTE | 2024-07-13 05:37 | W.PN.CT ---
Today's Communication / Plan
-
Plan:
-No major issues overnight. Hemodynamically and neurologically intact
-Pt went into a-fib with RVR (110 bpm) @ 2300 last night 07/12 while on Dobutamine gtt @ 1.5 mcg/kg/min
-Dobutamine gtt d/c'd following a-fib
-Started on Amiodarone gtt subsequently @ 0.5 mg/min with temporary PW @ backup @ 35 bpm
-BP noted to be soft off Dobutamine. BB and PO Amiodarone are on hold as pt was noted to be in junctional rhythm in the 50's requiring A/V pacing @ 80 bpm
-Current a-fib on Amiodarone gtt is controlled 60-90's with intermittent pacing @ 35 bpm
-Cont. current meds (ASA, Plavix, Crestor, Amiodarone gtt; will eventually require resumption of Eliquis for a-fib hx)
-Consider d/c of chest tubes
-Will transition off insulin gtt today, and transfer to tele phase
-Maintain temporary PW
-Maintain cordis (will d/c on POD#3)
-Wean off of O2 as tolerated
-Encourage use of IS/CPAP machine during sleep
-Cont. gentle diuresis as BP allows
-OOB into chair/Ambulate
Assessment / Plan
-
Assessment:
-S/P Sternotomy with aortic and bicaval cannulation/CABG x 2 [in situ NIEVES to LAD, Ao to RSVG to diagonal]/R EVH/Radical mitral valve repair [triangular resection of P2, primary repair of P2 and P1, closure of cleft of P2 and P3, plication of the
free margin at A2 A3, single [place]-Jonathan cord to the posterior medial papillary muscle head to the P2 segment, 34 mm band annuloplasty]/Left atrial maze using cryo ablation/Left atrial appendage exclusion [35 mm clip, additional suture closure of the
internal orifice was required], by Dr. Maldonado, 07/11/24, pod#2
-Severe eccentric MR secondary to prolapse as well as flail with torn cords at the P2 scallop
-LVEF 60-65% per intraop DOROTHY
-Moderate dilated left atrium
-Single vessel CAD (70% mid/origin of diag) per cath 07/07/24
-New onset Atrial fibrillation (was on Eliquis)
-Acute on chronic Diastolic CHF with associated respiratory failure from volume overload, LVEDP was elevated, right heart filling pressures were also elevated
-Small b/l pleural effusion with adjacent atelectasis
-HTN
-HLD
-T2DM (hgb A1C 6.0, diet controlled)
-Class 2 obesity (BMI 35.2)
-ARGENIS (uses CPAP)
-COPD (pt denies)
-B/L knee arthroscopy
-S/p Cholecystectomy
-Acute postop blood loss/Anemia (stable without transfusion)
-Acute pre and postop atelectasis
-Acute postop hypovolemia with subsequent hypervolemia
-Acute postop hypoxemia (PO2 60's per ABG)
-Acute postop junctional rhythm in the 40's (requiring A/V pacing @ 70 bpm)
Discussed patient care with: Cardiology, Nursing, Respiratory Therapy, Pharmacy and Care Team
Subjective
Procedure
S/P Sternotomy with aortic and bicaval cannulation/CABG x 2 [in situ NIEVES to LAD, Ao to RSVG to diagonal]/R EVH/Radical mitral valve repair [triangular resection of P2, primary repair of P2 and P1, closure of cleft of P2 and P3, plication of the
free margin at A2 A3, single [place]-Jonathan cord to the posterior medial papillary muscle head to the P2 segment, 34 mm band annuloplasty]/Left atrial maze using cryo ablation/Left atrial appendage exclusion [35 mm clip, additional suture closure of the
internal orifice was required], by Dr. Maldonado, 07/11/24
-
Date of Service: July 13, 2024
Objective Data
-
Lab Results
07/13/24 05:12
PT 15.5 Sec (11.4-14.6) H 07/12/24 03:59
INR 1.24 07/12/24 03:59
APTT 35.5 Sec (23.4-35.0) H 07/11/24 12:59
Vital Signs
Vital Signs
Temp Pulse Resp BP Pulse Ox
99 F 79 16 102/66 97
07/13/24 05:00 07/13/24 05:00 07/13/24 05:00 07/13/24 05:00 07/13/24 05:[address] Intake/Output/Weight
07/12/24 07/12/24 07/13/24
06:59 18:59 06:59
Intake Total 980.7 / 1325.7 1053.5 / 1322.4 268.9 / 1322.4
Output Total 590 / 1145 585 / 1000 415 / 1000
Balance 390.7 / 180.7 468.5 / 322.4 -146.1 / 322.4
SaO2: 97 (2L)
Physical Exam
-
General: Awake, Oriented and AOx3
Cardiovascular: Regular rate & rhythm, No Murmurs, No Rub and No Gallop
Respiratory: Decreased Breath Sounds (at bases, otherwise clear)
Sternum: Stable
Incision: Clean, Dry, Intact and Dressing Intact
Extremities: No Edema
Data Reviewed
-
Lab Results: Results Reviewed
Medications: Active Meds Reviewed
Chest X-Ray: Report Reviewed and Image Reviewed
ECG: Report Reviewed and Image Reviewed
--- NOTE | 2024-07-13 05:38 | PTCARENOTE ---
Labs drawn and sent. EKG done. PA at bedside to see pt. Temp pacer set for backup rate 35. mA 5, sensitivity 0.4. Pt remains in AF, occ junctional beats, brief in 40-50's.
[2024-07-13 05:45] LABS: Blood Urea Nitrogen 22 mg/dl (9-20); Calcium 8.3 mg/dl (8.4-10.2); Carbon Dioxide 25 mmol/L (22-30); Chloride 99 mmol/L (98-107); Estimated Creatinine Clearance 99 ml/min; Glucose 88 mg/dl (70-99); Magnesium 2.4 mg/dl (1.6-2.3); Phosphorus 3.3 mg/dl (2.5-4.5); Potassium 4.4 mmol/L (3.5-5.1); Sodium 133 mmol/L (135-145); eGFR > 60.00
[2024-07-13 06:06] LABS: Procalcitonin 0.24 ng/ml (0.0-0.25)
[2024-07-13 06:56] LABS: Glucose - Point of Care 119 mg/dl (70-99)
[2024-07-13] MEDS: TYLENOL 1000 MG PO ×2 (07:01→22:59)
--- NOTE | 2024-07-13 08:00 | PTCARENOTE ---
Resumed care of patient from previous RN. walking rounds completed. VSS. OOB in chair at time of assessment. AAOx3. hearing aids in. AFIB on monitor, HR 60-70s. back up pacing wire present. set to 35/5. 95% Room air. IS 1250 [address]ls. CTs x 3 to -20
suction. draining mostly serous fluid. PA orders to d/c today. soft, large/obese. bs x 4. josemanuel urine into urinal. adequate amounts. Lasix 20 mg IV ordered and given. remains on insulin gtt per Glycemic protocol. Will continue to monitor.
--- NOTE | 2024-07-13 08:10 | W.PN.INTV ---
Today's Communication / Plan
Recommendations
Up OOB as tolerated
Insulin drip to be weaned off this afternoon, and then will transition to SQ insulin with goal BG 140�180
Goal SpO2 >90-94%
Procalcitonin negative; no need to start antibiotics at this time
Outpatient pulmonary follow-up will be arranged for repeat CT chest to follow-up resolution of RUL patchy opacities
Patient currently on insulin drip which will be weaned off this afternoon, and then will be downgraded to CVICU�telemetry status. Health And Safety Specialist/Pulmonary service will now sign off. Please reconsult if there are any additional questions/concerns, or
if patient's respiratory status deteriorates.
Assessment
-
Assessment: 64-year-old male with a past medical history of DM type II, hypertension, ARGENIS on CPAP + hyperlipidemia who presented on 07/02/2024 with worsening SOB with activity x 1 week. He denies chest pain, palpitations or dizziness. [facility] and CXR showed pleural effusion (unclear which side). He is also found to have irregular heartbeat so was sent to the ER for further evaluation. Initial EKG showed atrial fibrillation with RVR with ventricular rate of
115 bpm. Initial vitals showed he was afebrile to 97.9 �F, breathing at 16 breaths/min, BP 138/94 and saturating 97% on room air. Initial vitals showed Hb 13.7, proBNP 1180, and initial troponin negative at <0.12. Initial CXR showed mild
pulmonary edema with small bilateral pleural effusions with adjacent atelectasis. He was given 20 mg Cardizem, 40 mEq potassium +60 mg Lasix and admitted to telemetry under the hospitalist service. Cardiology was consulted, he is started on
diuresis and echo showed severe eccentric MR with preserved LVEF 65-70% with normal regional wall motion. CT surgery was consulted. DOROTHY was performed on 07/04/2024 showing severe eccentric anteriorly directed MR with partial flail posterior MV
leaflet with torn chordae at approximately P2. Left heart catheterization performed on 07/07 showed 70% mid LAD stenosis with elevated LV filling pressures with LVEDP 20 mmHg and +4 mitral regurgitation. Surgical revascularization plus valve
repair was discussed with the patient including its risks and benefits. Eliquis was stopped, heparin drip was started and Lasix was continued. On 07/11/2024, he underwent CABG x 2 with radical mitral valve repair, ANANT maze using cryoablation + left
atrial appendage exclusion with a 35mm clip. Patient underwent procedure without any immediate complications and was transferred to the CVICU postoperatively. Health And Safety Specialist services consulted for additional management/recommendations.
Chronic conditions CAPTAIN/AIRLINE PILOT: DM type II, ARGENIS on CPAP, hyperlipidemia, hypertension
Impression:
#CAD involving mid-LAD s/p CABG x 2 (POD#2)
#Acute respiratory failure with hypoxia with new onset atrial fibrillation due to mitral valve insufficiency s/p radical mitral valve repair + ANANT-exclusion + LA-MAZE (POD #2)
#Abnormal urinalysis with trace leukocyte esterase and few urine bacteria � likely due to asymptomatic bacteria
#RUL patchy opacities seen on CT Chest from 07/04/2024
#ARGENIS on CPAP
#DM type II
#HTN
#HLD
Plan:
Patient successfully extubated on 07/11/2024 to nasal cannula. He is now on room air breathing comfortably saturating 97-98%
prn nebulized bronchodilators
Encourage incentive spirometer use 10x/hr for at least 4 hrs a day
Removal of R-IJ cordis per CT surgery team
Maintain MAP>65
Replete electrolytes with K>4, Mg>2
Chest tubes now all removed
Monitor hemoglobin
Monitor platelet count and coags
Transfuse blood products as needed to maintain Hb>7g/dL, plt>50k (given post-operative status)
Given RUL patchy opacities seen on CT chest from 07/04/2024; procalcitonin was checked which was negative at 0.24. No need to start antibiotics at this time. Repeat imaging as stated below. Patient is aware of this plan.
Monitor blood sugar to maintain euglycemia with goal BG 140-180
Insulin drip per protocol --> plan to stop this afternoon and then transition to SQ insulin to maintain BG goal as above
Aspiration precautions
DVT prophylaxis
Early nutrition
Early mobilization
Of note, he had several patchy opacities seen in his right upper lobe from CT chest from 07/04/2024. Imaging with CT chest without contrast should be repeated in about 4-6 weeks to follow-up this to resolution. Outpatient office follow-up will be
arranged. Patient is aware of this plan and is in agreement.
Patient currently on insulin drip which will be weaned off this afternoon, and then will be downgraded to CVICU�telemetry status. Health And Safety Specialist/Pulmonary service will now sign off. Thank you for allowing us to be involved in the care of this
patient. Please reconsult if there are any additional questions/concerns, or if patient's respiratory status deteriorates.
Total time spent today was 55 minutes for this encounter. Time includes reviewing laboratory test/imaging results, reviewing pertinent medical records, obtaining and reviewing medical history, performing an appropriate exam, ordering medications,
tests and procedures. Time also includes documentation of this encounter, coordinating patient care and communicating with other healthcare professionals. Total time does not include separately billed tests performed on this date of service.
Data:
CXR 07/12/2024:
Since prior examination, the endotracheal tube has been discontinued. Left chest tube and multiple mediastinal tubes remain in place as does a right internal jugular Hardin-Ruben catheter. The cardiomediastinal margins are stable. No pneumothorax
identified. No significant change in mild left lower lobe atelectasis.
CXR 07/13/2024: Cardiomegaly - Stable; obscuration of the left hemidiaphragm concerning for mild left lower lobe atelectasis versus pneumonia - progressed.
CT Chest/Abdomen/Pelvis 07/04/2024:
1. Small bilateral pleural effusions with adjacent atelectatic changes as above, right greater than left. Small amount of abnormal peribronchovascular groundglass and interstitial opacity in the right upper lobe which could be related to either
edema or infection.
2. Coronary and aortic atherosclerosis. Negative for aortic aneurysmal dilation.
3. No acute intra-abdominal process.
Subjective Dataa
Subjective Data
Date of Service:
Date of Service: July 13, 2024
Chief Complaint: Health And Safety Specialist Follow Up
Subjective:
Patient seen and evaluated today at bedside. Coughing overnight with yellow phlegm but denies SOB. Still with some postoperative chest discomfort. Currently on insulin at 10 units/hr + amiodarone at 0.5mg/min. Heart rate 81, BP 95/65 and
saturating 98% on room air. at bedside and all questions were answered. Procalcitonin this morning was negative at 0.24. Patient denies MARIE, abdominal pain, nausea, fevers or chills.
Review of Systems
General: Other (Negative unless mentioned above)
Objective Data
Data Reviewed
Vital Signs / I&O / Oxygen:
Vital Signs
Temp Pulse Resp BP Pulse Ox
98.9 F 84 18 95/65 96
07/13/24 09:00 07/13/24 09:00 07/13/24 06:00 07/13/24 09:00 07/13/24 09:00
Intake and Output
07/12/24 07/13/24 07/14/24
06:59 06:59 06:59
Intake Total 1291.6 / 1325.7 1349.6 / 1349.6 266 / 266
Output Total 1145 / 1145 1030 / 1030 640 / 640
Balance 146.6 / 180.7 319.6 / 319.6 -374 / -374
SaO2 [CPAP] 92
SaO2 [SIMV] 93
SaO2 96
Nasal Cannula flow liters per 2
minute
Physical Exam
General: Respiratory Distress (negative), Comfortable, Pain (Postoperative chest discomfort) and Chills (negative)
HEENT: Normocephalic and Anicteric
Cardiovascular: S1-S2 and Peripheral Edema (negative)
Respiratory: Wheeze (negative), Rhonchi (negative), Non-Labored Respirations and Other (Coarse breath sounds heard bilaterally)
GI: Soft, Non Distended, Non Tender and Normal Bowel Sounds
Neurology: AO x 3 and Tremors (negative)
Skin: Warm, Dry and Jaundice (negative)
Labs/Micro/Reports
Lab Data
07/13/24 05:12
07/13/24 05:12
--- NOTE | 2024-07-13 08:14 | W.PN.CARDCBS ---
Today's Communication / Plan
-
IV Amiodarone and transition to oral amio
IV lasix diuresis
Cont post op care
Impression / Plan
-
.
PCP: [facility] in [place]
Gluer: none, seen initially by Dr Drew
Impression:
Status post CABG x2 in situ NIEVES to LAD, Ao ro RSVG to diagonal, radial MV repair, maze, ANANT clip 07/11/24
Atrial fibrillation-new diagnosis
Post op AFib
Acute heart failure-new diagnosis
Severe MR with torn cordae post leaflet.
Mid LAD stenosis involving diagonal branch by cath 07/07/24
DM-2, HbA1c 6.
HTN
Hyperlipidemia
ARGENIS on CPAP
COPD
NSVT on telemetry vs aberrancy
Overweight
Daily alcohol
EKG personally reviewed 07/02/24 2356: NSR, iRBBB
EKG personally reviewed 07/02/24 1608: afib with RVR and iRBBB, HR 115
Echo Jul 03 2024: EF 65-70% with severe eccentric MR.
Plan:
64-year-old man presenting in decompensated heart failure found to have severe mitral regurgitation due to torn chordae s/p CABG x2 in situ NIEVES to LAD, Ao ro RSVG to diagonal, radial MV repair, maze, ANANT clip 07/11/24
Off IV Dobutamine
Gentle IV diuresis as bp will tolerate; lasix 20 mg IV Nov 15
Postop ECG with ectopic atrial bradycardia, recurrent AFib, rate controlled.
Cont IV Amiodarone.
Beta-tushar on hold
was in ectopic atrial rhythm with HRs in 30-40s immediately postop.
Cont aspirin/Plavix and statin
Now status post left atrial appendage clip, would consider oral anticoagulation when safe from a surgical standpoint
Discussed with nursing
Progress Note - Gluer
Subjective
Date of Service: July 13, 2024
Pt seen and examined. No complaints. No chest pain or shortness of breath.
Objective
Labs:
07/13/24 05:12
07/13/24 05:12
Labs
Hgb 11.0 g/dL (13.0-18.0) L 07/13/24 05:12
Hct 31.9 % (39.0-52.0) L 07/13/24 05:12
Plt Count 153 10^3/uL (130-400) 07/13/24 05:12
PT 15.5 Sec (11.4-14.6) H 07/12/24 03:59
INR 1.24 07/12/24 03:59
APTT 35.5 Sec (23.4-35.0) H 07/11/24 12:59
Sodium 133 mmol/L (135-145) L 07/13/24 05:12
Potassium 4.4 mmol/L (3.5-5.1) 07/13/24 05:12
BUN 22 mg/dl (9-20) H 07/13/24 05:12
Creatinine 0.9 mg/dL (0.7-1.3) 07/13/24 05:12
Glucose 88 mg/dl (70-99) 07/13/24 05:12
Vital Signs and I&O:
Vital Signs
Temp Pulse Resp BP Pulse Ox
99 F 85 18 106/56 97
07/13/24 05:00 07/13/24 06:00 07/13/24 06:00 07/13/24 06:00 07/13/24 05:47
Vital Signs
Temp Pulse Resp BP Pulse Ox
99 F 85 18 106/56 97
07/13/24 05:00 07/13/24 06:00 07/13/24 06:00 07/13/24 06:00 07/13/24 05:47
Intake & Output
07/11/24 07/12/24 07/13/24 09/16/24
06:59 06:59 06:59 06:59
Intake Total 280 / 280 1291.6 / 1325.7 1349.6 / 1349.6
Output Total 3490 / 3490 1145 / 1145 1030 / 1030
Balance -3210 / -3210 146.6 / 180.7 319.6 / 319.6
Physical Exam
Physical Exam
General: No acute distress, AAOX3
Neck: Negative JVD
Heart: Iregularly irregular, Negative S3 positive S1/S2, Negative S4, No murmur
Lungs: CTA b/l, negative wheezes/rales/rhonchi
Abd: Positive BS, NT/ND, neg rebound/rigidity/guarding
Ext: Negative cyanosis/clubbing/edema
Neuro: nonfocal
[2024-07-13] MEDS: NOVOLOG FLEXPEN 4 UNITS SC (08:45)
[2024-07-13 08:47] LABS: Glucose - Point of Care 128 mg/dl (70-99)
[2024-07-13] MEDS: BACTROBAN 2% OINTMENT 1 APPLIC NASAL ×2 (09:23→20:15)
[2024-07-13] MEDS: LASIX 20 MG IV (09:31)
[2024-07-13] MEDS: CRESTOR 5 MG PO (09:31)
[2024-07-13] MEDS: SENOKOT-S 1 TABLET PO ×2 (09:32→20:16)
[2024-07-13] MEDS: MAGNESIUM OXIDE 500 MG PO ×2 (09:32→20:16)
[2024-07-13] MEDS: FEOSOL 325 MG PO (09:32)
[2024-07-13] MEDS: PROTONIX 40 MG PO (09:32)
[2024-07-13] MEDS: KCL 20 MEQ PO (09:32)
[2024-07-13] MEDS: LOW STRENGTH ASPIRIN 81 MG PO (09:33)
[2024-07-13] MEDS: NEURONTIN 100 MG PO ×3 (09:33→22:59)
[2024-07-13] MEDS: PLAVIX 75 MG PO (09:33)
[2024-07-13] MEDS: LIDOCAINE 4% PATCH 1 PATCH TOPICAL (09:34)
[2024-07-13] MEDS: VITAMIN C 500 MG PO (09:34)
[2024-07-13 11:12] LABS: Glucose - Point of Care 186 mg/dl (70-99)
[2024-07-13] MEDS: NOVOLIN R INSULIN INFUSION 100 IV (11:13)
--- NOTE | 2024-07-13 12:00 | PTCARENOTE ---
CTS d/c'd without issue
[2024-07-13 12:03] LABS: Glucose - Point of Care 138 mg/dl (70-99)
[2024-07-13] MEDS: NOVOLOG FLEXPEN SC (13:44)
[2024-07-13] MEDS: TYLENOL PO (14:09)
[2024-07-13] MEDS: NSS 500 IV (14:11)
[2024-07-13] MEDS: FERRLECIT 110 MG IV (14:11)
--- NOTE | 2024-07-13 15:14 | PTCARENOTE ---
Assumed care for outgoing RN, pt oob in chair, with family, VSS, Afib, Amio gtt, Rt IJ cordis, RA, 2l with cpap qhs, AC/HS bs, pain control with oxy PRN, CT x3 dced today, insulin gtt dced today. ambulate with nursing assistance as tolerated.
[2024-07-13 16:39] LABS: Glucose - Point of Care 142 mg/dl (70-99)
[2024-07-13] MEDS: NOVOLOG FLEXPEN-MODERATE RESISTANCE SC (16:39)
--- NOTE | 2024-07-13 20:45 | PTCARENOTE ---
Report received from GOOD Randolph. Walking rounds done. Pt sitting in chair. VS done. Pt assessed. Pt awake, alert, oriented x 4. Speech clear. On room air. Sat 94%. Pt with frequent, moist, intermittently productive cough. Mucinex given as scheduled.
BBS present. Decreased to B bases, decreased L base. CDB and IS encouraged. IS peak 1250. Pt in a-fib, then a junctional rhythm at times, rate 49-50's-brief, then back to AF. Amiodarone gtt at 0.5 mg/min. AV wires present. Attached to temp PM. AAI,
rate 35, mA 5, sensitivity 0.4. Audible heart tones. Normotensive BP, see VS flowsheet. For pulse and wound assessments, see flowsheets. Belly soft, obese, nontender. Normoactive bs x 4. Passing flatus. Pt due to void on my shift. Voided 1600 mls on
day shift.
at bedside. Ed, PA in to see pt. Pt given CHG bath, new gown and linens provided. Oxycodone 5 mg given for 8/10 sternal pain. Ongoing plan of care.
--- NOTE | 2024-07-13 23:45 | PTCARENOTE ---
2200 scheduled meds given. IV site redressed per protocol. Pt helped to standing, used urinal to void 500 mls of clear, yellow urine. Pt helped back to bed. Pt to wear home CPAP with 3L/O2. Sats 94-98% with this device. States pain feels less after
roxicodone.
[2024-07-14] VITALS (17 sets, daily range): BP systolic 99–154; BP diastolic 44–80; PULSE 53; O2SAT 97–99; BMI 35.5
[2024-07-14] MEDS: CORDARONE 518 MG IV (04:14)
--- NOTE | 2024-07-14 04:49 | PTCARENOTE ---
Labs drawn and sent. EKG done. VS recorded. See flowsheet. Pt sleeping intermittently. Will awake appropriately. CPAP 3L, Sats 95%. No c/o pain.
[2024-07-14 04:53] LABS: Hematocrit 29.3 % (39.0-52.0); Hemoglobin 10.3 g/dL (13.0-18.0); Mean Corp Hgb Conc. 35.2 g/dL (33.0-37.0); Mean Corpuscular Hgb 30.6 pg (27.0-31.0); Mean Corpuscular Volume 86.9 fL (80.0-94.0); Platelet Count 172 10^3/uL (130-400); Red Blood Cell Count 3.37 10^6/uL (4.70-6.10); Red Cell Dist. Width 12.7 % (11.5-14.5); White Blood Cell Count 9.7 10^3/uL (4.8-10.8)
[2024-07-14 05:14] LABS: Blood Urea Nitrogen 16 mg/dl (9-20); Calcium 7.8 mg/dl (8.4-10.2); Carbon Dioxide 26 mmol/L (22-30); Chloride 99 mmol/L (98-107); Estimated Creatinine Clearance > 125 ml/min; Glucose 133 mg/dl (70-99); Magnesium 2.6 mg/dl (1.6-2.3); Potassium 4.7 mmol/L (3.5-5.1); Sodium 130 mmol/L (135-145); eGFR > 60.00
--- NOTE | 2024-07-14 05:15 | PTCARENOTE ---
Pt helped up to chair this am. Weighed on standing scale. VS remained stable. Tylenol given as scheduled.
[2024-07-14] MEDS: TYLENOL 1000 MG PO ×3 (05:19→21:40)
--- NOTE | 2024-07-14 05:23 | W.PN.CT ---
Today's Communication / Plan
-
Plan:
-No major issues overnight. Hemodynamically and neurologically intact
-Pt went into a-fib with RVR (110 bpm) @ 2300 on 07/12 while on Dobutamine gtt @ 1.5 mcg/kg/min
-Dobutamine gtt d/c'd following a-fib
-Started on Amiodarone gtt subsequently @ 0.5 mg/min with temporary PW @ backup @ 35 bpm
-BP noted to be soft off Dobutamine. BB and PO Amiodarone are on hold as pt was noted to be in junctional rhythm in the 50's requiring A/V pacing @ 80 bpm prior to A-fib
-Currently in NSR with 1st deg HB per EKG this AM, intermittent pacing @ 35 bpm noted overnight
-Cont. current meds (ASA, Plavix, Crestor, Amiodarone gtt; will eventually require resumption of Eliquis for a-fib hx)
-Maintain temporary PW
-Maintain cordis another day while on Amiodarone gtt
-Wean off of O2 as tolerated
-Encourage use of IS/CPAP machine during sleep
-Cont. gentle diuresis as BP allows
-Monitor hyponatremia, 130. Fluid restriction
-OOB into chair/Ambulate
Assessment / Plan
-
Assessment:
-S/P Sternotomy with aortic and bicaval cannulation/CABG x 2 [in situ NIEVES to LAD, Ao to RSVG to diagonal]/R EVH/Radical mitral valve repair [triangular resection of P2, primary repair of P2 and P1, closure of cleft of P2 and P3, plication of the
free margin at A2 A3, single [place]-Jonathan cord to the posterior medial papillary muscle head to the P2 segment, 34 mm band annuloplasty]/Left atrial maze using cryo ablation/Left atrial appendage exclusion [35 mm clip, additional suture closure of the
internal orifice was required], by Dr. Maldonado, 07/11/24, pod#3
-Severe eccentric MR secondary to prolapse as well as flail with torn cords at the P2 scallop
-LVEF 60-65% per intraop DOROTHY
-Moderate dilated left atrium
-Single vessel CAD (70% mid/origin of diag) per cath 07/07/24
-New onset Atrial fibrillation (was on Eliquis)
-Acute on chronic Diastolic CHF with associated respiratory failure from volume overload, LVEDP was elevated, right heart filling pressures were also elevated
-Small b/l pleural effusion with adjacent atelectasis
-HTN
-HLD
-T2DM (hgb A1C 6.0, diet controlled)
-Class 2 obesity (BMI 35.2)
-ARGENIS (uses CPAP)
-COPD (pt denies)
-B/L knee arthroscopy
-S/p Cholecystectomy
-Acute postop blood loss/Anemia (stable without transfusion)
-Acute pre and postop atelectasis
-Acute postop hypovolemia with subsequent hypervolemia
-Acute postop hypoxemia (PO2 60's per ABG)
-Acute postop junctional rhythm in the 40's (requiring A/V pacing @ 70 bpm)
Discussed patient care with: Cardiology, Nursing, Respiratory Therapy, Pharmacy and Care Team
Subjective
Procedure
S/P Sternotomy with aortic and bicaval cannulation/CABG x 2 [in situ NIEVES to LAD, Ao to RSVG to diagonal]/R EVH/Radical mitral valve repair [triangular resection of P2, primary repair of P2 and P1, closure of cleft of P2 and P3, plication of the
free margin at A2 A3, single [place] cord to the posterior medial papillary muscle head to the P2 segment, 34 mm band annuloplasty]/Left atrial maze using cryo ablation/Left atrial appendage exclusion [35 mm clip, additional suture closure of the
internal orifice was required], by Dr. Maldonado, 07/11/24
-
Date of Service: July 14, 2024
Objective Data
-
Lab Results
07/14/24 04:26
07/14/24 04:26
PT 15.5 Sec (11.4-14.6) H 07/12/24 03:59
INR 1.24 07/12/24 03:59
APTT 35.5 Sec (23.4-35.0) H 07/11/24 12:59
Vital Signs
Vital Signs
Temp Pulse Resp BP Pulse Ox
98.5 F 90 16 115/71 96
07/14/24 04:00 07/14/24 04:00 07/14/24 04:00 07/14/24 04:00 07/14/24 04:00
CT Intake/Output/Weight
07/13/24 07/13/24 07/14/24
06:59 18:59 06:59
Intake Total 296.1 / 1349.6 581.4 / 838.4 257.0 / 838.4
Output Total 445 / 1030 1640 / 2615 975 / 2615
Balance -148.9 / 319.6 -1058.6 / -1776.6 -718.0 / -1776.6
SaO2: 96 (2L)
Physical Exam
-
General: Awake, Oriented and AOx3
Cardiovascular: Regular rate & rhythm, No Murmurs, No Rub and No Gallop
Respiratory: Decreased Breath Sounds (at bases, otherwise clear)
Sternum: Stable
Incision: Clean, Dry, Intact and Dressing Intact
Extremities: Other (+trace edema)
Data Reviewed
-
Lab Results: Results Reviewed
Medications: Active Meds Reviewed
Chest X-Ray: Report Reviewed and Image Reviewed
ECG: Report Reviewed and Image Reviewed
[2024-07-14 07:46] LABS: Glucose - Point of Care 170 mg/dl (70-99)
[2024-07-14] MEDS: NOVOLOG FLEXPEN-MODERATE RESISTANCE 1 UNITS SC ×3 (07:46→18:07)
--- NOTE | 2024-07-14 08:00 | PTCARENOTE ---
Resumed care of patient from previous RN. Walking rounds done. Patient OOB in chair at time of assessment. VSS. AAOx3. Pt appears to be in a junctional rhythm with HR 50s. Amiodarone stopped and EKG obtained. PA made aware. AV wires present.
Attached to temp PM. AAI, rate 35, mA 5, sensitivity 0.4. Sat 95% RA. Occasional productive cough. IS peak 1250. Lungs diminished at bases. Round obese distended. Normoactive bs. Passing flatus. clear josemanuel urine in urinal. Pulses palpable. All
surgical sites c/d/i. Will continue to monitor.
--- NOTE | 2024-07-14 09:09 | W.PN.CARDCBS ---
Addendum entered and electronically signed by Jake Drew DO 07/14/24 10:00:
I saw and examined the patient.
The Store Hand's note was reviewed and I agree with the note.
Comment:
Plan:
Transition to oral amiodarone
Sinus with first degree, PAFib
Consider transition to oral anticoagulation once ok with surgery. he did have ANANT clip
Increase lasix to 40 mg IV for further diuresis
Cont post op care
Original Note:
Today's Communication / Plan
-
-transition to oral amiodarone
-increase Lasix to 40 mg IV
Impression / Plan
-
.
PCP: [facility] in [place]
Farm Service Adviser: none, seen initially by Dr Drew
Impression:
POD Day 3 - Status post CABG x2 in situ NIEVES to LAD, Ao ro RSVG to diagonal, radial MV repair, maze, ANANT clip 07/11/24
Atrial fibrillation-new diagnosis
Post op AFib
Acute heart failure-new diagnosis
Severe MR with torn cordae post leaflet.
Mid LAD stenosis involving diagonal branch by cath 07/07/24
DM-2, HbA1c 6.
HTN
Hyperlipidemia
ARGENIS on CPAP
COPD
NSVT on telemetry vs aberrancy
Overweight
Daily alcohol
EKG personally reviewed 07/02/24 2356: NSR, iRBBB
EKG personally reviewed 07/02/24 1608: afib with RVR and iRBBB, HR 115
Echo Jul 03 2024: EF 65-70% with severe eccentric MR.
CXR 07/14/24: haziness L diaphragm, may represent LLL atelectasis, otherwise clear lungs
Plan:
64-year-old man presenting in decompensated heart failure found to have severe mitral regurgitation due to torn chordae s/p CABG x2 in situ NIEVES to LAD, Ao ro RSVG to diagonal, radial MV repair, maze, ANANT clip 07/11/24
POD 3
-still with VALDEZ and wt trending up (Wt up 11 lbs since day of surgery 07/11/24) - increase Lasix to 40 mg IV 07/14, creatinine stable
Postop ECGs with ectopic atrial bradycardia, recurrent AFib, rate controlled.
EKG 07/14/24 personally reviewed NSR w/ first degree AVB
telemetry 07/14/24 personally reviewed: NSR with intermittant afib and occasional bradycardia overnight requiring backup pacing
-transition to oral amiodarone
-will need to start anticoagulation once safe from a surgical standpoint. He is s/p ANANT clip
Beta-tushar on hold due to bradycardia and lower BPs 99/77-115/71
was in ectopic atrial rhythm with HRs in 30-40s immediately postop.
Cont aspirin/Plavix and statin
-wean O2 at tolerated
-PT
-cardiac rehab on discharge
Progress Note - Farm Service Adviser
Subjective
Date of Service: July 14, 2024
SOB with ambulation yesterday
telemetry showing paroxysmal afib, rate controlled, occasional HRs to 30s overnight requiring backup pacing
Objective
Labs:
07/14/24 04:26
07/14/24 04:26
Labs
Hgb 10.3 g/dL (13.0-18.0) L 07/14/24 04:26
Hct 29.3 % (39.0-52.0) L 07/14/24 04:26
Plt Count 172 10^3/uL (130-400) 07/14/24 04:26
PT 15.5 Sec (11.4-14.6) H 07/12/24 03:59
INR 1.24 07/12/24 03:59
APTT 35.5 Sec (23.4-35.0) H 07/11/24 12:59
Sodium 130 mmol/L (135-145) L 07/14/24 04:26
Potassium 4.7 mmol/L (3.5-5.1) 07/14/24 04:26
BUN 16 mg/dl (9-20) 07/14/24 04:26
Creatinine 0.7 mg/dL (0.7-1.3) 07/14/24 04:26
Glucose 133 mg/dl (70-99) H 07/14/24 04:26
Vital Signs and I&O:
Vital Signs
Temp Pulse Resp BP Pulse Ox
98.5 F 90 16 115/71 96
07/14/24 04:00 07/14/24 04:00 07/14/24 04:00 07/14/24 04:00 07/14/24 05:34
Vital Signs
Temp Pulse Resp BP Pulse Ox
98.5 F 90 16 115/71 96
07/14/24 04:00 07/14/24 04:00 07/14/24 04:00 07/14/24 04:00 07/14/24 05:34
Intake & Output
07/12/24 07/13/24 07/14/24 07/15/24
06:59 06:59 06:59 06:59
Intake Total 1291.6 / 1325.7 1349.6 / 1349.6 838.4 / 838.4
Output Total 1145 / 1145 1030 / 1030 2615 / 2615
Balance 146.6 / 180.7 319.6 / 319.6 -1776.6 / -1776.6
Physical Exam
Physical Exam
GEN: No distress, awake, Ox3
HEENT: supple, anicteric, mmm
LUNGS: CTA, no wheezes/rales
CV: Reg, S1/S2,no murmur
ABD: soft, BS+, NT/ND
EXT: No edema
NEURO: Gross non-focal
SKIN: No rash, sternal incision well approximated, no drainage
[2024-07-14] MEDS: SENOKOT-S 1 TABLET PO ×2 (09:44→20:30)
[2024-07-14] MEDS: PROTONIX 40 MG PO (09:44)
[2024-07-14] MEDS: PLAVIX 75 MG PO (09:44)
[2024-07-14] MEDS: MAGNESIUM OXIDE 500 MG PO ×2 (09:45→20:29)
[2024-07-14] MEDS: MUCINEX 600 MG PO ×2 (09:45→20:29)
[2024-07-14] MEDS: FEOSOL 325 MG PO (09:45)
[2024-07-14] MEDS: KCL 20 MEQ PO (09:45)
[2024-07-14] MEDS: NEURONTIN 100 MG PO ×3 (09:45→21:41)
[2024-07-14] MEDS: LOW STRENGTH ASPIRIN 81 MG PO (09:45)
[2024-07-14] MEDS: CRESTOR 5 MG PO (09:45)
[2024-07-14] MEDS: VITAMIN C 500 MG PO (09:45)
[2024-07-14] MEDS: LASIX 20 MG IV (09:46)
[2024-07-14] MEDS: BACTROBAN 2% OINTMENT 1 APPLIC NASAL ×2 (09:46→20:29)
[2024-07-14] MEDS: LIDOCAINE 4% PATCH 1 PATCH TOPICAL (09:48)
--- NOTE | 2024-07-14 11:56 | CM ---
Chart reviewed. Patient is independent of ADLS, lives with his , son, DIL and 3 grandchildren in a 2 sT, 1 AURA, 0 DME. Plan is for the patient to return home with CT Transitional RN. CM to follow
[2024-07-14 12:10] LABS: Glucose - Point of Care 175 mg/dl (70-99)
[2024-07-14] MEDS: LASIX 40 MG IV (12:28)
[2024-07-14] MEDS: NSS IV (13:42)
[2024-07-14] MEDS: ROXICODONE 5 MG PO ×2 (13:50→20:42)
[2024-07-14] MEDS: FERRLECIT 110 MG IV (13:51)
[2024-07-14] MEDS: ROXICODONE 2.5 MG PO (14:35)
--- NOTE | 2024-07-14 15:48 | PTCARENOTE ---
patient flipped back into afib. Asymptomatic. ACCOUNTING REPRESENTATIVE helen made aware. awaiting orders.
[2024-07-14] MEDS: PACERONE 200 MG PO ×2 (16:18→21:41)
[2024-07-14 17:44] LABS: Glucose - Point of Care 156 mg/dl (70-99)
--- NOTE | 2024-07-14 21:00 | PTCARENOTE ---
Assumed care of pt from dayshift RN. Walking rounds completed. Pt AAOx3. DEMARCO. Pt a-fib on the monitor. HR 50s. Temporary A/V wires intact and set to AAI 35/5/0.4. BP stable. Palpable pulses throughout. Trace bilateral LE edema. Pt on RA. POX 97%.
Lung sounds diminished bilaterally. Pt reports he gets dyspneic w/ exertion. Pt has frequent cough. Mucinex ordered. Deep breathing and IS encouraged. Abdomen round/nontender. +BS. Pt states he is voiding w/o issue. Sternal incision approximated and
NICOLE. Right knee/groin surgical sites intact. CT dressing changed. Right IJ cordis intact w/ KVO infusing. Pt c/o pain - see MAR. See worklist for full nursing assessment and interventions. Call matos within reach.
[2024-07-14 21:41] LABS: Glucose - Point of Care 139 mg/dl (70-99)
[2024-07-14] MEDS: FLEXERIL 5 MG PO (22:00)
[2024-07-15] VITALS (8 sets, daily range): BP systolic 110–153; BP diastolic 57–79; PULSE 55; O2SAT 98–99; BMI 35.4
--- NOTE | 2024-07-15 00:54 | PTCARENOTE ---
Previous assessment unchanged. Pt a-fib on the tele monitor. Temporary epicardial A/V wires intact. Settings unchanged. HR 50s. BP stable. Pt using home CPAP machine w/ 3 L NC. POX 98%. All surgical sites stable. Pt repositioned in bed. Call matos
within reach.
[2024-07-15] MEDS: ROXICODONE 5 MG PO ×5 (02:42→23:36)
[2024-07-15 04:09] LABS: Ionized Calcium 1.04 mMOL/L (1.15-1.33)
[2024-07-15 04:11] LABS: Hematocrit 29.8 % (39.0-52.0); Hemoglobin 10.3 g/dL (13.0-18.0); Mean Corp Hgb Conc. 34.6 g/dL (33.0-37.0); Mean Corpuscular Hgb 31.5 pg (27.0-31.0); Mean Corpuscular Volume 91.1 fL (80.0-94.0); Mean Platelet Volume 8.7 fL (7.4-10.4); Platelet Count 188 10^3/uL (130-400); Red Blood Cell Count 3.27 10^6/uL (4.70-6.10); Red Cell Dist. Width 12.6 % (11.5-14.5); White Blood Cell Count 8.6 10^3/uL (4.8-10.8)
--- NOTE | 2024-07-15 04:16 | W.PN.CT ---
Today's Communication / Plan
-
Plan:
-No major issues overnight. Hemodynamically and neurologically intact
-Off all drips, amiodarone gtt transitioned to PO Amiodarone per Cardiology
-Held BB d/t bradycardia @ 43 bpm (appeared junctional) last night (during sleep)
-EKG this AM shows junctional rhythm @ 46 bpm
-Will eventual require resumption of Eliquis for PAF
-Cont. current meds (ASA, Plavix, Crestor; will eventually require resumption of Eliquis for a-fib hx)
-Maintain temporary PW
-D/C cordis
-F/U 2-view cxr
-Encourage use of IS/CPAP machine during sleep
-Monitor hyponatremia, 133 today, was 130 yesterday. Cont. fluid restriction
-Continue diuresis, replete electrolytes
-Holding mag oxide, mg 2.4
-OOB into chair/Ambulate
-Home in 1-2 days
Assessment / Plan
-
Assessment:
-S/P Sternotomy with aortic and bicaval cannulation/CABG x 2 [in situ NIEVES to LAD, Ao to RSVG to diagonal]/R EVH/Radical mitral valve repair [triangular resection of P2, primary repair of P2 and P1, closure of cleft of P2 and P3, plication of the
free margin at A2 A3, single [place]-Jonathan cord to the posterior medial papillary muscle head to the P2 segment, 34 mm band annuloplasty]/Left atrial maze using cryo ablation/Left atrial appendage exclusion [35 mm clip, additional suture closure of the
internal orifice was required], by Dr. Maldonado, 07/11/24, pod#4
-Severe eccentric MR secondary to prolapse as well as flail with torn cords at the P2 scallop
-LVEF 60-65% per intraop DOROTHY
-Moderate dilated left atrium
-Single vessel CAD (70% mid/origin of diag) per cath 07/07/24
-New onset Atrial fibrillation (was on Eliquis)
-Acute on chronic Diastolic CHF with associated respiratory failure from volume overload, LVEDP was elevated, right heart filling pressures were also elevated
-Small b/l pleural effusion with adjacent atelectasis
-HTN
-HLD
-T2DM (hgb A1C 6.0, diet controlled)
-Class 2 obesity (BMI 35.2)
-ARGENIS (uses CPAP)
-COPD (pt denies)
-B/L knee arthroscopy
-S/p Cholecystectomy
-Acute postop blood loss/Anemia (stable without transfusion)
-Acute pre and postop atelectasis
-Acute postop hypovolemia with subsequent hypervolemia
-Acute postop hypoxemia (PO2 60's per ABG)
-Acute postop junctional rhythm in the 40's (requiring A/V pacing @ 70 bpm)
Discussed patient care with: Cardiology, Nursing, Respiratory Therapy, Pharmacy and Care Team
Subjective
Procedure
S/P Sternotomy with aortic and bicaval cannulation/CABG x 2 [in situ NIEVES to LAD, Ao to RSVG to diagonal]/R EVH/Radical mitral valve repair [triangular resection of P2, primary repair of P2 and P1, closure of cleft of P2 and P3, plication of the
free margin at A2 A3, single [place]-Jonathan cord to the posterior medial papillary muscle head to the P2 segment, 34 mm band annuloplasty]/Left atrial maze using cryo ablation/Left atrial appendage exclusion [35 mm clip, additional suture closure of the
internal orifice was required], by Dr. Maldonado, 07/11/24
-
Date of Service: July 15, 2024
Pt c/o mild incisional pain, otherwise feels well
Objective Data
-
Lab Results
07/15/24 03:53
PT 15.5 Sec (11.4-14.6) H 07/12/24 03:59
INR 1.24 07/12/24 03:59
APTT 35.5 Sec (23.4-35.0) H 07/11/24 12:59
Vital Signs
Vital Signs
Temp Pulse Resp BP Pulse Ox
98.1 F 46 20 110/57 98
07/15/24 03:50 07/15/24 03:50 07/15/24 03:50 07/15/24 03:50 07/15/24 03:50
CT Intake/Output/Weight
07/14/24 07/14/24 07/15/24
06:59 18:59 06:59
Intake Total 257.0 / 838.4 136.7 / 226.7 90 / 226.7
Output Total 975 / 2615 1595 / 1595
Balance -718.0 / -1776.6 -1458.3 / -1368.3 90 / -1368.3
SaO2: 94 (RA)
Physical Exam
-
General: Awake, Oriented and AOx3
Cardiovascular: Regular rate & rhythm, No Murmurs, No Rub and No Gallop
Respiratory: Decreased Breath Sounds (at bases, otherwise clear)
Sternum: Stable
Incision: Clean, Dry, Intact and Dressing Intact
Extremities: No Edema
Data Reviewed
-
Lab Results: Results Reviewed
Medications: Active Meds Reviewed
Chest X-Ray: Report Reviewed and Image Reviewed
ECG: Report Reviewed and Image Reviewed
[2024-07-15 04:44] LABS: Blood Urea Nitrogen 17 mg/dl (9-20); Calcium 7.7 mg/dl (8.4-10.2); Carbon Dioxide 26 mmol/L (22-30); Chloride 98 mmol/L (98-107); Estimated Creatinine Clearance > 125 ml/min; Glucose 108 mg/dl (70-99); Magnesium 2.7 mg/dl (1.6-2.3); Potassium 4.4 mmol/L (3.5-5.1); Sodium 133 mmol/L (135-145); eGFR > 60.00
--- NOTE | 2024-07-15 04:44 | PTCARENOTE ---
No acute changes in assessment. Pt going from a-fib to junctional on the tele monitor. HR 40-50s. BP stable. Pt using home CPAP machine w/ 3 L of oxygen. POX 98%. All surgical sites stable. Labs drawn and sent. EKG obtained. EKG showed pt was in a
junctional rhythm - CTPA aware. Pt repositioned in bed. Call matos within reach.
[2024-07-15] MEDS: TYLENOL 1000 MG PO ×3 (05:30→21:14)
[2024-07-15] MEDS: CALCIUM CHLORIDE 10% SYRINGE 60 MG IV ×2 (05:30→08:29)
[2024-07-15] MEDS: ANESTHETIC LOZENGE 1 LOZENGE PO (06:26)
[2024-07-15 07:24] LABS: Glucose - Point of Care 136 mg/dl (70-99)
[2024-07-15] MEDS: ELIQUIS 5 MG PO ×2 (08:30→19:23)
[2024-07-15] MEDS: KCL 20 MEQ PO (08:30)
[2024-07-15] MEDS: NEURONTIN 100 MG PO ×3 (08:30→21:14)
[2024-07-15] MEDS: LIDOCAINE 4% PATCH 1 PATCH TOPICAL (08:30)
[2024-07-15] MEDS: CRESTOR 5 MG PO (08:30)
[2024-07-15] MEDS: VITAMIN C 500 MG PO (08:30)
[2024-07-15] MEDS: LOW STRENGTH ASPIRIN 81 MG PO (08:30)
[2024-07-15] MEDS: MUCINEX 600 MG PO ×2 (08:30→19:23)
[2024-07-15] MEDS: SENOKOT-S 1 TABLET PO ×2 (08:30→19:23)
[2024-07-15] MEDS: PACERONE 200 MG PO (08:30)
[2024-07-15] MEDS: PROTONIX 40 MG PO (08:30)
[2024-07-15] MEDS: FEOSOL 325 MG PO (08:31)
[2024-07-15] MEDS: BACTROBAN 2% OINTMENT 1 APPLIC NASAL (08:31)
[2024-07-15] MEDS: NOVOLOG FLEXPEN-MODERATE RESISTANCE SC ×2 (08:31→13:46)
[2024-07-15] MEDS: LASIX 40 MG IV (08:45)
--- NOTE | 2024-07-15 09:03 | PTCARENOTE ---
assumed care of pt from previous shift RN, junctional rhythm on tele w HR 50's, AV wires set to AAI 35/5/0.4. BP 125/63, + peripheral pulses, trace edema. Lungs diminished, pox 96% on RA. + bs, tolerating PO intake, voids spontaneously. Post op
sites intact, right IJ cordis w KVO infusing. plan of care reviewed w the pt and questions encourage.
--- NOTE | 2024-07-15 09:48 | W.PN.CARDCBS ---
Addendum entered and electronically signed by Marc Mares MD 07/15/24 12:13:
I saw and examined the patient.
The BREAKFAST SUPERVISOR or PA's note was reviewed and I agree with the note.
Comment: General: Well developed, well nourished in NAD.
Neck: Supple, no JVD, HJR, carotids +2 B/L, no bruits bilaterally.
Heart: Non displaced PMI, RRR, no murmurs, No S3, S4, no rubs.
Lungs: Scattered rhonchi
Sternotomy appears well-healed
Extremities: No clubbing, cyanosis or edema bilaterally.
Neuro: Grossly nonfocal, awake, alert and oriented x3.
He continues to do very well. He is in a junctional rhythm at present and pacer wires remain in place. He has had significant load with amiodarone while awaiting surgery and also postop. Will hold amiodarone. Beta-tushar has been held as well.
Eliquis has been restarted.
Original Note:
Today's Communication / Plan
-
-hold Amiodarone and continue monitoring rhythm
-PT
Impression / Plan
-
.
PCP: [facility] in [place]
Line Maintenance: none, seen initially by Dr Drew
Impression:
POD Day 4 - Status post CABG x2 in situ NIEVES to LAD, Ao ro RSVG to diagonal, radical MV repair, maze, ANANT clip 07/11/24
Post op AFib
Post op junctional rhythm
Acute heart failure-new diagnosis upon admission
Atrial fibrillation-new diagnosis upon admission
Severe MR with torn cordae post leaflet.
Mid LAD stenosis involving diagonal branch by cath 07/07/24
DM-2, HbA1c 6.
HTN
Hyperlipidemia
ARGENIS on CPAP
COPD
NSVT on telemetry vs aberrancy
Overweight
Daily alcohol
EKG personally reviewed 07/02/24 2356: NSR, iRBBB
EKG personally reviewed 07/02/24 1608: afib with RVR and iRBBB, HR 115
EKG 07/15/24 personally reviewed: junctional rhythm
Echo Jul 03 2024: EF 65-70% with severe eccentric MR.
CXR 07/14/24: haziness L diaphragm, may represent LLL atelectasis, otherwise clear lungs
Plan:
64-year-old man presenting in decompensated heart failure found to have severe mitral regurgitation due to torn chordae s/p CABG x2 in situ NIEVES to LAD, Ao ro RSVG to diagonal, radical MV repair, maze, ANANT clip 07/11/24
POD 4
-telemetry personally reviewed, paroxysmal afib with underlying junctional rhythm, occasional sinus beats. HRs high 47-58 bpm.
-EKG 07/15/24 personally reviewed: junctional rhythm
-Pt denies lightheadedness, syncope. Transitioned to oral Amio 07/14/24, now on Amio 200 mg tid. Beta tushar on hold. Eliquis restarted today 07/15/24.
-given junctional rhythm, will hold Amiodarone and continue to watch rhythm.
-still with VALDEZ, continues on IV Lasix, creatinine stable
-Plavix stopped, remains on ASA
continue statin with goal LDL <55
-wean O2 at tolerated, using O2 at night with CPAP, off during the day
-PT
-cardiac rehab on discharge
Progress Note - Line Maintenance
Subjective
Date of Service: July 15, 2024
c/o VALDEZ with walking 1/2 [address] hallway, also felt 'shaky'
telemety showing junctional rhythm with occ sinus rhythm with paroxysmal afib - denies lightheadedness, syncope
Objective
Labs:
07/15/24 03:53
07/15/24 03:53
Labs
Hgb 10.3 g/dL (13.0-18.0) L 07/15/24 03:53
Hct 29.8 % (39.0-52.0) L 07/15/24 03:53
Plt Count 188 10^3/uL (130-400) 07/15/24 03:53
PT 15.5 Sec (11.4-14.6) H 07/12/24 03:59
INR 1.24 07/12/24 03:59
APTT 35.5 Sec (23.4-35.0) H 07/11/24 12:59
Sodium 133 mmol/L (135-145) L 07/15/24 03:53
Potassium 4.4 mmol/L (3.5-5.1) 07/15/24 03:53
BUN 17 mg/dl (9-20) 07/15/24 03:53
Creatinine 0.7 mg/dL (0.7-1.3) 07/15/24 03:53
Glucose 108 mg/dl (70-99) H 07/15/24 03:53
Vital Signs and I&O:
Vital Signs
Temp Pulse Resp BP Pulse Ox
98.2 F 53 16 125/63 96
07/15/24 08:24 07/15/24 08:24 07/15/24 08:24 07/15/24 08:24 07/15/24 09:14
Vital Signs
Temp Pulse Resp BP Pulse Ox
98.2 F 53 16 125/63 96
07/15/24 08:24 07/15/24 08:24 07/15/24 08:24 07/15/24 08:24 07/15/24 09:14
Intake & Output
07/13/24 07/14/24 07/15/24 07/16/24
06:59 06:59 06:59 06:59
Intake Total 1349.6 / 1349.6 838.4 / 838.4 246.7 / 246.7 110 / 110
Output Total 1030 / 1030 2615 / 2615 2045 / 2045
Balance 319.6 / 319.6 -1776.6 / -1776.6 -1798.3 / -1797.3 110 / 110
Physical Exam
Physical Exam
GEN: No distress, awake, Ox3
HEENT: supple, anicteric, mmm
LUNGS: CTA, no wheezes/rales
CV: Reg, S1/S2, no murmur
ABD: soft, BS+, NT/ND
EXT: No edema
NEURO: Gross non-focal
SKIN: sternal incision well approximated, mild ecchymosis
--- NOTE | 2024-07-15 11:41 | CM ---
Chart reviewed. Patient is independent of ADLS, lives with his , son, DIL and grandchildren in a [address], 1 AURA, 0 DME. Plan is for the patient to return home with CT Transitional RN. CM to follow
--- NOTE | 2024-07-15 12:39 | PTCARENOTE ---
2 view cxr and echo completed. pt remains asymptomatic in junctional rhythm.
[2024-07-15] MEDS: NSS 500 IV (13:43)
[2024-07-15 13:46] LABS: Glucose - Point of Care 120 mg/dl (70-99)
--- NOTE | 2024-07-15 16:39 | PTCARENOTE ---
pt medicated for pain w good relief, VSS, surgical sites intact.
[2024-07-15 17:09] LABS: Glucose - Point of Care 191 mg/dl (70-99)
[2024-07-15] MEDS: NOVOLOG FLEXPEN-MODERATE RESISTANCE 1 UNITS SC (17:09)
--- NOTE | 2024-07-15 20:00 | PTCARENOTE ---
assumed care of pt from previous RN. pt A&Ox4, resting in chair at time of assessment. junctional rhythm on tele-monitor. temp epicardial A/V wires w/ backup settings AAI 35/5/0.4. POX 95% on RA. abd s/n, round, obese. +BS. voiding clear, yellow
urine. all surgical sites stable. R IJ cordis w/ KVO. see worklist for complete nursing assessment, interventions, VS, and I&Os.
[2024-07-15] MEDS: FLEXERIL 5 MG PO (21:14)
[2024-07-15 23:41] LABS: Glucose - Point of Care 126 mg/dl (70-99)
--- NOTE | 2024-07-15 23:45 | PTCARENOTE ---
assessment remains unchanged. VSS. pt using home CPAP.
[2024-07-16] VITALS (10 sets, daily range): BP systolic 77–142; BP diastolic 52–83; PULSE 61; O2SAT 70–97; BMI 35.5
[2024-07-16 04:56] LABS: Hematocrit 28.1 % (39.0-52.0); Hemoglobin 9.7 g/dL (13.0-18.0); Mean Corp Hgb Conc. 34.5 g/dL (33.0-37.0); Mean Corpuscular Hgb 30.2 pg (27.0-31.0); Mean Corpuscular Volume 87.5 fL (80.0-94.0); Mean Platelet Volume 8.5 fL (7.4-10.4); Platelet Count 221 10^3/uL (130-400); Red Blood Cell Count 3.21 10^6/uL (4.70-6.10); Red Cell Dist. Width 12.4 % (11.5-14.5); White Blood Cell Count 7.4 10^3/uL (4.8-10.8)
--- NOTE | 2024-07-16 05:06 | W.PN.CT ---
Today's Communication / Plan
-
Plan:
-No major issues overnight. Hemodynamically and neurologically intact
-Holding Amiodarone and BB given postop junctional rhythm
-Resumed Eliquis for PAF hx
-Cont. current meds (ASA, Plavix, Crestor, Eliquis)
-Maintain temporary PW
-Encourage use of IS/CPAP machine during sleep
-Monitor hyponatremia, 133-> 132. Cont. fluid restriction, diuresis
-OOB into chair/Ambulate
-Home today
Assessment / Plan
-
Assessment:
-S/P Sternotomy with aortic and bicaval cannulation/CABG x 2 [in situ NIEVES to LAD, Ao to RSVG to diagonal]/R EVH/Radical mitral valve repair [triangular resection of P2, primary repair of P2 and P1, closure of cleft of P2 and P3, plication of the
free margin at A2 A3, single [place]-Jonathan cord to the posterior medial papillary muscle head to the P2 segment, 34 mm band annuloplasty]/Left atrial maze using cryo ablation/Left atrial appendage exclusion [35 mm clip, additional suture closure of the
internal orifice was required], by Dr. Maldonado, 07/11/24, pod#5
-Severe eccentric MR secondary to prolapse as well as flail with torn cords at the P2 scallop
-LVEF 60-65% per intraop DOROTHY
-Moderate dilated left atrium
-Single vessel CAD (70% mid/origin of diag) per cath 07/07/24
-New onset Atrial fibrillation (was on Eliquis)
-Acute on chronic Diastolic CHF with associated respiratory failure from volume overload, LVEDP was elevated, right heart filling pressures were also elevated
-Small b/l pleural effusion with adjacent atelectasis
-HTN
-HLD
-T2DM (hgb A1C 6.0, diet controlled)
-Class 2 obesity (BMI 35.2)
-ARGENIS (uses CPAP)
-COPD (pt denies)
-B/L knee arthroscopy
-S/p Cholecystectomy
-Acute postop blood loss/Anemia (stable without transfusion)
-Acute pre and postop atelectasis
-Acute postop hypovolemia with subsequent hypervolemia
-Acute postop hypoxemia (PO2 60's per ABG)
-Acute postop junctional rhythm in the 40's (requiring A/V pacing @ 70 bpm)
Discussed patient care with: Cardiology, Nursing, Respiratory Therapy, Pharmacy and Care Team
Subjective
Procedure
S/P Sternotomy with aortic and bicaval cannulation/CABG x 2 [in situ NIEVES to LAD, Ao to RSVG to diagonal]/R EVH/Radical mitral valve repair [triangular resection of P2, primary repair of P2 and P1, closure of cleft of P2 and P3, plication of the
free margin at A2 A3, single [place]-Jonathan cord to the posterior medial papillary muscle head to the P2 segment, 34 mm band annuloplasty]/Left atrial maze using cryo ablation/Left atrial appendage exclusion [35 mm clip, additional suture closure of the
internal orifice was required], by Dr. Maldonado, 07/11/24
-
Date of Service: July 16, 2024
Pt c/o mild incisional pain, otherwise feels well
Objective Data
-
Lab Results
07/16/24 04:41
PT 15.5 Sec (11.4-14.6) H 07/12/24 03:59
INR 1.24 07/12/24 03:59
APTT 35.5 Sec (23.4-35.0) H 07/11/24 12:59
Vital Signs
Vital Signs
Temp Pulse Resp BP Pulse Ox
98.5 F 47 16 114/52 98
07/16/24 04:00 07/16/24 04:45 07/16/24 04:00 07/16/24 04:45 07/16/24 04:45
CT Intake/Output/Weight
07/15/24 07/15/24 07/16/24
06:59 18:59 06:59
Intake Total 110 / 246.7 120 / 240 120 / 240
Output Total 450 / 2045 1500 / 1700 200 / 1700
Balance -340 / -1798.3 -1380 / -1460 -80 / -1460
SaO2: 98 (RA)
Physical Exam
-
General: Awake, Oriented and AOx3
Cardiovascular: Regular rate & rhythm, No Murmurs, No Rub and No Gallop
Respiratory: Decreased Breath Sounds (at bases, otherwise clear)
Sternum: Stable
Incision: Clean, Dry, Intact and Dressing Intact
Extremities: Other (+trace edema)
Data Reviewed
-
Lab Results: Results Reviewed
Medications: Active Meds Reviewed
Chest X-Ray: Report Reviewed and Image Reviewed
ECG: Report Reviewed and Image Reviewed
[2024-07-16 05:16] LABS: Blood Urea Nitrogen 18 mg/dl (9-20); Carbon Dioxide 26 mmol/L (22-30); Chloride 98 mmol/L (98-107); Estimated Creatinine Clearance > 125 ml/min; Glucose 99 mg/dl (70-99); Magnesium 2.3 mg/dl (1.6-2.3); Potassium 4.4 mmol/L (3.5-5.1); Sodium 132 mmol/L (135-145); eGFR > 60.00
[2024-07-16] MEDS: ROXICODONE 5 MG PO (05:56)
[2024-07-16] MEDS: TYLENOL 1000 MG PO ×3 (06:45→21:30)
--- NOTE | 2024-07-16 08:00 | PTCARENOTE ---
pt received from previous RN, oriented, OOB in chair. Junctional on the monitor, HR 40-50s. A&V wires in place, pacer box off. SBP 110s. palpable pulses. pt on RA, 95% POX. lungs clear, diminished in bases. R base crackles. IS encouraged. pt abdomen
s/n, denies n/v. diet tolerated well. voids. sternal incision FINANCIAL EXAMINER. chest tube site c/d/i. R groin intact. R knee incision intact. RIJ cordis maintained. see worklist for VS, I&O, and assessment.
[2024-07-16] MEDS: CRESTOR 5 MG PO (08:34)
[2024-07-16] MEDS: VITAMIN C 500 MG PO (08:34)
[2024-07-16] MEDS: ELIQUIS 5 MG PO ×2 (08:34→20:23)
[2024-07-16] MEDS: PROTONIX 40 MG PO (08:35)
[2024-07-16] MEDS: LASIX 80 MG IV (08:35)
[2024-07-16] MEDS: MUCINEX 600 MG PO ×2 (08:35→20:23)
[2024-07-16] MEDS: LIDOCAINE 4% PATCH TOPICAL (08:35)
[2024-07-16] MEDS: SENOKOT-S 1 TABLET PO ×2 (08:35→20:23)
[2024-07-16] MEDS: LOW STRENGTH ASPIRIN 81 MG PO (08:35)
[2024-07-16] MEDS: FEOSOL 325 MG PO (08:35)
[2024-07-16] MEDS: NEURONTIN 100 MG PO ×3 (08:35→21:30)
[2024-07-16] MEDS: KCL 20 MEQ PO (08:35)
[2024-07-16] MEDS: NOVOLOG FLEXPEN-MODERATE RESISTANCE SC ×3 (08:46→17:37)
[2024-07-16 08:47] LABS: Glucose - Point of Care 106 mg/dl (70-99)
[2024-07-16] MEDS: DULCOLAX 5 MG PO (10:13)
--- NOTE | 2024-07-16 10:42 | W.PN.CARDCBS ---
Addendum entered and electronically signed by Sawyer Pérez MD 07/16/24 14:36:
Patient seen, interviewed and examined by me.
Well-appearing, no acute distress
Irregular rate and rhythm with normal S1 and S2, no S3 no S4. There is a grade 1/6 apical holosystolic murmur and no rubs. PMI is normally placed.
Lungs are clear to auscultation bilaterally without wheezes rales or rhonchi.
Abdomen soft nontender nondistended with normoactive bowel sounds
Extremities show trace pretibial edema bilaterally no clubbing or cyanosis.
Neurologic exam is grossly nonfocal.
Review of telemetry and EKGs find that yesterday he had sinus bradycardia with a junctional escape rhythm of approximately 45 bpm, asymptomatic. This morning EKG shows sinus bradycardia at 52 bpm and again the patient described being asymptomatic.
Later today he developed atrial fibrillation and while he could discern the sensation of some irregular beating and palpitations he tells me that at rest and with walking slowly in the hallway he was otherwise asymptomatic. While doing a physical
therapy session which included walking up a flight of stairs he became more tachycardic with rates in atrial fibrillation up to 120-130 bpm. He tells me he felt uncomfortable with his heart going so fast, worsening sensation of palpitations and
even some mild dizziness. No near-syncope or syncope. Sitting down and at rest now heart rate is approximately 100 bpm in atrial fibrillation and he is again asymptomatic. Earlier in the hospital stay given his sinus bradycardia with junctional
escape rhythm amiodarone was stopped. AV rigo blocking agents are currently being avoided over concern for bradycardia should he revert back to sinus rhythm.
I have discussed this in detail with the patient and also with CVICU care team. I have recommended initiating low-dose short acting beta-tushar (metoprolol tartrate 12.5 mg p.o. every 6 hrs) to assess both heart rate control and atrial
fibrillation and to assess effect on bradycardia arrhythmia should he revert back to sinus rhythm.
If he tolerates this low-dose beta-tushar with good clinical effect I would then convert him to long-acting metoprolol succinate 25 mg p.o. twice daily and continue observational follow-up for any symptoms related to sick sinus syndrome. Should he
develop symptomatic bradycardia or we are unable to adequately control his rate in atrial fibrillation dual-chamber permanent pacing followed by amiodarone would be reasonable next step. Okay to resume DOAC today.
All of the patient's questions and all of the CVICU care team questions have been answered.
total time 35 min
Addendum entered and electronically signed by Janna Todd PA-C 07/16/24 13:40:
patient back into afib while climbing stairs with cardiac rehab. felt palpitations. HRs in 120-130s, however improved sitting, now in 70s. d/w EP. hold discharge. place on lopressor 12.5mg Q6H. appears by review of EKG this AM, felt to have some
function of sinus node. hoping to avoid PPM placement if possible. will follow
Original Note:
Today's Communication / Plan
-
continue post op care
7 day rhythm start monitor upon DC
avoiding av rigo blocking agents
continue asa, eliquis
OP cardiac follow up arranged
Impression / Plan
-
.
PCP: [facility] in [place]
Cotton Jammer: none, seen initially by Dr Drew
Impression:
Status post CABG x2 in situ NIEVES to LAD, Ao ro RSVG to diagonal, radical MV repair, maze, ANANT clip 07/11/24
Post op AFib
Post op junctional rhythm
Acute heart failure-new diagnosis upon admission
Atrial fibrillation-new diagnosis upon admission
Severe MR with torn cordae post leaflet.
Mid LAD stenosis involving diagonal branch by cath 07/07/24
DM-2, HbA1c 6.
HTN
Hyperlipidemia
ARGENIS on CPAP
COPD
NSVT on telemetry vs aberrancy
Overweight
Daily alcohol
EKG personally reviewed 07/02/24 2356: NSR, iRBBB
EKG personally reviewed 07/02/24 1608: afib with RVR and iRBBB, HR 115
EKG 07/15/24 personally reviewed: junctional rhythm
Echo Jul 03 2024: EF 65-70% with severe eccentric MR.
CXR 07/14/24: haziness L diaphragm, may represent LLL atelectasis, otherwise clear lungs
Plan:
-64 year-old man presenting in decompensated heart failure found to have severe mitral regurgitation due to torn chordae s/p CABG x2 in situ NIEVES to LAD, Ao ro RSVG to diagonal, radical MV repair, maze, ANANT clip 07/11/24
-remains in junctional rhythm overnight with HRs in 50s. also had some pre and post op paroxysmal afib.
-currently holding all av rigo blocking agents given junctional rhythm. for 7 day rhythm star monitor upon DC. may require PPM
-continue eliquis, asa. of note, patient is between insurances at present. [place] pending. to start new insurance 07/29. will provide with some samples and copay card.
-continue statin
-continue PT/cardiac rehab
-for likely DC today
-OP cardiac follow up arranged
-d/w CT surgery FISH RECEIVER
Progress Note - Cotton Jammer
Subjective
Date of Service: July 16, 2024
feeling well. no complaints.
Objective
Labs:
07/16/24 04:41
07/16/24 04:41
Labs
Hgb 9.7 g/dL (13.0-18.0) L 07/16/24 04:41
Hct 28.1 % (39.0-52.0) L 07/16/24 04:41
Plt Count 221 10^3/uL (130-400) 07/16/24 04:41
PT 15.5 Sec (11.4-14.6) H 07/12/24 03:59
INR 1.24 07/12/24 03:59
APTT 35.5 Sec (23.4-35.0) H 07/11/24 12:59
Sodium 132 mmol/L (135-145) L 07/16/24 04:41
Potassium 4.4 mmol/L (3.5-5.1) 07/16/24 04:41
BUN 18 mg/dl (9-20) 07/16/24 04:41
Creatinine 0.7 mg/dL (0.7-1.3) 07/16/24 04:41
Glucose 99 mg/dl (70-99) 07/16/24 04:41
Vital Signs and I&O:
Vital Signs
Temp Pulse Resp BP Pulse Ox
97.4 F 56 16 115/57 95
07/16/24 08:00 07/16/24 10:00 07/16/24 08:00 07/16/24 08:35 07/16/24 10:19
Vital Signs
Temp Pulse Resp BP Pulse Ox
97.4 F 56 16 115/57 95
07/16/24 08:00 07/16/24 10:00 07/16/24 08:00 07/16/24 08:35 07/16/24 10:19
Intake & Output
07/14/24 07/15/24 07/16/24 07/17/24
07:59 07:59 07:59 07:59
Intake Total 838.4 / 865.1 246.7 / 356.7 240 / 250 10 10
Output Total 2615 / 2615 2045 / 2045 1700 / 1700 700 / 700
Balance -1776.6 / -1749.9 -1798.3 / -1688.3 -1460 / -1450 -690 / -690
Physical Exam
Physical Exam
GEN: No distress, awake, alert, oriented x3. sitting in chair
HEENT: supple, anicteric, mmm, eomi
LUNGS: CTA B/L, no wheezes/rales
CV: Reg, S1/S2, no murmur
ABD: soft, BS+, NT/ND
EXT: No cyanosis, clubbing. trace edema of B/L LE
NEURO: Gross non-focal
SKIN: Warm, pink, dry. No rash. Temp wire in place. Sternotomy incision c/d/i
[2024-07-16] MEDS: DULCOLAX 10 MG RECTAL (11:30)
--- NOTE | 2024-07-16 12:15 | PTCARENOTE ---
pt VSS, Dulcolax PO and suppository given for constipation. +BM. pt completed stairs w/ CR, @~1135 pt went into A-fib w/ frequent ectopy, WORKERS' COMPENSATION MAGISTRATE Millie Tong aware. EKG completed.
[2024-07-16] MEDS: LOPRESSOR 12.5 MG PO ×2 (13:48→20:22)
[2024-07-16] MEDS: NSS 500 IV (13:48)
[2024-07-16 14:50] LABS: Glucose - Point of Care 125 mg/dl (70-99)
--- NOTE | 2024-07-16 15:16 | CM ---
Followed up with patient and his cobra coverage. Cobra will take into effect on July 29, along with prescription coverage. I gave the patient a free 30 day coupon for Kei to help with the first 30 days.
--- NOTE | 2024-07-16 16:00 | PTCARENOTE ---
pt VS completed, RADIO COMMENTATOR aware of SBP. denies lightheadedness or dizziness. voids in urinal.
[2024-07-16] MEDS: LASIX 40 MG IV (17:07)
[2024-07-16 17:36] LABS: Glucose - Point of Care 143 mg/dl (70-99)
--- NOTE | 2024-07-16 20:00 | PTCARENOTE ---
assumed care of pt from previous RN. pt A&Ox4, resting in chair at time of assessment. A fib on tele-monitor. temp epicardial A/V wires. pulse generator on w/ backup settings VVI 60/10/2. wires not plugged in to pulse generator. POX 95% on RA. lungs
diminished in the bases. abd s/n, +BS. pt voiding clear, yellow urine in urinal. all surgical sites stable. R IJ cordis w/ KVO. see worklist for complete nursing assessment, interventions, VS, and I&Os.
[2024-07-16] MEDS: FLEXERIL 5 MG PO (20:23)
[2024-07-16] MEDS: ANESTHETIC LOZENGE 1 LOZENGE PO (21:30)
[2024-07-16 22:34] LABS: Glucose - Point of Care 134 mg/dl (70-99)
[2024-07-17] VITALS (10 sets, daily range): BP systolic 85–143; BP diastolic 61–85; PULSE 106; O2SAT 97–99; BMI 34.6
--- NOTE | 2024-07-17 | PTCARENOTE ---
assessment remains unchanged. a fib on tele-monitor. POX 97% on RA. pt placed on home cpap. CT PA re-timed admin of lopressor. will recheck BP at 0300.
[2024-07-17] MEDS: LOPRESSOR PO (00:42)
[2024-07-17] MEDS: LOPRESSOR 12.5 MG PO ×3 (02:34→08:54)
[2024-07-17 03:20] LABS: Hematocrit 31.9 % (39.0-52.0); Mean Corp Hgb Conc. 34.5 g/dL (33.0-37.0); Mean Corpuscular Hgb 31.2 pg (27.0-31.0); Mean Corpuscular Volume 90.4 fL (80.0-94.0); Mean Platelet Volume 8.3 fL (7.4-10.4); Platelet Count 273 10^3/uL (130-400); Red Blood Cell Count 3.53 10^6/uL (4.70-6.10); Red Cell Dist. Width 12.4 % (11.5-14.5); White Blood Cell Count 6.5 10^3/uL (4.8-10.8)
[2024-07-17 03:33] LABS: Blood Urea Nitrogen 15 mg/dl (9-20); Calcium 7.7 mg/dl (8.4-10.2); Carbon Dioxide 25 mmol/L (22-30); Chloride 99 mmol/L (98-107); Estimated Creatinine Clearance > 125 ml/min; Glucose 98 mg/dl (70-99); Magnesium 2.4 mg/dl (1.6-2.3); Potassium 4.2 mmol/L (3.5-5.1); Sodium 137 mmol/L (135-145); eGFR > 60.00
[2024-07-17] MEDS: TYLENOL 1000 MG PO ×2 (06:53→14:36)
--- NOTE | 2024-07-17 07:55 | W.PN.CT ---
Today's Communication / Plan
-
-pod #6
-a-fib overnight 90s-low 100s
-converted to sinus at 5:40am with 2.6 sec conversion pause. Pt was sleeping and asymptomatic. He converted back to a-fib shortly'
-continue po Lopressor, ASA and Eliquis
-outpatient Rhythm monitor per Cardiology
-possible discharge
Assessment / Plan
-
Assessment:
-S/P Sternotomy with aortic and bicaval cannulation/CABG x 2 [in situ NIEVES to LAD, Ao to RSVG to diagonal]/R EVH/Radical mitral valve repair [triangular resection of P2, primary repair of P2 and P1, closure of cleft of P2 and P3, plication of the
free margin at A2 A3, single [place]-Jonathan cord to the posterior medial papillary muscle head to the P2 segment, 34 mm band annuloplasty]/Left atrial maze using cryo ablation/Left atrial appendage exclusion [35 mm clip, additional suture closure of the
internal orifice was required], by Dr. Maldonado, 07/11/24, pod#6
-Severe eccentric MR secondary to prolapse as well as flail with torn cords at the P2 scallop
-LVEF 60-65% per intraop DOROTHY
-Moderate dilated left atrium
-Single vessel CAD (70% mid/origin of diag) per cath 07/07/24
-New onset Atrial fibrillation (was on Eliquis)
-Acute on chronic Diastolic CHF with associated respiratory failure from volume overload, LVEDP was elevated, right heart filling pressures were also elevated
-Small b/l pleural effusion with adjacent atelectasis
-HTN
-HLD
-T2DM (hgb A1C 6.0, diet controlled)
-Class 2 obesity (BMI 35.2)
-ARGENIS (uses CPAP)
-COPD (pt denies)
-B/L knee arthroscopy
-S/p Cholecystectomy
-Acute postop blood loss/Anemia (stable without transfusion)
-Acute pre and postop atelectasis
-Acute postop hypovolemia with subsequent hypervolemia
-Acute postop hypoxemia (PO2 60's per ABG)
-Acute postop junctional rhythm in the 40's (requiring A/V pacing @ 70 bpm)
Discussed patient care with: Nursing and Care Team
Subjective
Procedure
S/P Sternotomy with aortic and bicaval cannulation/CABG x 2 [in situ NIEVES to LAD, Ao to RSVG to diagonal]/R EVH/Radical mitral valve repair [triangular resection of P2, primary repair of P2 and P1, closure of cleft of P2 and P3, plication of the
free margin at A2 A3, single [place] cord to the posterior medial papillary muscle head to the P2 segment, 34 mm band annuloplasty]/Left atrial maze using cryo ablation/Left atrial appendage exclusion [35 mm clip, additional suture closure of the
internal orifice was required], by Dr. Maldonado, 07/11/24
-
Date of Service: July 17, 2024
Objective Data
-
Lab Results
07/17/24 02:39
07/17/24 02:39
PT 15.5 Sec (11.4-14.6) H 07/12/24 03:59
INR 1.24 07/12/24 03:59
APTT 35.5 Sec (23.4-35.0) H 07/11/24 12:59
Vital Signs
Vital Signs
Temp Pulse Resp BP Pulse Ox
98.8 F 108 16 103/84 95
07/17/24 00:00 07/17/24 07:00 07/17/24 00:00 07/17/24 06:50 07/17/24 06:50
CT Intake/Output/Weight
07/16/24 07/17/24 07/17/24
18:59 06:59 18:59
Intake Total 50 / 130 80 / 130
Output Total 1850 / 3850 2000 / 3850
Balance -1800 / -3720 -1920 / -3720
SaO2: 95
Physical Exam
-
General: Awake and AOx3
Cardiovascular: Regular rate & rhythm, No Murmurs and No Rub
Respiratory: Decreased Breath Sounds
Sternum: Stable
Incision: Clean and Dressing Intact
Extremities: Other (trace edema b/l)
Data Reviewed
-
Lab Results: Results Reviewed
Medications: Active Meds Reviewed
Chest X-Ray: Report Reviewed and Image Reviewed
ECG: Report Reviewed and Image Reviewed
[2024-07-17] MEDS: KCL 20 MEQ PO (08:07)
[2024-07-17] MEDS: VITAMIN C 500 MG PO (08:07)
[2024-07-17] MEDS: SENOKOT-S 1 TABLET PO (08:07)
[2024-07-17] MEDS: FEOSOL 325 MG PO (08:07)
[2024-07-17] MEDS: PROTONIX 40 MG PO (08:07)
[2024-07-17] MEDS: ELIQUIS 5 MG PO (08:07)
[2024-07-17] MEDS: LOW STRENGTH ASPIRIN 81 MG PO (08:07)
[2024-07-17] MEDS: NEURONTIN 100 MG PO (08:07)
[2024-07-17] MEDS: MUCINEX 600 MG PO (08:07)
[2024-07-17] MEDS: CRESTOR 5 MG PO (08:07)
[2024-07-17] MEDS: NOVOLOG FLEXPEN-MODERATE RESISTANCE SC (08:09)
[2024-07-17] MEDS: LIDOCAINE 4% PATCH TOPICAL (08:09)
[2024-07-17 08:13] LABS: Glucose - Point of Care 132 mg/dl (70-99)
--- NOTE | 2024-07-17 09:30 | PTCARENOTE ---
Received pt from gamma ray operator RN; Pt AAOx3 and resting comfortably in chair; A-fib on monitor and VSS; RIJ Cordis patent; Lungs diminished; IS to 1250; positive bowel sounds; pt voiding yellow urine; palpable pulses throughout; no edema noted;
surgical sites C/D/I; see nursing documentation for further details.
--- NOTE | 2024-07-17 09:39 | W.PN.CARDCBS ---
Addendum entered and electronically signed by Tesfaye Vuong MD 07/17/24 12:50:
patient seen and discussed plan of care with by phone
20 min discussion with patient, , nursing and CT surgery team
Tele reviewed
2.6s pause overnight, SB, slow AF noted each asymptomatic
Discussed with above that there is no acute need for permanent pacing although we will place an ambulatory monitor at discharge.
Exam:
sternum intact
cor irreg irreg
aao x3
non focal neurologically
remainder of exam deferred and as per PA-C note
Impression:
Status post CABG x2 in situ NIEVES to LAD, Ao ro RSVG to diagonal, radical MV repair, maze, ANANT clip 07/11/24
Post op AFib
Post op junctional rhythm
Acute heart failure-new diagnosis upon admission
Atrial fibrillation-new diagnosis upon admission
Severe MR with torn cordae post leaflet.
Mid LAD stenosis involving diagonal branch by cath 07/07/24
DM-2, HbA1c 6.
HTN
Hyperlipidemia
ARGENIS on CPAP
COPD
NSVT on telemetry vs aberrancy
Overweight
Daily alcohol
EKG personally reviewed 07/02/24 2356: NSR, iRBBB
EKG personally reviewed 07/02/24 1608: afib with RVR and iRBBB, HR 115
EKG 07/15/24 personally reviewed: junctional rhythm
Echo Jul 03 2024: EF 65-70% with severe eccentric MR.
CXR 07/14/24: haziness L diaphragm, may represent LLL atelectasis, otherwise clear lungs
Plan:
-64 year-old man presenting in decompensated heart failure found to have severe mitral regurgitation due to torn chordae s/p CABG x2 in situ NIEVES to LAD, Ao ro RSVG to diagonal, radical MV repair, maze, ANANT clip 07/11/24
-he continues with paroxysms of afib (symptomatic with elevated rates with exercise) as well as junctional escape rhythm with HRs in 40-50s. he had a 2.6 second conversion pause overnight. largely asymptomatic. reviewed with EP. plan for toprol 25mg
daily upon DC with 7 day rhythm star monitor and hopeful normal conduction will return. if not, will require PPM
-continue asa, eliquis. of note, patient is between insurances at present. [place] pending. to start new insurance 07/29. will provide with some samples and copay card.
-continue statin
-continue PT/cardiac rehab
-for likely DC today
-OP cardiac follow up arranged
-d/w CT surgery POWER SAW MECHANIC, nursing
Original Note:
Today's Communication / Plan
-
toprol 25mg daily, asa, eliquis 5mg BID
7 day rhythm star monitor upon DC
OP cardiac follow up arranged
Impression / Plan
-
.
PCP: [facility] in [place]
Transformation Coach: none, seen initially by Dr Drew
Impression:
Status post CABG x2 in situ NIEVES to LAD, Ao ro RSVG to diagonal, radical MV repair, maze, ANANT clip 07/11/24
Post op AFib
Post op junctional rhythm
Acute heart failure-new diagnosis upon admission
Atrial fibrillation-new diagnosis upon admission
Severe MR with torn cordae post leaflet.
Mid LAD stenosis involving diagonal branch by cath 07/07/24
DM-2, HbA1c 6.
HTN
Hyperlipidemia
ARGENIS on CPAP
COPD
NSVT on telemetry vs aberrancy
Overweight
Daily alcohol
EKG personally reviewed 07/02/24 2356: NSR, iRBBB
EKG personally reviewed 07/02/24 1608: afib with RVR and iRBBB, HR 115
EKG 07/15/24 personally reviewed: junctional rhythm
Echo Jul 03 2024: EF 65-70% with severe eccentric MR.
CXR 07/14/24: haziness L diaphragm, may represent LLL atelectasis, otherwise clear lungs
Plan:
-64 year-old man presenting in decompensated heart failure found to have severe mitral regurgitation due to torn chordae s/p CABG x2 in situ NIEVES to LAD, Ao ro RSVG to diagonal, radical MV repair, maze, ANANT clip 07/11/24
-he continues with paroxysms of afib (symptomatic with elevated rates with exercise) as well as junctional escape rhythm with HRs in 40-50s. he had a 2.6 second conversion pause overnight. largely asymptomatic. reviewed with EP. plan for toprol 25mg
daily upon DC with 7 day rhythm star monitor and hopeful normal conduction will return. if not, will require PPM
-continue asa, eliquis. of note, patient is between insurances at present. [place] pending. to start new insurance 07/29. will provide with some samples and copay card.
-continue statin
-continue PT/cardiac rehab
-for likely DC today
-OP cardiac follow up arranged
-d/w CT surgery POWER SAW MECHANIC, nursing
Progress Note - Transformation Coach
Subjective
Date of Service: July 17, 2024
feels well this morning. no palpitations, dizziness
Objective
Labs:
07/17/24 02:39
07/17/24 02:39
Labs
Hgb 11.0 g/dL (13.0-18.0) L 07/17/24 02:39
Hct 31.9 % (39.0-52.0) L 07/17/24 02:39
Plt Count 273 10^3/uL (130-400) D 07/17/24 02:39
PT 15.5 Sec (11.4-14.6) H 07/12/24 03:59
INR 1.24 07/12/24 03:59
APTT 35.5 Sec (23.4-35.0) H 07/11/24 12:59
Sodium 137 mmol/L (135-145) 07/17/24 02:39
Potassium 4.2 mmol/L (3.5-5.1) 07/17/24 02:39
BUN 15 mg/dl (9-20) 07/17/24 02:39
Creatinine 0.6 mg/dL (0.7-1.3) L 07/17/24 02:39
Glucose 98 mg/dl (70-99) 07/17/24 02:39
Vital Signs and I&O:
Vital Signs
Temp Pulse Resp BP Pulse Ox
98 F 109 20 103/81 96
07/17/24 08:00 07/17/24 08:08 07/17/24 08:00 07/17/24 08:08 07/17/24 09:36
Vital Signs
Temp Pulse Resp BP Pulse Ox
98 F 109 20 103/81 96
07/17/24 08:00 07/17/24 08:08 07/17/24 08:00 07/17/24 08:08 07/17/24 09:36
Intake & Output
07/15/24 07/16/24 07/17/24 07/18/24
07:59 07:59 07:59 07:59
Intake Total 246.7 / 356.7 240 / 250 130 / 610 480 / 480
Output Total 2045 / 2045 1700 / 1700 3850 / 3850
Balance -1798.3 / -1688.3 -1460 / -1450 -3720 / -3240 480 / 480
Physical Exam
Physical Exam
GEN: No distress, awake, alert, oriented x3. sitting in chair
HEENT: supple, anicteric, mmm, eomi
LUNGS: CTA B/L, no wheezes/rales
CV: Irreg, S1/S2, no murmur
ABD: soft, BS+, NT/ND
EXT: No cyanosis, clubbing. trace edema of B/L LE
NEURO: Gross non-focal
SKIN: Warm, pink, dry. No rash. Temp wire in place. Sternotomy incision c/d/i
[2024-07-17] MEDS: NOVOLOG FLEXPEN-MODERATE RESISTANCE 1 UNITS SC (11:45)
[2024-07-17 11:48] LABS: Glucose - Point of Care 193 mg/dl (70-99)
--- NOTE | 2024-07-17 13:26 | PTCARENOTE ---
Assessment unchanged; A-fib on monitor and VSS; pt awaiting discharge paperwork.
--- NOTE | 2024-07-17 14:13 | W.DCSUMMARY ---
Discharge Summary
Discharge Data
Date of Admission: 07/02/24
Date of Discharge: 07/17/24
-
Pending Results: No
Hospital Course
Primary care physician:
Dr. Breanna Dailey
Outpatient business applications specialist:
Dr. Jake Drew
Inpatient consultants:
[facility]
Procedures:
1. Coronary artery bypass grafting x 2,
2. Radical mitral valve repair with #34 millimeter band annuloplasty
3. Left atrial maze using cryoablation
4. Left atrial appendage exclusion with number [address] Javier Maldonado MD on 07/11/2024
Primary Diagnosis:
1. Respiratory failure secondary to mitral valve insufficiency
2. New onset atrial fibrillation secondary to mitral valve insufficiency
3. Severe mitral valve regurgitation, symptomatic
4. Coronary artery disease
Secondary Diagnoses:
1. Respiratory failure secondary to mitral valve insufficiency
2. New onset atrial fibrillation secondary to mitral valve insufficiency
3. Severe mitral valve regurgitation, symptomatic
4. Coronary artery disease
5. Hypertension
6. Hyperlipidemia
7. Kow-jpkfjth-aujripcuv diabetes mellitus type 2, hemoglobin A1c 6.0
8. Obstructive sleep apnea with use of continuous positive airway pressure machine
9. Obesity, BMI 34.6
HPI:
Patient is a 64-year-old male who denies any significant history in the past of mitral valve disease. He presented with new onset atrial fibrillation as well as shortness of breath and respiratory failure. Patient also subsequently has gained
significant amount of weight over the past several days. Patient underwent further workup and was found to have severe mitral valve insufficiency. Subsequent left heart catheterization on this admission as part of his workup revealed newly
diagnosed proximal LAD disease. Patient was still symptomatic and was unable to be discharged home. He continued aggressive IV rinses. CT surgery was consulted for mitral valve repair, modified maze procedure, left atrial appendage ligation, and
coronary artery revascularization x 2.
Hospital course:
Patient presented to the operating room on the date described above for the procedure described above. Patient tolerated procedure well. Patient was recovered in the cardiovascular ICU. Patient was AV paced via temporary epicardial pacing wires
had a intrinsic rhythm of junctional heart rates in the 40s underneath. He remained on dobutamine and Levophed. Patient had low saturations and his PEEP was increased to 10. He was successfully extubated at 1630 on postoperative day #0.
By postoperative day #1 dobutamine was slowly weaned. Mixed venous's were in the 60s. He remained junctional underneath his pacer. He was declined and his dobutamine was off by the end of that morning. On postoperative day #2 he went into atrial
fibrillation overnight. He remained rate controlled throughout the day and on amnio drip at 0.5. He remained hemodynamically stable. Amiodarone and beta-tushar were subsequently held later that day due to bradycardia. On postoperative day #3
patient converted back to sinus bradycardia with rates in the 40s. Amiodarone drip was continued to be put on hold. Patient throughout the day had subsequent issues of atrial fibrillation. Discussion was had with cardiology and amiodarone and
Lopressor were resumed. During the next subsequent days the patient underwent diuresis and was started on Eliquis for anticoagulation due to his paroxysmal atrial fibrillation. Aggressive diuresis was continued and he was tolerating beta-tushar.
On postoperative day #6 patient again had intermittent episodes of atrial fibrillation/sinus rhythm. He was transitioned to Toprol-XL 25 mg daily. He was tolerating Eliquis. His Cordis was removed without issues. His temporary pacing wires were
cut at the bedside. His home heart rate monitor per cardiology was set up and in place. And the patient was medically stable to be discharged to home. He will be sent home with a 5-day course of Lasix 40 mg p.o. daily as well as 20 mill
equivalents of potassium for electrolyte replacement.
Home medication changes:
STOP taking your benazepril and ibuprofen
Please weigh yourself everyday while on lasix
You will be discharged with a heart monitor that is managed by [facility].
Take Lasix 40 mg p.o. x 5 days and then stop unless instructed otherwise.
Take potassium chloride 20 mill equivalents p.o. daily x 5 days with Lasix and stop unless instructed otherwise.
Discharge Plan
-
Patient Disposition: Home (Routine Discharge)
Discharge Diagnosis/Procedures: cardiac catheterization, MV repair, CABG x2, MAZE, LAAC
Condition: Fair
Diet: Low Cholesterol
Activity: No strenuous activity
Driving Restrictions: No driving for 24 hours
Bathing Restrictions: OK to Shower
Blood Work: Repeat BMP and magnesium 07/23 AND 07/30
Other Services: Cardiac Rehab
Specialty Instructions: Weigh Daily- Call MD for wt gain/loss 3 lbs overnight/5 lbs in 1 week
Activity Restrictions/Additional Instructions:
ACTIVITY:
-No strenuous activity: no heavy lifting, pushing, pulling anything over 15 pounds for one month
-continue to use stairs as tolerated
DRIVING RESTRICTIONS:
-No driving for one month or until approved by your surgeon
WOUND CARE:
-Shower daily. Use soap & water.
-No lotions, creams or powders on incision area.
DIET:
-continue a low fat/low cholesterol diet.
-IF you are diabetic, continue carb controlled diet.
CARDIAC REHAB:
-Please make appointment to start in 5-6 weeks with your local hospital program. (See Cardiac Rehabilitation Discharge Booklet).
SPECIALTY INSTRUCTIONS:
-Weigh yourself daily. Call your physician for any weight gain/loss of 3 lbs overnight or 5 lbs in one week.
-REPORT any clicking noise or uneven appearance of your sternum to your surgeon immediately.
-If you smoke, you are instructed to quit. The [facility] smoking hotline phone number is [phone]
Instructions: *PCP/Other [place] Heart Failure Instructions
Stand Alone Forms: DC Instructions- Cath/EP Lab
Referrals:
CT Transitional Care Nurse [Outside] - in one to two days
(
The Cardiothoracic Transitional Care Nurse will call you to set up a visit in 1-2 days.)
Nara Ornelas PA-C [Specified Professional Personl] - 08/25/24 9:20 am
David Quintanilla MD [Active] - in three to four weeks (right upper lobe patchy opacities seen on CT Chest from 07/04/2024; need follow up Chest to follow up to resolution)
Breanna Dailey DO [Family Provider] - in four to six weeks (Please make an appointment in four to six weeks. )
Javier Maldonado MD [Active] - 08/14/24 1:15 pm
Additional Discharge Medication Instructions: STOP taking your benazepril and ibuprofen
Please weigh yourself everyday while on lasix
You will be discharged with a heart monitor that is managed by [facility].
Take Lasix 40 mg p.o. x 5 days and then stop unless instructed otherwise.
Take potassium chloride 20 mill equivalents p.o. daily x 5 days with Lasix and stop unless instructed otherwise.
Prescriptions:
New
cyclobenzaprine 10 mg Tablet
5 mg PO Q8HPRN PRN (Reason: muscle spasm) Qty: 30 0RF
acetaminophen 325 mg Tablet
650 mg PO Q4HPRN PRN (Reason: mild pain,headache,temp >101F ) Qty: 0 0RF
aspirin 81 mg Tablet,Chewable
81 mg PO DAILY Qty: 0 0RF
oxycodone 5 mg Tablet
5 mg PO Q4HPRN PRN (Reason: severe pain) Qty: 15 0RF
Eliquis 5 mg Tablet
5 mg PO BID Qty: 60 0RF
guaifenesin 600 mg Tablet Extended Release 12hr
600 mg PO Q12 PRN (Reason: cough) Qty: 60 0RF
alprazolam 0.25 mg Tablet
0.25 mg PO Q6HPRN PRN (Reason: anxiety) Qty: 24 0RF
metoprolol succinate 25 mg Tablet Extended Release 24 Hr
25 mg PO DAILY Qty: 30 1RF
furosemide [Lasix] 40 mg tablet
40 mg PO DAILY Qty: 5 0RF
Rx Instructions:
Take 40 mg daily for 5 days and then stop unless instructed otherwise.
potassium chloride 20 mEq tablet extended release
20 meq PO DAILY Qty: 5 0RF
Rx Instructions:
Take 20 meq daily with Lasix for 5 days and then stop unless instructed otherwise.
Continued
rosuvastatin 5 mg Tablet
5 mg PO DAILY
Discontinued
ibuprofen 200 mg Tablet
400 mg PO Q6HPRN PRN (Reason: mild pain)
benazepril 20 mg Tablet
20 mg PO DAILY
Care Plan Goals
Care Plan Goals:
Problem: Readiness for enhanced knowledge related to diagnosis and treatment plan
Goal: Understand your diagnosis and treatment plan needs, including medications if applicable.
Instructions: Know your diagnosis, underlying causes and treatment plan options, including medications if applicable. Consult with your health care team to learn about your diagnosis and treatment plan, including medications if applicable.
Discharge Date and Time
Print Language: MAURITIAN
--- NOTE | 2024-07-17 15:02 | PTCARENOTE ---
A/V wires cut by CVPA; Cordis removed per order; pt showered and dressed self; lunchroom monitor removed; Franklin Todd PA in with pt and lynx monitor applied and all questions answered; discharge paper gone over with pt and at bedside and all
questions answered.
--- NOTE | 2024-07-17 16:14 | W.PA-PDMP ---
[place]-PDMP
-
Checked the [place]- Prescription Drug Monitoring Program website, no red flags identified; safe to proceed with prescription.
== END 2024-07-17 16:00 | disposition home or self-care (01) | DRG 216 ==
LOC: CVICU 22:44
PROVIDERS: Anesthesiology; Emergency Medicine; Family Medicine; Internal Medicine; Internal Medicine Cardiovascular Disease; Nurse Practitioner; Physician Assistant; Physician Assistant Medical; ADMITTING PHYSICIAN Internal Medicine; ATTENDING PHYSICIAN Thoracic Surgery (Cardiothoracic Vascular Surgery); CONSULT PHYSICIAN Internal Medicine Critical Care Medicine; EMERGENCY PHYSICIAN Emergency Medicine; FAMILY PHYSICIAN Family Medicine; OTHER PHYSICIAN Nuclear Medicine Nuclear Cardiology
PROC: B24BZZ4 Ultrasonography of Heart with Aorta, Transesophageal (ICD-10-PCS; 2024-07-04)
PROC: 4A023N8 Measurement of Cardiac Sampling and Pressure, Bilateral, Percutaneous Approach (ICD-10-PCS; 2024-07-07)
PROC: B2151ZZ Fluoroscopy of Left Heart using Low Osmolar Contrast (ICD-10-PCS; 2024-07-07)
PROC: B2111ZZ Fluoroscopy of Multiple Coronary Arteries using Low Osmolar Contrast (ICD-10-PCS; 2024-07-07)
PROC: 02L70CK Occlusion of Left Atrial Appendage with Extraluminal Device, Open Approach (ICD-10-PCS; 2024-07-11)
PROC: 5A1221Z Performance of Cardiac Output, Continuous (ICD-10-PCS; 2024-07-11)
PROC: 02U Heart and Great Vessels, Supplement (ICD-10-PCS; 2024-07-11)
PROC: 02100Z9 Bypass Coronary Artery, One Artery from Left Internal Mammary, Open Approach (ICD-10-PCS; 2024-07-11)
PROC: 021009W Bypass Coronary Artery, One Artery from Aorta with Autologous Venous Tissue, Open Approach (ICD-10-PCS; 2024-07-11)
PROC: 02580ZZ Destruction of Conduction Mechanism, Open Approach (ICD-10-PCS; 2024-07-11)
DX: I25.118 Atherosclerotic heart disease of native coronary artery with other forms of angina pectoris (principal); I50.43 Acute on chronic combined systolic (congestive) and diastolic (congestive) heart failure; J96.01 Acute respiratory failure with hypoxia; I51.1 Rupture of chordae tendineae, not elsewhere classified; I47.20 Ventricular tachycardia, unspecified; D62 Acute posthemorrhagic anemia; E87.1 Hypo-osmolality and hyponatremia; J98.11 Atelectasis; I44.2 Atrioventricular block, complete; I34.0 Nonrheumatic mitral (valve) insufficiency; E11.9 Type 2 diabetes mellitus without complications; I11.0 Hypertensive heart disease with heart failure; E78.00 Pure hypercholesterolemia, unspecified; G47.33 Obstructive sleep apnea (adult) (pediatric); I48.0 Paroxysmal atrial fibrillation; F41.9 Anxiety disorder, unspecified; J44.9 Chronic obstructive pulmonary disease, unspecified; E66.01 Morbid (severe) obesity due to excess calories; E66.3 Overweight; E86.1 Hypovolemia; Z68.34 Body mass index [BMI] 34.0-34.9, adult; Z68.35 Body mass index [BMI] 35.0-35.9, adult; Z79.84 Long term (current) use of oral hypoglycemic drugs; Z79.899 Other long term (current) drug therapy
CPT/HCPCS: 88305; 93308; 70355; 70450; 71045; 71046; 71250; 74176; 80048; 80053; 80061; 81003; 81015; 82248; 82330; 82565; 82805; 82810; 82947; 82962; 83036; 83735; 83880; 84100; 84132; 84145; 84302; 84443; 84484; 84520; 85014; 85018; 85025; 85027; 85049; 85610; 85730; 86850; 86900; 86901; 86920; 87040; 93005; 93306; 93312; 93320; 93321; 93325; 93460; 93880; 94002; 96374; 99285; C1894; J2916; Q9967

== ENCOUNTER 2024-09-03 14:49 | Emergency (ER) | payer OTHER, SELFPAY ==
[2024-09-03 15:28] VITALS: BP 122/89
[2024-09-03 15:38] VITALS: BMI 34.2
--- NOTE | 2024-09-03 15:38 | ED.GENMED ---
History of Present Illness
General
Chief Complaint: Breathing Problem
Time Seen by Provider: 09/03/24 15:00
History of Present Illness
History of Present Illness:
64-year-old male with history of hypertension, hyperlipidemia, A-fib, congestive heart failure presents to the emergency department for evaluation of persistent and intermittent shortness of breath over the past 8 days. He is 7 weeks status post
open CABG x 2, mitral valve repair, left atrial appendage clipping and left atrial Maze procedure done at this hospital. His postoperative course has been complicated by intermittent bouts of atrial tachyarrhythmias. He is currently on
beta-blockers as well as Eliquis. Had a court monitor placed yesterday at the cardiology office to assess his further atrial tachyarrhythmias. In regards to his coughing reports that is occasionally productive of green to brown sputum, he denies
chest pain but does have occasional shortness of breath particular during coughing fits. No fevers or night sweats. Multiple ill children in his home recently.
Past History
Past History
ED Past Medical History: Hypercholesterolemia and NIDDM
ED Past Surgical History: Cholecystectomy and Orthopedic
Social History
Tobacco: Non-smoker
Alcohol: Occasional
Drug: None
Living: with family
Employment: Employed
Review of Systems
Review of Systems
Allergies reviewed?: Yes
All Other Systems: ROS reviewed and negative except as documented in HPI and ROS
Phy Exam
Physical Exam
Physical Exam:
GEN: Well appearing, NAD, WDWN
Eyes: PERRLA, EOMs intact, no scleral icterus
HENT: NCAT, oral mucosa moist, no JVD
Lungs: CTAB, no wheezes, rales, rhonchi, normal chest wall excursion
Cardiac: Tachycardic, regular
Abdomen: S, NT, ND, NABS, no masses or hepatosplenomegaly
Neuro: AO x 3
MSK: No gross deformity or ecchymosis. No edema. No digital clubbing
Skin: No rashes, petechiae. Normal color, no pallor or jaundice.
Psych: Calm, cooperative, proper hygiene
Scores
Heart Failure Risk
Heart Failure Risk Score: Not Applicable
Course
Orders/Labs/Results
Orders:
Orders
09/03/24 14:57
Electrocardiogram (*1) Urgent
Reason for Study: Shortness of Breath
09/03/24 14:58
EKG- Treatment ONCE
09/03/24 15:17
CR Chest - 2 Views Urgent
Comment:
Reason For Exam: cough
09/03/24 15:35
Basic Metabolic Panel Urgent
COVID-19 Antigen Urgent
Source: Nasal Swab
Complete Blood Count/With Diff Urgent
Influenza A+B Rapid Molecular Urgent
PAT Source: Nasal Swab
Specimen Description:
09/03/24 15:54
Pro-BNP [NT-proBNP] Urgent
Troponin I Urgent
09/03/24 17:25
Comprehensive Metabolic Panel Urgent
09/03/24 18:06
Amiodarone [Pacerone] 400 mg PO NOW STA
Abnormal Lab Results
09/03/24 09/03/24 09/03/24
15:35 15:54 17:25
RBC 4.04 L 10^6/uL
(4.70-6.10)
Hgb 11.6 L g/dL
(13.0-18.0)
Hct 35.2 L %
(39.0-52.0)
Absolute Monos (auto) 0.7 H 10^3/uL
(0.1-0.6)
Monocytes % 10.7 H %
(1.7-9.3)
Glucose 109 H mg/dl
(70-99)
Troponin I 0.076 H* ng/ml
Total Protein 6.2 L g/dl
(6.3-8.2)
09/03/24 15:35
09/03/24 17:25
Vital Signs
Initial and Last Documented VS:
Initial Vital Signs
BP
122/89
09/03/24 15:28
Last Documented Vital Signs
Temp Pulse Resp BP Pulse Ox
98.3 F 130 31 121/93 98
09/03/24 15:44 09/03/24 18:14 09/03/24 16:30 09/03/24 18:14 09/03/24 16:45
MDM/Problems Addressed
MDM/Problems Addressed:
In regards to the patient's cough it is likely a viral syndrome however given his recent cardiac issues we will treat this as a possible mycoplasma pneumonia with doxycycline particular given the duration greater than 1 month with lack of
improvement. Ultimately there is no evidence of infiltrate on chest x-ray. In regards to the persistent tachyarrhythmia cardiology did evaluate the patient at this time is felt that cardioversion will not likely provide sustained benefit thus will
discharge the patient on amiodarone, loading dose given orally in the ER today. Patient will follow-up in the office next week to discuss further steps of therapy
Comment
Comment:
EKG independently interpreted by me shows a narrow complex tachycardia at a rate of 133, most likely atrial tachycardia
*Critical Care Note
Total Time (30-74mins, 75-104mins- exclusive of procedures): Not Applicable
Update Note
Update Note:
1648: I discussed the case with cardiology and at this time was recommended to consider cardioversion with or without addition of amiodarone for persistent atrial tachycardia. I discussed these options with the patient and his spouse at the bedside
however they are requesting cardiology consultation prior to making any decisions. They are concerned that they have not seen a cardiology physician since hospital discharge although did see one of the physician assistants in the office last week.
[place] connect message sent to cardiology on-call, and they are willing to consult on the patient
ED Attending Note
-
Portions of this chart may have been created with voice recognition software.� Occasional wrong word or��sound alike� substitutions may have occurred due to the inherent limitations of voice recognition software.
Discharge Plan
Departure
Patient Disposition: Home (Routine Discharge)
Date of Disposition: 09/03/24
Time of Disposition: 18:07
Patient with high blood pressure during this ER visit?: No
Discharge Problem:
Atrial tachycardia, Cough
Instructions: Atypical Pneumonia (Mycoplasma and Viral) (DC)
Prescriptions:
New
amiodarone 200 mg tablet
200 mg PO BID 30 Days Qty: 60 0RF
doxycycline hyclate 100 mg capsule
100 mg PO BID 5 Days Qty: 10 0RF
codeine-guaifenesin 10-100 mg/5 mL liquid
5 ml PO Q6H PRN (Reason: Cough) Qty: 120 0RF
benzonatate 200 mg capsule
200 mg PO TID PRN (Reason: Cough) Qty: 20 0RF
No Action
rosuvastatin 5 mg Tablet
5 mg PO DAILY
acetaminophen 325 mg Tablet
650 mg PO Q4HPRN PRN (Reason: mild pain,headache,temp >101F ) Qty: 0 0RF
aspirin 81 mg Tablet,Chewable
81 mg PO DAILY Qty: 0 0RF
Eliquis 5 mg Tablet
5 mg PO BID Qty: 60 0RF
metoprolol succinate 25 mg Tablet Extended Release 24 Hr
25 mg PO DAILY Qty: 30 1RF
metoprolol succinate 25 mg Tablet Extended Release 24 Hr
12.5 mg PO DAILY@1999
Mucinex DM 30-600 mg Tablet Extended Release 12 Hr
1 tab PO Q12H
Referrals:
Char Obrien DO [Family Provider] -
Interventions
Interventions:
*Risk Screen - Suicide Last Done: 09/03/24 14:52
*General Assessment Last Done: 09/03/24 14:52
*Neglect/Abuse Screening Last Done: 09/03/24 14:52
ED- Fall Risk Assessment Last Done: 09/03/24 15:38
*ED COVID-19 Vaccine History Last Done: 09/03/24 15:38
ED- Cardiac Assessment Last Done: 09/03/24 15:44
ED- Pulmonary Assessment Last Done: 09/03/24 15:44
Discharge Date and Time
Print Language: GUINEAN
[2024-09-03 15:48] LABS: % Basophils 0.5 % (0-2); % Eosinophils 0.8 % (0-6); % Immature Granulocytes 0.2 % (0-0.5); % Lymphocytes 22.8 % (20.5-51.1); % Monocytes 10.7 % (1.7-9.3); Absolute Eosinophils 0.1 10^3/uL (0-0.7); Absolute Lymphocytes 1.5 10^3/uL (1.2-3.4); Absolute Monocytes 0.7 10^3/uL (0.1-0.6); Absolute Neutrophils 4.2 10^3/uL (1.4-6.5); Hematocrit 35.2 % (39.0-52.0); Hemoglobin 11.6 g/dL (13.0-18.0); Mean Corpuscular Hgb 28.7 pg (27.0-31.0); Mean Corpuscular Volume 87.1 fL (80.0-94.0); Mean Platelet Volume 8.4 fL (7.4-10.4); Nucleated Red Blood Cells % 0 % (-); Platelet Count 223 10^3/uL (130-400); Red Blood Cell Count 4.04 10^6/uL (4.70-6.10); Red Cell Dist. Width 13.3 % (11.5-14.5); White Blood Cell Count 6.5 10^3/uL (4.8-10.8)
[2024-09-03 16:00] VITALS: BP 109/84
[2024-09-03 16:07] LABS: Blood Urea Nitrogen 16 mg/dl (9-20); Calcium 8.9 mg/dl (8.4-10.2); Carbon Dioxide 24 mmol/L (22-30); Chloride 106 mmol/L (98-107); Estimated Creatinine Clearance > 125 ml/min; Glucose 109 mg/dl (70-99); Sodium 140 mmol/L (135-145); eGFR > 60.00
[2024-09-03 16:11] LABS: COVID-19 Antigen Negative (Negative)
--- NOTE | 2024-09-03 16:45 | CON.CAR ---
Addendum entered and electronically signed by Sawyer Pérez MD 09/03/24 18:14:
I met with the patient and his .
We reviewed his recent symptoms and recent rhythm findings. It s not clear he is symptomatic from his AT. He presented to the ED with cough and some SOB for past 3 days. He and his explain that they and their grandchildren have been similarly
ill.
Well appearing no distress
Reg and tachy, nl S1 and S2, no S3 or S4, no rubs
CTA B/L
I reviewed his Apple watch heart rate trends (no ECGs available) and over the past several days HRs have alternated between 50s-60s and 120-130s suggesting AT is paroxysmal.
He has maintained uninterrupted OAC.
Given likely paroxysmal AT and no clear severe symptoms from the AT likely little benefit to CV now.
We discussed AAD and he is agreeable to amiodarone. Will administer 400 mg amio oral in ER now and OK to DC (from cardiology standpoint) to home with Amio 200 mg PO BID X 3o days then 200 mg daily.
Was on Toprol XL from 25 mg in AM and 12.5 mg PM. Will stop PM BB given that we are starting amio (he had tachy-sharon post op)
I instructed him to call our office Sunday with update on his HRs. He has an appointment with Dr Drew later this month.
Original Note:
Consultation
Consultation Request
Date/Time Consultation Performed: 09/03/24
Requesting Provider: Devin Schwartz PA-C
Performing Provider: Janna Todd PA-C for Dr. Halie Pérez
Reason for Consultation: afib
Medical History
-
Chief Complaint: cough
History of Present Illness:
64-year-old male with history of diabetes mellitus, hypertension, hyperlipidemia, sleep apnea on CPAP, anxiety, COPD, who presents to 06/2024 with shortness of breath and cough. Found to have new CHF and new afib. By echo with severe HI with torn
chord and cath showed mid LAD stenosis and ultimately underwent CABGx2 NIEVES to LAD, Ao to RSVG, radial MV repair, MAZE, ANANT clip 07/11/24. He had continue PAF post op as well as some junctional rhythm. 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
and based on results his toprol dose was increased to 37.5mg daily. His toprol was then decreased by CT surgery 08/14/24 to 25mg daily as HRs were noted to be in the 40s while sleeping. He was seen in our office 08/25/24 with atach vs aflutter with
HRs in 130s and toprol dose was adjusted to 25mg QAM and 12.5mg QPM and Bardy monitor placed. Addition of amiodarone was discussed however he declined at that time. He now presents to ER by referral from PCP due to cough and concern for PNA.
Fortunately CXR negative for acute abnormalities. Noted to be in atach with RVR. Cardiology consulted for evaluation.
Past medical history:
Status post CABG x2 in situ NIEVES to LAD, Ao to RSVG to diagonal, radical MV repair, maze, ANANT clip 07/11/24
Post op AFib/atach
Post op junctional rhythm
Acute heart failure-new diagnosis 06/2024 admission
Atrial fibrillation-new diagnosis 06/2024 admission
Severe MR with torn cordae post leaflet.
Mid LAD stenosis involving diagonal branch by cath 07/07/24
DM-2, HbA1c 6.
HTN
Hyperlipidemia
ARGENIS on CPAP
COPD
NSVT on telemetry vs aberrancy
Overweight
Prior daily alcohol
Past Medical History
Past Medical History: Other (as above)
Past Surgical History: Cholecystectomy
Social History
Tobacco: Non-Smoker
Alcohol: Daily (2-3 beverages daily wine, beer)
Drug: None
Personal:
Living: With Family
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
Family History
Family History: Reviewed & Not Pertinent
Allergies / Home Medications
Allergy/AdvReac Type Severity Reaction Status Date / Time
adhesive Allergy Unknown Verified 09/03/24 15:56
adhesive tape Allergy Unknown Verified 09/03/24 15:56
�Medication �Instructions �Recorded �Confirmed �Type
rosuvastatin 5 mg tablet 5 mg PO DAILY 07/02/24 09/03/24 History
acetaminophen 325 mg tablet 650 mg (2 x 325 mg) PO Q4HPRN PRN 07/16/24 09/03/24 Rx
mild pain,headache,temp >101F #0
tabs
apixaban 5 mg tablet (Eliquis) 5 mg PO BID Blood clot 07/16/24 09/03/24 Rx
prevention/tx #60 tabs
aspirin 81 mg chewable tablet 81 mg PO DAILY Blood clot 07/16/24 09/03/24 Rx
prevention/tx #0 tabs
metoprolol succinate 25 mg 25 mg PO DAILY #30 tabs 07/17/24 09/03/24 Rx
tablet,extended release 24 hr
metoprolol succinate 25 mg 12.5 mg PO DAILY 09/03/24 09/03/24 History
tablet,extended release 24 hr
Review of Systems
-
History Source: Patient
All other systems: Negative unless noted
Physical Exam
Vital Signs
Temp Pulse Resp BP Pulse Ox
98.3 F 128 31 109/84 96
09/03/24 15:44 09/03/24 16:30 09/03/24 16:30 09/03/24 16:00 09/03/24 16:30
Lab Results
09/03/24 15:35
09/03/24 15:35
Impression / Plan
-
Primary Supervisor Special Education: Dr. Drew
Assessment:
Presentation with cough
PAF/PAT recently diagnosed 06/2024 admission which continued in postop setting, now with RVR
Post op junctional rhythm
Status post CABG x2 in situ NIEVES to LAD, Ao to RSVG to diagonal, radical MV repair, maze, ANANT clip 07/11/24
Acute heart failure-new diagnosis 06/2024 admission
Severe MR with torn cordae post leaflet.
Mid LAD stenosis involving diagonal branch by cath 07/07/24
DM-2, HbA1c 6.
HTN
Hyperlipidemia
ARGENIS on CPAP
COPD
NSVT on telemetry vs aberrancy
Overweight
Prior daily alcohol
ECHO 07/15/24: EF 60 to 65%, status post mitral valve repair with peak/mean gradients 15/4 mmHg, mitral valve area by pressure half-time 2.6 cm�, trace MR, mildly dilated LA
Plan:
-Patient presented to ER upon referral from primary care physician due to cough and concern for pneumonia. Fortunately chest x-ray with cardiomegaly, however no acute abnormalities noted, but is noted to be in paroxysmal atrial tachycardia with RVR
-He has been compliant with Eliquis, no missed doses, continue
-Consider for ER cardioversion with initiation of amiodarone 200 mg twice daily.
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 he is wearing a [employer] monitor at present, continue. consider reducing toprol dose with addition of amiodarone to avoid
bradycardia
-post op echo with results as above
-arranged for OP cardiac follow up 09/11/24, which we will keep
Data Reviewed
-
EKG: Tracing Personally Visualized and interpreted
Radiology: Report Reviewed by me
Medical Tests (Nuc Med, Echo etc): Report Reviewed by me
Labs: Labs Reviewed by me
Old Records: Reviewed
[2024-09-03 16:48] LABS: NT-proBNP 796 pg/ml; Troponin I 0.076 ng/ml
[2024-09-03 17:00] VITALS: BP 126/96
[2024-09-03 17:49] LABS: ALT (SGPT) 20 U/L (0-50); AST (SGOT) 23 U/L (17-59); Albumin 3.8 g/dl (3.5-5.0); Alkaline Phosphatase 102 U/L (38-126); Blood Urea Nitrogen 17 mg/dl (9-20); Calcium 8.8 mg/dl (8.4-10.2); Carbon Dioxide 25 mmol/L (22-30); Chloride 106 mmol/L (98-107); Estimated Creatinine Clearance 111 ml/min; Glucose 96 mg/dl (70-99); Potassium 4.1 mmol/L (3.5-5.1); Sodium 140 mmol/L (135-145); Total Bilirubin 0.4 mg/dl (0.2-1.3); Total Protein 6.2 g/dl (6.3-8.2); eGFR > 60.00
[2024-09-03 18:00] VITALS: BP 121/93
[2024-09-03] MEDS: PACERONE 400 MG PO (18:14)
== END 2024-09-03 18:26 | disposition home or self-care (01) ==
LOC: EMR 14:49
PROVIDERS: Physician Assistant; EMERGENCY PHYSICIAN Emergency Medicine; FAMILY PHYSICIAN Student in an Organized Health Care Education/Training Program
DX: I47.19 Other supraventricular tachycardia (principal); R05.9 Cough, unspecified; I48.91 Unspecified atrial fibrillation; I11.0 Hypertensive heart disease with heart failure; I50.9 Heart failure, unspecified; E11.9 Type 2 diabetes mellitus without complications; E66.3 Overweight; E78.00 Pure hypercholesterolemia, unspecified; G47.33 Obstructive sleep apnea (adult) (pediatric); I25.10 Atherosclerotic heart disease of native coronary artery without angina pectoris; J44.9 Chronic obstructive pulmonary disease, unspecified; Z79.01 Long term (current) use of anticoagulants; Z90.49 Acquired absence of other specified parts of digestive tract; Z95.1 Presence of aortocoronary bypass graft
CPT/HCPCS: 99283; 71046; 80048; 80053; 83880; 84484; 85025; 87502; 87811; 93005

== ENCOUNTER 2024-11-07 09:40 | Day surgery (SDC) | payer OTHER, SELFPAY | END 2024-11-07 10:20 | disposition home or self-care (01) | LOC: CATH 09:40 | PROVIDERS: ATTENDING PHYSICIAN Internal Medicine Cardiovascular Disease; FAMILY PHYSICIAN Student in an Organized Health Care Education/Training Program; OTHER PHYSICIAN Nuclear Medicine Nuclear Cardiology | DX: I48.0 Paroxysmal atrial fibrillation (principal); Z53.09 Procedure and treatment not carried out because of other contraindication; I45.10 Unspecified right bundle-branch block; E11.9 Type 2 diabetes mellitus without complications; I10 Essential (primary) hypertension; E78.5 Hyperlipidemia, unspecified; G47.33 Obstructive sleep apnea (adult) (pediatric); F41.9 Anxiety disorder, unspecified; J44.9 Chronic obstructive pulmonary disease, unspecified; I25.10 Atherosclerotic heart disease of native coronary artery without angina pectoris; Z95.1 Presence of aortocoronary bypass graft; Z79.82 Long term (current) use of aspirin; Z79.01 Long term (current) use of anticoagulants | CPT/HCPCS: 93005 ==

== ENCOUNTER → 2024-11-13 12:50 | Outpatient (REF) | payer OTHER, SELFPAY | LOC: HWRCS 12:50 | PROVIDERS: ATTENDING PHYSICIAN Nuclear Medicine Nuclear Cardiology; FAMILY PHYSICIAN Family Medicine | DX: I48.0 Paroxysmal atrial fibrillation (principal) | CPT/HCPCS: 93306 ==

== ENCOUNTER 2024-11-28 08:44 | Outpatient (RCR) | payer OTHER, SELFPAY | END 2024-11-28 23:59 | disposition home or self-care (01) | LOC: CRHB 08:44 | PROVIDERS: ATTENDING PHYSICIAN Nuclear Medicine Nuclear Cardiology | DX: I25.10 Atherosclerotic heart disease of native coronary artery without angina pectoris (principal); Z95.4 Presence of other heart-valve replacement; Z95.1 Presence of aortocoronary bypass graft | CPT/HCPCS: 93797; 93798; G0422 ==

== ENCOUNTER 2024-12-26 08:41 | Outpatient (RCR) | payer OTHER, SELFPAY | END 2024-12-26 23:59 | disposition home or self-care (01) | LOC: CRHB 08:41 | PROVIDERS: ATTENDING PHYSICIAN Nuclear Medicine Nuclear Cardiology | DX: Z95.4 Presence of other heart-valve replacement (principal); I25.10 Atherosclerotic heart disease of native coronary artery without angina pectoris (principal); Z95.1 Presence of aortocoronary bypass graft | CPT/HCPCS: 93798; G0422 ==

== ENCOUNTER → 2025-09-30 14:53 | Outpatient (REF) | payer OTHER, SELFPAY | LOC: RCS 14:53 | PROVIDERS: ATTENDING PHYSICIAN Nuclear Medicine Nuclear Cardiology; FAMILY PHYSICIAN Family Medicine | DX: I48.0 Paroxysmal atrial fibrillation (principal); I25.10 Atherosclerotic heart disease of native coronary artery without angina pectoris; Z95.1 Presence of aortocoronary bypass graft | CPT/HCPCS: 93306 ==